=== PATIENT | male | born 1960 | race African-American/Black ===

== ENCOUNTER 2018-06-10 12:14 | Emergency (ER) | payer OTHER ==
--- NOTE | 2018-06-10 13:18 | RAD REPORT ---
EXAM DESCRIPTION: RAD - Hip Right 2 View - 06/10/2018 1:12 pm CLINICAL HISTORY: Right hip pain FINDINGS: No fracture or dislocation is seen. Vascular calcifications are noted . Mild osteoarthritis involves the right hip consisting joint space narrowing and subchondral scleros is
--- NOTE | 2018-06-10 13:55 | EDPHYS ---
Physician Documentation [facility] Name: Toni Duncan Age: 58 yrs Sex: Male : 1960 Arrival Date: 06/10/2018 Time: 12:18 Bed 10 Private MD: ED Physician Mookie Lomeli HPI: 06/10 13:45 This 58 yrs old Black Male presents to ER via Ambulatory with complaints of Hip Pain. pm1 13:45 The patient or guardian reports pain. that occurred outdoors, sustained from a fall, pm1 There is no obvious deformity, The patient is able to self ambulate. The patient is able to bear their full body weight. There is no radiation of the patient's discomfort. The complaints affect the . 13:45 Onset: The symptoms/episode began/occurred 3 month(s) ago. Modifying factors: The pm1 symptoms are alleviated by nothing, the symptoms are aggravated by any movement. Associated signs and symptoms: Pertinent negatives: fever, nausea, shortness of breath, vomiting, weakness. The patient has not recently seen a physician. Patient with fall three months ago with resulting right hip pain. Patient able to ambulate. 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 - Social history:: Smoking status: Patient/guardian denies using tobacco. - Ebola Screening: : Patient negative for fever greater than or equal to 101.5 degrees Fahrenheit, and additional compatible Ebola Virus Disease symptoms Patient denies exposure to infectious person Patient denies travel to an Ebola-affected area in the 21 days before illness onset. ROS: 13:45 Constitutional: Negative for fever, chills, and weight loss, Eyes: Negative for injury, pm1 pain, redness, and discharge, ENT: Negative for injury, pain, and discharge, Neck: Negative for injury, pain, and swelling, Cardiovascular: Negative for chest pain, palpitations, and edema, Respiratory: Negative for shortness of breath, cough, wheezing, and pleuritic chest pain, Abdomen/GI: Negative for abdominal pain, nausea, vomiting, diarrhea, and constipation, Back: Negative for injury and pain, : Negative for injury, bleeding, discharge, and swelling. 13:45 Skin: Negative for injury, rash, and discoloration, Neuro: Negative for headache, weakness, numbness, tingling, and seizure. 13:45 MS/extremity: Positive for pain, of the right hip, Negative for decreased range of motion, deformity. Exam: 13:45 Constitutional: This is a well developed, well nourished patient who is awake, alert, pm1 and in no acute distress. Head/Face: Normocephalic, atraumatic. Eyes: Pupils equal round and reactive to light, extra-ocular motions intact. Lids and lashes normal. Conjunctiva and sclera are non-icteric and not injected. Cornea within normal limits. Periorbital areas with no swelling, redness, or edema. ENT: Nares patent. No nasal discharge, no septal abnormalities noted. Tympanic membranes are normal and external auditory canals are clear. Oropharynx with no redness, swelling, or masses, exudates, or evidence of obstruction, uvula midline. Mucous membranes moist. Neck: Trachea midline, no thyromegaly or masses palpated, and no cervical lymphadenopathy. Supple, full range of motion without nuchal rigidity, or vertebral point tenderness. No Meningismus. Chest/axilla: Normal chest wall appearance and motion. Nontender with no deformity. No lesions are appreciated. Cardiovascular: Regular rate and rhythm with a normal S1 and S2. No gallops, murmurs, or rubs. Normal PMI, no JVD. No pulse deficits. Respiratory: Lungs have equal breath sounds bilaterally, clear to auscultation and percussion. No rales, rhonchi or wheezes noted. No increased work of breathing, no retractions or nasal flaring. Abdomen/GI: Soft, non-tender, with normal bowel sounds. No distension or tympany. No guarding or rebound. No evidence of tenderness throughout. Back: No spinal tenderness. No costovertebral tenderness. Full range of motion. Skin: Warm, dry with normal turgor. Normal color with no rashes, no lesions, and no evidence of cellulitis. 13:45 Musculoskeletal/extremity: Extremities: grossly normal except: noted in the right hip: pain, ROM: intact in all extremities. 13:45 Neuro: Orientation: is normal, Motor: is normal, moves all fours. Vital Signs: 12:43 BP 187 / 103; Pulse 88; Resp 18; Temp 97.9(O); Pulse Ox 100% on R/A; Weight 86.18 kg; hj Height 5 ft. 8 in. (172.72 cm); Pain 3/10; 12:43 Body Mass Index 28.89 (86.18 kg, 172.72 cm) hj MDM: 13:45 Data reviewed: vital signs. Data interpreted: Pulse oximetry: on room air is 100 %. pm1 Interpretation: normal. 13:46 Patient medically screened. pm1 13:54 Counseling: I had a detailed discussion with the patient and/or guardian regarding: the pm1 historical points, exam findings, and any diagnostic results supporting the discharge/admit diagnosis, radiology results, the need for outpatient follow up, to return to the emergency department if symptoms worsen or persist or if there are any questions or concerns that arise at home. 06/10 12:58 Order name: Hip Right 2 View XRAY; Complete Time: 13:45 Administered Medications: No medications were administered Disposition: 06/10/18 13:55 Discharged to Home. Impression: Pain in right hip, Other specified arthritis, right hip. - Condition is Stable. - Discharge Instructions: Joint Pain, Arthritis, Hip Pain. - Prescriptions for Tramadol 50 mg Oral Tablet - take 1 tablet by ORAL route every 8 hours as needed; 20 tablet. - Medication Reconciliation Form, Thank You Letter, Prescription Opioid Use form. - Follow up: Emergency Department; When: As needed; Reason: Worsening of condition. Follow up: Private Physician; When: 2 - 3 days; Reason: Recheck today's complaints, Continuance of care, Re-evaluation by your physician. - Problem is new. - Symptoms have improved. Addendum: 06/23/2018 07:27 Co-signature as Attending Physician, Mookie Lomeli MD I agree with the assessment and k dr plan of care. Signatures: Dispatcher [employer] EDMO Mookie Lomeli MD MD [facility] Gurinder Goel RN RN hj Marinas, Titi, COMMUNICATIONS COORDINATOR COMMUNICATIONS COORDINATOR pm1 Corrections: (The following items were deleted from the chart) 01 13:56 13:55 06/10/2018 13:55 Discharged to Home. Impression: Pain in right hip. Condition is pm1 Stable. Forms are Medication Reconciliation Form, Thank You Letter, Antibiotic Education, Prescription Opioid Use. Follow up: Emergency Department; When: As needed; Reason: Worsening of condition. Follow up: Private Physician; When: 2 - 3 days; Reason: Recheck today's complaints, Continuance of care, Re-evaluation by your physician. Problem is new. Symptoms have improved. pm1 14:02 13:56 06/10/2018 13:55 Discharged to Home. Impression: Pain in right hip; Other hj specified arthritis, right hip. Condition is Stable. Discharge Instructions: Joint Pain, Arthritis, Hip Pain. Prescriptions for Tramadol 50 mg Oral Tablet - take 1 tablet by ORAL route every 8 hours as needed; 20 tablet. and Forms are Medication Reconciliation Form, Thank You Letter, Prescription Opioid Use. Follow up: Emergency Department; When: As needed; Reason: Worsening of condition. Follow up: Private Physician; When: 2 - 3 days; Reason: Recheck today's complaints, Continuance of care, Re-evaluation by your physician. Problem is new. Symptoms have improved. pm1
--- NOTE | 2018-06-10 13:55 | ER ---
Nurse's Notes [facility] Name: Toni Duncan Age: 58 yrs Sex: Male : 1960 Arrival Date: 06/10/2018 Time: 12:18 Bed 10 Private MD: Diagnosis: Pain in right hip;Other specified arthritis, right hip Presentation: 06/10 12:39 Presenting complaint: Patient states: i fell out of a chair a month ago, and landed on hj my butt; took an US that time; now the pain is still there, R hip, pain is 5/10; denies tingling and numbness on RF leg;. Transition of care: patient was not received from another setting of care. Onset of symptoms was June 10, 2018. Risk Assessment: Do you want to hurt yourself or someone else? Patient reports no desire to harm self or others. Initial Sepsis Screen: Does the patient meet any 2 criteria? No. Patient's initial sepsis screen is negative. Does the patient have a suspected source of infection? No. Patient's initial sepsis screen is negative. Care prior to arrival: None. 12:39 Method Of Arrival: Ambulatory 12:39 Acuity: MIKE 4 hj Triage Assessment: 12:43 General: Appears in no apparent distress. uncomfortable, Behavior is calm, cooperative, hj appropriate for age. Pain: Complains of pain in R hip. 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 - Social history:: Smoking status: Patient/guardian denies using tobacco. - Ebola Screening: : Patient negative for fever greater than or equal to 101.5 degrees Fahrenheit, and additional compatible Ebola Virus Disease symptoms Patient denies exposure to infectious person Patient denies travel to an Ebola-affected area in the 21 days before illness onset. Screenin:42 Abuse screen: Denies threats or abuse. Denies injuries from another. Nutritional hj screening: No deficits noted. Tuberculosis screening: No symptoms or risk factors identified. Fall Risk Fall in past 12 months (25 points). Vital Signs: 12:43 BP 187 / 103; Pulse 88; Resp 18; Temp 97.9(O); Pulse Ox 100% on R/A; Weight 86.18 kg; hj Height 5 ft. 8 in. (172.72 cm); Pain 3/10; 12:43 Body Mass Index 28.89 (86.18 kg, 172.72 cm) hj ED Course: 12:18 Patient arrived in ED. mr 12:41 Triage completed. hj 12:43 Arm band placed on right wrist. hj 12:43 Patient has correct armband on for positive identification. Placed in gown. Bed in low hj position. Call light in reach. 13:05 Patient moved to radiology AMBULATED. jb2 13:12 Hip Right 2 View XRAY In Process Unspecified. EDMS 13:13 X-ray completed. Patient tolerated procedure well. Patient moved back from radiology. jb2 13:45 Titi Cloud NP is PHCP. pm1 13:45 Mookie Lomeli MD is Attending Physician. pm1 13:51 Gurinder Goel RN is Primary Nurse. hj 14:01 No provider procedures requiring assistance completed. Patient did not have IV access hj during this emergency room visit. Administered Medications: No medications were administered Outcome: 13:55 Discharge ordered by . pm1 14:01 Discharged to home ambulatory. hj 14:01 Condition: stable 14:01 Discharge instructions given to patient, Instructed on discharge instructions, follow up and referral plans. medication usage, Demonstrated understanding of instructions, follow-up care, medications, Prescriptions given X 1. 14:02 Patient left the ED. Signatures: Dispatcher [employer] EDOH WaiLynda Anjana Davilae jb2 Gurinder Goel RN RN Titi Calvert NP [employer] P[employer]ER pm1 Corrections: (The following items were deleted from the chart) 12:45 12:43 Pulse 88bpm; Resp 18bpm; Pulse Ox 100% RA; Temp 97.9F Oral; 86.18 kg; Height 5 hj ft. 8 in.; BMI: 28.8; Pain 3/10; hj
== END 2018-06-10 14:02 | disposition home or self-care (01) ==
LOC: ER 12:14
DX: M13.851 Other specified arthritis, right hip (principal); I10 Essential (primary) hypertension; Z99.2 Dependence on renal dialysis
CPT/HCPCS: 99283

== ENCOUNTER 2018-10-01 10:22 | Emergency (ER) | payer OTHER ==
--- NOTE | 2018-10-01 10:47 | ER ---
Nurse's Notes [facility] Name: Toni Duncan Age: 58 yrs Sex: Male : 1960 Arrival Date: 10/01/2018 Time: 10:24 Bed 14 Private MD: Raul Gomez Atiq Diagnosis: Person with feared health complaint in whom no diagnosis is made Presentation: 10/01 10:34 Presenting complaint: Patient states: Dialysis this morning from [id number], reports jl7 neck pain every time he gets done with dialysis and sinus pain. "The dialysis nurse wanted me to get checked out cause I was moving my feet back and forth real fast and she thought maybe I had a seizure. I was talking to her the whole time so I don't know.". Transition of care: patient was not received from another setting of care. Acute neurological deficit: none identified. Onset of symptoms was October 01, 2018 at 10:00. Risk Assessment: Do you want to hurt yourself or someone else? Patient reports no desire to harm self or others. Initial Sepsis Screen: Does the patient meet any 2 criteria? No. Patient's initial sepsis screen is negative. Does the patient have a suspected source of infection? No. Patient's initial sepsis screen is negative. Care prior to arrival: None. 10:34 Method Of Arrival: Ambulatory jl7 10:34 Acuity: MIKE 3 jl7 Historical: - Allergies: 10:38 No Known Allergies; jl7 - Home Meds: 10:38 losartan 50 mg oral tab [Active]; furosemide 80 mg Oral tab 1 tab 2 times per day jl7 [Active]; isosorbide mononitrate 30 mg Oral Tb24 1 tab twice a day [Active]; aspirin 81 mg Oral chew [Active]; carvedilol 25 mg Oral tab 1 tab 2 times per day [Active]; Novolin N Sub-Q [Active]; - PMHx: 10:38 dialyis; Hypertension; ESRD; Diabetes - NIDDM; jl7 - Immunization history:: Adult Immunizations up to date. - Social history:: Smoking status: Patient/guardian denies using tobacco. - Ebola Screening: : No symptoms or risks identified at this time. Screenin:40 Abuse screen: Denies threats or abuse. Denies injuries from another. Nutritional jl7 screening: No deficits noted. Tuberculosis screening: No symptoms or risk factors identified. Fall Risk None identified. Assessment: 10:40 General: Appears in no apparent distress. comfortable, Behavior is calm, cooperative, jl7 appropriate for age. Pain: Complains of pain in bridge of nose. Neuro: Level of Consciousness is awake, alert, obeys commands, Oriented to person, place, time, situation. Cardiovascular: Patient's skin is warm and dry. Respiratory: Airway is patent Respiratory effort is even, unlabored, Respiratory pattern is regular, symmetrical. GI: No signs and/or symptoms were reported involving the gastrointestinal system. : No signs and/or symptoms were reported regarding the genitourinary system. EENT: No signs and/or symptoms were reported regarding the EENT system. Derm: Skin is pink, warm \\T\\ dry. Musculoskeletal: No signs and/or symptoms reported regarding the musculoskeletal system. Vital Signs: 10:38 BP 169 / 103; Pulse 87; Resp 16 S; Temp 97.9(O); Pulse Ox 97% on R/A; Weight 86.18 kg jl7 (R); Pain 6/10; ED Course: 10:24 Patient arrived in ED. as 10:24 Raul Gomez MD is Private Physician. as 10:26 Amberly Olguin RN is Primary Nurse. jl7 10:36 Myra Santos FNP-C is PHCP. snw 10:36 Soto Vásquez MD is Attending Physician. snw 10:36 Triage completed. jl7 10:38 Arm band placed on right wrist. jl7 10:40 Patient has correct armband on for positive identification. Bed in low position. Call jl7 light in reach. Side rails up X 1. Pulse ox on. NIBP on. 10:45 Raul Gomez MD is Referral Physician. snw 10:59 No provider procedures requiring assistance completed. Patient did not have IV access jl7 during this emergency room visit. Administered Medications: No medications were administered Outcome: 10:46 Discharge ordered by . snw 10:59 Discharged to home ambulatory, with family. jl7 10:59 Condition: stable 10:59 Discharge instructions given to patient, family, Instructed on discharge instructions, follow up and referral plans. Demonstrated understanding of instructions, follow-up care. 10:59 Patient left the ED. jl7 Signatures: Myra Santos, VANCE-C BOLT SAWYER-Csnw Deanna Perry Jahala, RN RN jl7
--- NOTE | 2018-10-01 10:47 | EDPHYS ---
Physician Documentation [facility] Name: Toni Duncan Age: 58 yrs Sex: Male : 1960 Arrival Date: 10/01/2018 Time: 10:24 Bed 14 Private MD: Raul Gomez Atiq ED Physician Soto Vásquez HPI: 10/01 11:22 This 58 yrs old Black Male presents to ER via Ambulatory with complaints of Neck Pain, snw <24hrs Old, Sinus Pain. 11:22 The patient or guardian complains of tenderness. The symptoms are located on the bridge snw of nose and right trapezius and left trapezius. Onset: The symptoms/episode began/occurred post dialysis. Context: The neck injury/problem resulted from pt states this happens post dialysis regularly. Associated signs and symptoms: Pertinent negatives: fever, headache, nausea, weakness. The pain does not radiate. Modifying factors: The symptoms are alleviated by time the symptoms are aggravated by dialysis. Severity of symptoms: At their worst the symptoms were mild. The patient has experienced similar episodes in the past. The patient has been recently seen by a physician:. Historical: - Allergies: 10:38 No Known Allergies; jl7 - Home Meds: 10:38 losartan 50 mg oral tab [Active]; furosemide 80 mg Oral tab 1 tab 2 times per day jl7 [Active]; isosorbide mononitrate 30 mg Oral Tb24 1 tab twice a day [Active]; aspirin 81 mg Oral chew [Active]; carvedilol 25 mg Oral tab 1 tab 2 times per day [Active]; Novolin N Sub-Q [Active]; - PMHx: 10:38 dialyis; Hypertension; ESRD; Diabetes - NIDDM; jl7 - Immunization history:: Adult Immunizations up to date. - Social history:: Smoking status: Patient/guardian denies using tobacco. - Ebola Screening: : No symptoms or risks identified at this time. ROS: 11:19 Constitutional: Negative for fever, chills, and weight loss, Eyes: Negative for injury, snw pain, redness, and discharge, ENT: Negative for injury, pain, and discharge, Cardiovascular: Negative for chest pain, palpitations, and edema, Respiratory: Negative for shortness of breath, cough, wheezing, and pleuritic chest pain, Abdomen/GI: Negative for abdominal pain, nausea, vomiting, diarrhea, and constipation, Back: Negative for injury and pain, : Negative for injury, bleeding, discharge, and swelling, MS/Extremity: Negative for injury and deformity, Skin: Negative for injury, rash, and discoloration, Neuro: Negative for headache, weakness, numbness, tingling, and seizure, Psych: Negative for depression, anxiety, suicide ideation, homicidal ideation, and hallucinations. 11:19 Neck: Positive for tenderness, pt states he has a pulling sensation to lateral neck and a pressure to the bridge of his nose post dialysis several times, Dialysis nurse recommended pt come to ED as he had above s/s and moved his legs a lot during dialysis. Exam: 11:04 Constitutional: This is a well developed, well nourished patient who is awake, alert, snw and in no acute distress. Head/Face: Normocephalic, atraumatic. Eyes: Pupils equal round and reactive to light, extra-ocular motions intact. Lids and lashes normal. Conjunctiva and sclera are non-icteric and not injected. Cornea within normal limits. Periorbital areas with no swelling, redness, or edema. ENT: Nares patent. No nasal discharge, no septal abnormalities noted. Tympanic membranes are normal and external auditory canals are clear. Oropharynx with no redness, swelling, or masses, exudates, or evidence of obstruction, uvula midline. Mucous membranes moist. Chest/axilla: Normal chest wall appearance and motion. Nontender with no deformity. No lesions are appreciated. Cardiovascular: Regular rate and rhythm with a normal S1 and S2. No gallops, murmurs, or rubs. Normal PMI, no JVD. No pulse deficits. Respiratory: Lungs have equal breath sounds bilaterally, clear to auscultation and percussion. No rales, rhonchi or wheezes noted. No increased work of breathing, no retractions or nasal flaring. Abdomen/GI: Soft, non-tender, with normal bowel sounds. No distension or tympany. No guarding or rebound. No evidence of tenderness throughout. Back: No spinal tenderness. No costovertebral tenderness. Full range of motion. Skin: Warm, dry with normal turgor. Normal color with no rashes, no lesions, and no evidence of cellulitis. MS/ Extremity: Pulses equal, no cyanosis. Neurovascular intact. Full, normal range of motion. Neuro: Awake and alert, GCS 15, oriented to person, place, time, and situation. Cranial nerves II-XII grossly intact. Motor strength 5/5 in all extremities. Sensory grossly intact. Cerebellar exam normal. Normal gait. Psych: Awake, alert, with orientation to person, place and time. Behavior, mood, and affect are within normal limits. 11:04 Neck: External neck: tenderness, that is mild, of the left mid cervical area, right mid cervical area, left trapezius and right trapezius. Vital Signs: 10:38 BP 169 / 103; Pulse 87; Resp 16 S; Temp 97.9(O); Pulse Ox 97% on R/A; Weight 86.18 kg jl7 (R); Pain 6/10; MDM: 10:36 Patient medically screened. snw 11:18 Data reviewed: vital signs, nurses notes. Data interpreted: Pulse oximetry: on room air snw is 97 %. Interpretation: acceptable. Counseling: I had a detailed discussion with the patient and/or guardian regarding: the historical points, exam findings, and any diagnostic results supporting the discharge/admit diagnosis, the presence of at least one elevated blood pressure reading (>120/80) during this emergency department visit, the need for outpatient follow up, to return to the emergency department if symptoms worsen or persist or if there are any questions or concerns that arise at home. Special discussion: I have referred the patient to see his PCP for further evaluation of high blood pressure. Based on the history and exam findings, there is no indication for further emergent testing or inpatient evaluation. I discussed with the patient/guardian the need to see the primary care provider for further evaluation of the symptoms. Administered Medications: No medications were administered Disposition: 13:06 Co-signature as Attending Physician, Soto Vásquez MD. rn Disposition: 10/01/18 10:46 Discharged to Home. Impression: Person with feared health complaint in whom no diagnosis is made. - Condition is Stable. - Discharge Instructions: Sinus Headache, Neck Exercises. - Medication Reconciliation Form, Thank You Letter, Antibiotic Education, Prescription Opioid Use form. - Follow up: Raul Gomez MD; When: As needed; Reason: Recheck today's complaints, Continuance of care, Re-evaluation by your physician. Follow up: Emergency Department; When: As needed; Reason: Fever > 102 F, Worsening of condition. Signatures: Myra Santos, ANIMAL PHYSIOLOGIST-C ANIMAL PHYSIOLOGIST-Csnw Soto Vásquez MD MD rn Leal, Jahala, RN RN jl7 Corrections: (The following items were deleted from the chart) 10:59 10:46 10/01/2018 10:46 Discharged to Home. Impression: Person with feared health jl7 complaint in whom no diagnosis is made. Condition is Stable. Forms are Medication Reconciliation Form, Thank You Letter, Antibiotic Education, Prescription Opioid Use. Follow up: Raul Gomez; When: As needed; Reason: Recheck today's complaints, Continuance of care, Re-evaluation by your physician. Follow up: Emergency Department; When: As needed; Reason: Fever > 102 F, Worsening of condition. snw
== END 2018-10-01 10:59 | disposition home or self-care (01) ==
LOC: ER 10:22
DX: Z71.1 Person with feared health complaint in whom no diagnosis is made (principal); M54.2 Cervicalgia; J34.89 Other specified disorders of nose and nasal sinuses; E11.22 Type 2 diabetes mellitus with diabetic chronic kidney disease; I12.0 Hypertensive chronic kidney disease with stage 5 chronic kidney disease or end stage renal disease; N18.6 End stage renal disease; Z99.2 Dependence on renal dialysis
CPT/HCPCS: 99283

== ENCOUNTER 2019-03-13 06:19 | Emergency (ER) | payer OTHER ==
--- NOTE | 2019-03-13 08:03 | EDPHYS ---
Physician Documentation [facility] Name: Toni Duncan Age: 59 yrs Sex: Male : 1960 Arrival Date: 03/13/2019 Time: 06:20 Bed 7 Private MD: ED Physician Salvador العراقي HPI: 03/13 06:37 This 59 yrs old Black Male presents to ER via Ambulatory with complaints of Blister on jr8 foot. 06:37 The affected area is on the lateral side of right foot and right fifth toe. Progress: jr8 The patient reports no change in. The patient has not experienced similar symptoms in the past. Pt with hx of ESRD and DMII with wound to right lateral dorsum of foot for 1.5 weeks after wearing poorly fitting boots. . Historical: - Allergies: 06:31 No Known Allergies; ak1 - Home Meds: 06:31 isosorbide mononitrate 30 mg Oral Tb24 1 tab twice a day [Active]; ak1 06:35 carvedilol 25 mg Oral tab 1 tab 2 times per day [Active]; furosemide 80 mg Oral tab 1 wh tab 2 times per day [Active]; 06:36 aspirin 81 mg Oral chew 1 tab once daily [Active]; Insulin: Regular Sub-Q [Active]; wh - PMHx: 06:31 Diabetes - NIDDM; dialyis; ESRD; Hypertension; ak1 - PSHx: 06:31 dialysis shunt to left arm; ak1 - Immunization history:: Adult Immunizations unknown. - Social history:: Smoking status: Patient/guardian denies using tobacco. - Ebola Screening: : No symptoms or risks identified at this time. ROS: 06:37 Constitutional: Negative for fever, chills, and weight loss, Eyes: Negative for injury, jr8 pain, redness, and discharge, ENT: Negative for injury, pain, and discharge, Neck: Negative for injury, pain, and swelling, Cardiovascular: Negative for chest pain, palpitations, and edema, Respiratory: Negative for shortness of breath, cough, wheezing, and pleuritic chest pain, Abdomen/GI: Negative for abdominal pain, nausea, vomiting, diarrhea, and constipation, Back: Negative for injury and pain, MS/Extremity: Negative for injury and deformity. 06:37 MS/extremity: Positive for wound to dorsum of right lateral foot. Exam: 06:45 Constitutional: This is a well developed, well nourished patient who is awake, alert, jr8 and in no acute distress. Head/Face: Normocephalic, atraumatic. Eyes: Pupils equal round and reactive to light, extra-ocular motions intact. Lids and lashes normal. Conjunctiva and sclera are non-icteric and not injected. Cornea within normal limits. Periorbital areas with no swelling, redness, or edema. ENT: Nares patent. No nasal discharge, no septal abnormalities noted. Tympanic membranes are normal and external auditory canals are clear. Oropharynx with no redness, swelling, or masses, exudates, or evidence of obstruction, uvula midline. Mucous membranes moist. Neck: Trachea midline, no thyromegaly or masses palpated, and no cervical lymphadenopathy. Supple, full range of motion without nuchal rigidity, or vertebral point tenderness. No Meningismus. Chest/axilla: Normal chest wall appearance and motion. Nontender with no deformity. No lesions are appreciated. Cardiovascular: Regular rate and rhythm with a normal S1 and S2. No gallops, murmurs, or rubs. Normal PMI, no JVD. No pulse deficits. Respiratory: Lungs have equal breath sounds bilaterally, clear to auscultation and percussion. No rales, rhonchi or wheezes noted. No increased work of breathing, no retractions or nasal flaring. Abdomen/GI: Soft, non-tender, with normal bowel sounds. No distension or tympany. No guarding or rebound. No evidence of tenderness throughout. MS/ Extremity: Pulses equal, no cyanosis. Neurovascular intact. Full, normal range of motion. 06:45 Skin: Appearance: normal except for affected area, Diabetic foot wound to dorsal aspect of right lateral foot including the fifth digit. Stage three, eschar present. Approx [id number]. Without surrounding cellulitis.. Vital Signs: 06:28 BP 220 / 116; Pulse 103; Resp 16; Temp 97.9(O); Pulse Ox 99% on R/A; Weight 58.97 kg ak1 (R); Height 5 ft. 8 in. (172.72 cm) (R); Pain 0/10; 07:33 BP 187 / 100; Pulse 101; Resp 17; Temp 98.1(O); Pulse Ox 99% on R/A; mh5 08:06 BP 191 / 100; Pulse 99; Resp 18; Pulse Ox 99% ; sv 06:28 Body Mass Index 19.77 (58.97 kg, 172.72 cm) ak 08:06 Hebert CESPEDES aware of vitals, pt has not yet taken his meds this morning. MDM: 06:31 Patient medically screened. jr8 08:00 Data reviewed: vital signs, nurses notes, radiologic studies, and as a result, I will jr8 discharge patient. Counseling: I had a detailed discussion with the patient and/or guardian regarding: the historical points, exam findings, and any diagnostic results supporting the discharge/admit diagnosis, radiology results. ED course: Called wound healing, able to see patient now in clinic with Dr. Osborn. 03/13 06:32 Order name: XRAY Foot RIGHT 3 View jr8 Administered Medications: No medications were administered Disposition: 03/14 07:22 Co-signature as Attending Physician, Salvador العراقي MD I agree with the assessment and tw4 plan of care. Disposition: 03/13/19 08:02 Discharged to Direct to Physicians Office. Impression: Open wound of foot. - Condition is Stable. - Discharge Instructions: Diabetes and Foot Care, Wound Care. - Medication Reconciliation Form, Thank You Letter form. - Follow up: Ez Osborn DPM; When: Upon discharge from the Emergency Department; Reason: Wound Recheck. - Problem is new. - Symptoms are unchanged. Signatures: Dispatcher [employer] EDMS Mariana Britton RN RN sv Roszak, Josh, PA PA [facility] Sonya Britt RN RN [facility] Salvador العراقي MD MD tw4 Corrections: (The following items were deleted from the chart) 03/13 06:35 06:31 Home Meds: carvedilol 25 mg Oral tab 1 tab 2 times per day; [facility] 06:31 Home Meds: furosemide 80 mg Oral tab 1 tab 2 times per day; [facility] 06:31 Home Meds: aspirin 81 mg Oral chew; [facility] 06:31 Home Meds: losartan 50 mg Oral tab; [facility] 06:31 Home Meds: Novolin N Sub-Q; ak1 08:07 08:02 03/13/2019 08:02 Discharged to Direct to Physicians Office. Impression: Open sv wound of foot. Condition is Stable. Forms are Medication Reconciliation Form, Thank You Letter, Antibiotic Education, Prescription Opioid Use. Follow up: Ez Osborn; When: Upon discharge from the Emergency Department; Reason: Wound Recheck. Problem is new. Symptoms are unchanged. jr8
--- NOTE | 2019-03-13 08:03 | ER ---
Nurse's Notes [facility] Name: Toni Duncan Age: 59 yrs Sex: Male : 1960 Arrival Date: 03/13/2019 Time: 06:20 Bed 7 Private MD: Diagnosis: Open wound of foot Presentation: 03/13 06:29 Presenting complaint: Patient states: right foot wound from his boot rubbing. ak1 Transition of care: patient was not received from another setting of care. Onset of symptoms is unknown. Risk Assessment: Do you want to hurt yourself or someone else? Patient reports no desire to harm self or others. Initial Sepsis Screen: Does the patient meet any 2 criteria? No. Patient's initial sepsis screen is negative. Does the patient have a suspected source of infection? No. Patient's initial sepsis screen is negative. Care prior to arrival: None. 06:29 Method Of Arrival: Ambulatory ak1 06:29 Acuity: MIKE 3 ak1 Triage Assessment: 06:31 General: Appears in no apparent distress. Behavior is calm, cooperative. Pain: Denies ak1 pain. Historical: - Allergies: 06:31 No Known Allergies; ak1 - Home Meds: 06:31 isosorbide mononitrate 30 mg Oral Tb24 1 tab twice a day [Active]; ak1 06:35 carvedilol 25 mg Oral tab 1 tab 2 times per day [Active]; furosemide 80 mg Oral tab 1 wh tab 2 times per day [Active]; 06:36 aspirin 81 mg Oral chew 1 tab once daily [Active]; Insulin: Regular Sub-Q [Active]; wh - PMHx: 06:31 Diabetes - NIDDM; dialyis; ESRD; Hypertension; ak1 - PSHx: 06:31 dialysis shunt to left arm; ak1 - Immunization history:: Adult Immunizations unknown. - Social history:: Smoking status: Patient/guardian denies using tobacco. - Ebola Screening: : No symptoms or risks identified at this time. Screenin:31 Abuse screen: Denies threats or abuse. Denies injuries from another. Nutritional wh screening: No deficits noted. Tuberculosis screening: No symptoms or risk factors identified. Fall Risk None identified. Assessment: 06:37 General: Appears in no apparent distress. Behavior is calm, cooperative, appropriate wh for age. Pain: Denies pain. Neuro: Level of Consciousness is awake, alert, obeys commands, Oriented to person, place, time, situation, Appropriate for age. Cardiovascular: Heart tones S1 S2 Capillary refill < 3 seconds. Cardiovascular: Dialysis shunt: in the left arm, with palpable thrill, with auscultated bruit. Respiratory: Airway is patent Respiratory effort is even, unlabored, Respiratory pattern is regular, symmetrical, Breath sounds are clear bilaterally. GI: Abdomen is round non-distended. : No signs and/or symptoms were reported regarding the genitourinary system. EENT: No signs and/or symptoms were reported regarding the EENT system. Derm: Skin is intact, is healthy with good turgor, Skin is pink, warm \T\ dry. normal. Derm: Skin is intact, is healthy with good turgor, Skin is pink, warm \T\ dry. normal, Wound noted Dorsum Right foot Wound is Stage 3. Musculoskeletal: Circulation, motion, and sensation intact. 07:20 Reassessment: Patient appears in no apparent distress at this time. No changes from sv previously documented assessment. Patient and/or family updated on plan of care and expected duration. Pain level reassessed. Patient is alert, oriented x 3, equal unlabored respirations, skin warm/dry/pink. 07:57 Reassessment: Rahel Duncan (spouse) phone #[phone]. [facility]. sv 08:07 Reassessment: Patient appears in no apparent distress at this time. No changes from sv previously documented assessment. Patient and/or family updated on plan of care and expected duration. Pain level reassessed. Patient is alert, oriented x 3, equal unlabored respirations, skin warm/dry/pink. Vital Signs: 06:28 BP 220 / 116; Pulse 103; Resp 16; Temp 97.9(O); Pulse Ox 99% on R/A; Weight 58.97 kg ak1 (R); Height 5 ft. 8 in. (172.72 cm) (R); Pain 0/10; 07:33 BP 187 / 100; Pulse 101; Resp 17; Temp 98.1(O); Pulse Ox 99% on R/A; mh5 08:06 BP 191 / 100; Pulse 99; Resp 18; Pulse Ox 99% ; sv 06:28 Body Mass Index 19.77 (58.97 kg, 172.72 cm) ak1 08:06 Hebert CESPEDES aware of vitals, pt has not yet taken his meds this morning. sv ED Course: 06:20 Patient arrived in ED. ds1 06:21 Hebert Hernandez PA is PHCP. jr8 06:21 Salvador العراقي MD is Attending Physician. jr8 06:28 Arm band placed on Patient placed in an exam room, on a stretcher, on pulse oximetry, ak1 Patient notified of wait time. 06:29 Triage completed. ak1 06:31 Erin Walters is Primary Nurse. wh 06:31 Patient has correct armband on for positive identification. Bed in low position. Call light in reach. Side rails up X 1. Pulse ox on. NIBP on. 06:31 Patient has correct armband on for positive identification. Bed in low position. Call ak1 light in reach. Side rails up X 1. Pulse ox on. NIBP on. 06:54 XRAY Foot RIGHT 3 View In Process Unspecified. EDMS 07:37 Awaiting radiology results. sv 07:37 Primary Nurse role handed off by Erin Walters sv 07:37 Mariana Britton, ABELARDO is Primary Nurse. sv 08:02 Ez Osborn DPM is Referral Physician. jr8 08:06 No provider procedures requiring assistance completed. Patient did not have IV access sv during this emergency room visit. Administered Medications: No medications were administered Outcome: 08:02 Discharge ordered by . jr8 08:06 Discharged to home via wheelchair, to [facility] sv 08:06 Condition: stable 08:06 Discharge instructions given to patient, Instructed on discharge instructions, follow up and referral plans. Demonstrated understanding of instructions, follow-up care. 08:07 Patient left the ED. sv Signatures: Dispatcher [employer] EDMS Mariana Britton, RN RN Yodit Ji ds1 Hebert Hernandez PA PA jr8 Krenek, Amber, RN RN Joanna Dooley [facility] Erin Walters Corrections: (The following items were deleted from the chart) 06:35 06:31 Home Meds: carvedilol 25 mg Oral tab 1 tab 2 times per day; [facility] 06:35 06:31 Home Meds: furosemide 80 mg Oral tab 1 tab 2 times per day; [facility] 06: Home Meds: aspirin 81 mg Oral chew; [facility] 06: Home Meds: losartan 50 mg Oral tab; [facility] 06:31 Home Meds: Novolin N Sub-Q; [facility]
[2019-03-13 08:11] VITALS: O2SAT 99
[2019-03-13 08:13] VITALS: TEMP 98.1
[2019-03-13 08:14] VITALS: BP 191/100
--- NOTE | 2019-03-13 09:31 | RAD REPORT ---
EXAM DESCRIPTION: RAD - Foot Right 3 View - 03/13/2019 6:54 am CLINICAL HISTORY: Right foot pain, soft tissue wound not further localized COMPARISON: None. FINDINGS: No fracture, dislocation or periosteal reaction. No erosive or destructive bone process id entifiable. The site of the wound was not noted in history or on images. Dense arterial tree calcifications are present. No air or foreign body in the soft tissues. Hardware is in place in the distal tibia from prior fracture repair. IMPRESSION: No acute or destructive bone process.
== END 2019-03-13 08:07 | disposition home or self-care (01) ==
LOC: ER 06:19
DX: E11.621 Type 2 diabetes mellitus with foot ulcer (principal); E11.22 Type 2 diabetes mellitus with diabetic chronic kidney disease; I12.0 Hypertensive chronic kidney disease with stage 5 chronic kidney disease or end stage renal disease; N18.6 End stage renal disease; Z99.2 Dependence on renal dialysis; Z79.82 Long term (current) use of aspirin; Z79.4 Long term (current) use of insulin
CPT/HCPCS: 99283

== ENCOUNTER 2019-07-17 09:37 | Inpatient (IN) | payer OTHER ==
--- OUTSIDE RECORDS SUMMARY | 2019-07-17 09:53 | XMS REPORT ---
:1960 [facility] [address] [place] [address] [address] [place] [address] Care Team Providers Name Role Phone Unavailable Unavailable Unavailable Problems This patient has no known problems. Allergies, Adverse Reactions, Alerts This patient has no known allergies or adverse reactions. Medications This patient has no known medications. Encounters Start End Encounter Admission Attending Care Care Encounter Date/Time Date/Time Type Type Clinicians Facility Department ID 2018-10-12 Inpatient [facility] [id number] 09:04:30 2019-01-27 2019-01-27 Outpatient [facility] [id number] 07:07:00 07:07:00 2019-01-26 2019-01-26 Outpatient [facility] [id number] 13:47:00 13:47:00 2018-11-11 2018-11-11 Outpatient [facility] [id number] 08:17:00 08:17:00 2018-10-05 2018-10-05 Outpatient [facility] [id number] 07:19:00 07:19:00
[2019-07-17] MEDS ORDERED: ACETAMINOPHEN 500 MG TAB PO PRN (10:59)
[2019-07-17] MEDS ORDERED: ONDANSETRON 4 MG/2 ML VIAL IV PRN (10:59)
[2019-07-17] MEDS ORDERED: MAGNESIUM HYDROXIDE 8% 30 ML PO PRN (10:59)
[2019-07-17] MEDS ORDERED: HYDRALAZINE HCL 20 MG/ML VIAL IV PRN (11:15)
--- NOTE | 2019-07-17 11:21 | P.HP ---
Certification for Inpatient Patient admitted to: Inpatient With expected LOS: >2 Midnights Patient will require the following post-hospital care: None Practitioner: I am a practitioner with admitting privileges, knowledge of patient current condition, hospital course, and medical plan of care. Services: Services provided to patient in accordance with Admission requirements found in Title 42 Section 412.3 of the Code of Federal Regulations Patient History Date of Service: 07/17/19 Primary Care Provider: Forrest Chan Reason for admission: right foot ulcer History of Present Illness: This patient is a 59-year-old male who presented for unhealing right foot ulcer. He has a history of diabetes, hypertension, end-stage renal disease on hemodialysis, diabetic foot. He was not noticed to have ulcer on the right foot for the last month. He has been following Dr. osborn. He was given oral antibiotics. He underwent superficial debridement with partial amputation of 5th toe 2 week ago. He continues to experience ulcer with some discharge. The discharge is smelly. It is painful on ambulation. No fever or chills. No nausea or vomiting. No shortness of breath or chest pain. He was directly admitted to our service from Dr. Osborn's Office for diabetic fahad infection Allergies No Known Allergies Allergy (Unverified 07/17/19 11:02) Home medications list reviewed: No (waiting for review) Home Medications: Aspirin Chewable [Aspirin Chewable*] 1 tab PO DAILY 03/16/19 Furosemide [Lasix] 1 tab PO BID 03/16/19 Isosorbide Mononitrate [Isosorbide Mononitrate ER] 1 tab PO BID 03/16/19 carvediloL [Carvedilol] 1 tab PO BID 6AM 6PM 03/16/19 Clopidogrel Bisulfate [Plavix] 75 mg PO DAILY 07/17/19 Sevelamer Carbonate [Renvela*] 1 tab PO BID 07/17/19 Sevelamer Carbonate [Renvela*] 1 tab PO TID 07/17/19 - Past Medical/Surgical History Diabetic: No -: diabetic -: htn -: dialysis -: ESRD -: foot fracture - Social History Alcohol use: No Review of Systems General: Unremarkable Eyes: Unremarkable ENT: Unremarkable Respiratory: Unremarkable Cardiovascular: Unremarkable Gastrointestinal: Unremarkable Genitourinary: Unremarkable Musculoskeletal: Other (unhealing ulcer on the right foot) Neurological: Unremarkable Physical Examination - Vital Signs Temperature: 97.1 F Blood Pressure: 160/90 Pulse: 90 Respirations: 17 Pulse Ox (%): 99 - Physical Exam General: Alert, In no apparent distress, Oriented x3, Cooperative HEENT: Atraumatic, Normocephalic, PERRLA, Mucous membr. moist/pink Neck: Supple, 2+ carotid pulse no bruit, JVD not distended Respiratory: Clear to auscultation bilaterally, Normal air movement Cardiovascular: No edema, Normal pulses, Regular rate/rhythm, Normal S1 S2, Systolic murmur Gastrointestinal: Normal bowel sounds, Soft and benign, Non-distended, No ascites Musculoskeletal: No clubbing, No swelling, Other (1 cm ulcer on the right foot with smell and swelling) Integumentary: No rashes, No breakdown Neurological: Normal gait, Normal speech, Normal strength at 5/5 x4 extr, Normal tone, Sensation intact, Normal reflexes 2+ Assessment and Plan - Plan Assessment and plans Patient was directly admitted for unhealing diabetic foot ulcer infection. He has a history of diabetes, hypertension, ESRD, and diabetic foot. He failed outpatient Surgical debridement and oral antibiotics. We started IV antibiotics including clindamycin and Zosyn empirically. Wound culture was ordered. 1. Diabetic foot ulcer infection: Patient has a nonhealing ulcer for 1 month. He received debridement and and oral antibiotics. I started IV clindamycin and Zosyn empirically. Wound culture and blood culture were ordered. Dr. Osborn was consulted. 2. ESRD: He has been on hemodialysis on Wednesday, , Wednesday. Dr. Chan was consulted. 3. DM: Started a sliding scale. A1c in the morning. Will resume home medications 4. Hypertension: Added hydralazine IV as needed. Will resume home BP medications. 5. DVT ppx on heparin. Discharge Plan: Home - Advance Directives Does patient have a Living Will: No Does patient have a Durable POA for Healthcare: No - Code Status/Comfort Care Code Status Assessed: Yes
[2019-07-17] MEDS: INSULIN -REGULAR HUMAN 50 UNIT/0.5 ML ML SQ SCH ×3 (11:30→21:00)
[2019-07-17] MEDS: CLINDAMYCIN INJ 300 MG in NA CHLORIDE 0.9% 50 ML IV SCH ×2 (12:46→16:30)
[2019-07-17] MEDS: PIPER/TAZO/NS 2.25gm 2.25 GM/50 ML BAG IVPB SCH ×2 (12:46→21:26)
[2019-07-17] MEDS ORDERED: NA CHLORIDE 0.9% 1,000 ML IV PRN (20:20)
[2019-07-17] MEDS ORDERED: MANNITOL 25% 12.5 GM/50 ML VIAL IV PRN (20:20)
--- NOTE | 2019-07-17 20:20 | P.CNS ---
Date of Consult: 07/17/19 Reason for Consult: ESRD Requesting Physician: Olga Matos Primary Care Provider: Forrest Chan Chief Complaint: right foot ulcer History of Present Illness: 59 yo BM HTN, CKD presented with a right foot ulcer. HD TTS. This patient is a 59-year-old male who presented for unhealing right foot ulcer. He has a history of diabetes, hypertension, end-stage renal disease on hemodialysis, diabetic foot. He was not noticed to have ulcer on the right foot for the last month. He has been following Dr. osborn. He was given oral antibiotics. He underwent superficial debridement with partial amputation of 5th toe 2 week ago. He continues to experience ulcer with some discharge. The discharge is smelly. It is painful on ambulation. No fever or chills. No nausea or vomiting. No shortness of breath or chest pain. He was directly admitted to our service from Dr. Osborn's Office for diabetic fahad infection Allergies No Known Allergies Allergy (Unverified 07/17/19 11:02) Home medications list reviewed: Yes Home Medications: Aspirin Chewable [Aspirin Chewable*] 1 tab PO DAILY 03/16/19 Furosemide [Lasix] 1 tab PO BID 03/16/19 Isosorbide Mononitrate [Isosorbide Mononitrate ER] 1 tab PO BID 03/16/19 carvediloL [Carvedilol] 1 tab PO BID 6AM 6PM 03/16/19 Clopidogrel Bisulfate [Plavix] 75 mg PO DAILY 07/17/19 Sevelamer Carbonate [Renvela*] 1 tab PO BID 07/17/19 Sevelamer Carbonate [Renvela*] 1 tab PO TID 07/17/19 - Past Medical/Surgical History Diabetic: No -: diabetic -: htn -: dialysis -: ESRD -: foot fracture - Social History Alcohol use: No Review of Systems 10-point ROS is otherwise unremarkable Musculoskeletal: Foot Pain Integumentary: Lesions Physical Examination Temp Pulse Resp BP Pulse Ox 97.6 F 93 H 16 150/90 H 98 07/17/19 16:00 07/17/19 16:00 07/17/19 16:00 07/17/19 16:37 07/17/19 16:00 General: Oriented x3, Cooperative HEENT: Atraumatic, Normocephalic Neck: Supple Respiratory: Clear to auscultation bilaterally Cardiovascular: Regular rate/rhythm Gastrointestinal: Soft and benign, Non-distended Musculoskeletal: No clubbing, No contractures Integumentary: No rashes, Skin lesion, Diabetic ulcer Neurological: Normal speech BG in the low 100s. Imagings Data: EXAM DESCRIPTION: RAD - Foot Right 3 View - 03/13/2019 6:54 am CLINICAL HISTORY: Right foot pain, soft tissue wound not further localized COMPARISON: None. FINDINGS: No fracture, dislocation or periosteal reaction. No erosive or destructive bone process identifiable. The site of the wound was not noted in history or on images. Dense arterial tree calcifications are present. No air or foreign body in the soft tissues. Hardware is in place in the distal tibia from prior fracture repair. IMPRESSION: No acute or destructive bone process. Conclusions/Impression: A/ ESRD on HD. HTN with CKD/ CHF. Diastolic CHF, chronic. DM II with CKD. Anemia in CKD. SIMEON/ Secondary HyperPTH. DM II with right foot ulcer. P/ Continue current POC and Medications. HD TIW. Next HD Wednesday. Restart home medications as indicated. Abx as ordered. Wound care as ordered. Follow up with podiatry. No NSAIDs. AM labs. Daily weight. Thank Dr. Matos for the consultation.
[2019-07-17] MEDS ORDERED: SEVELAMER CARBONATE 800 MG TABLET PO SCH (21:00)
[2019-07-17] MEDS ORDERED: FUROSEMIDE PO SCH (21:00)
[2019-07-17] MEDS ORDERED: ALBUMIN HUMAN 25% 50 ML IV SCH (21:00)
[2019-07-17] MEDS: ISOSORBIDE MONO SR 30 MG TAB PO SCH (21:25)
[2019-07-17] MEDS: HEPARIN 5000 UNIT/ML 1 ML VIAL SQ SCH (21:25)
[2019-07-17] MEDS: ALPRAZOLAM 0.25 MG TABLET PO PRN (21:25)
[2019-07-18] MEDS: CLINDAMYCIN INJ 300 MG in NA CHLORIDE 0.9% 50 ML IV SCH ×2 (00:19→08:11)
[2019-07-18] MEDS: carvediloL 25 MG TAB PO SCH ×2 (04:59→17:13)
[2019-07-18 05:41] LABS: Urine Appearance CLEAR; Urine Bilirubin NEGATIVE (NEG); Urine Blood NEGATIVE (NEG); Urine Color YELLOW; Urine Glucose TRACE (NEG); Urine Microscopic Reflex ORDER UMIC; Urine Protein 2+ (NEG); Urine Urobilinogen 0.2 mg/dL (0.2-1.0)
[2019-07-18 06:10] LABS: Urine Bacteria <20 /HPF (NONE SEEN); Urine Culture Reflex Order NOT NEEDED; Urine RBC <5 /HPF (NONE SEEN)
[2019-07-18 06:19] LABS: Absolute Lymphocytes (CBC) 2.1 K/uL (0.7-4.9); Basophils % 0.8 % (0-1.3); Hematocrit 29.6 % (39.6-49.0); Lymphocytes % 16.7 % (15.3-44.8); MPV 9.1 fL (7.6-11.3)
[2019-07-18 06:41] LABS: Albumin 3.4 g/dL (3.4-5.0); Bilirubin Total 0.5 mg/dL (0.2-1.0); Magnesium 2.7 mg/dL (1.8-2.4); Phosphorus 7.2 mg/dL (2.5-4.9); Potassium 4.5 mmol/L (3.5-5.1); Protein, Total 8.2 g/dL (6.4-8.2)
[2019-07-18] MEDS ORDERED: FENTANYL CITR 100 MCG/2 ML ONE (07:15)
[2019-07-18] MEDS ORDERED: LIDOCAINE 2% MPF 5 ML VIAL ONE (07:15)
[2019-07-18] MEDS ORDERED: MIDAZOLAM HCL 2 MG/2 ML INJ ONE (07:15)
[2019-07-18] MEDS ORDERED: propofoL 200 MG/20 ML VIAL IV ONE ×2 (07:15→07:49)
[2019-07-18] MEDS ORDERED: NA CHLORIDE 0.9% 0 ML ONE (07:26)
[2019-07-18] MEDS: INSULIN -REGULAR HUMAN 50 UNIT/0.5 ML ML SQ SCH ×4 (07:30→21:00)
[2019-07-18] MEDS ORDERED: NA CHLORIDE 0.9% 500 ML ONE (07:34)
--- NOTE | 2019-07-18 08:43 | P.OP ---
Preoperative diagnosis: right fifth metatarsal osteomyelitis Postoperative diagnosis: same Primary procedure: right partial fifth ray resection Secondary procedure: right fifth metatarsal bone biopsy Other procedure(s): none Anesthesia: mac with 20cc 1:1 1% lidocaine 0.5% marcaine plain Estimated blood loss: <20cc Specimen: bone Findings: as above Operative Technique: partial resection right fifth ray Complications: None Complications: none Drain(s): Other (1/4 inch [place]) Implants: none Fluids & blood products: none Transferred to: Recovery Room Condition: Good
[2019-07-18] MEDS: HEPARIN 5000 UNIT/ML 1 ML VIAL SQ SCH ×2 (09:00→22:11)
[2019-07-18] MEDS ORDERED: LIDOCAINE 1% MPF 30 ML VIAL ONE (09:08)
[2019-07-18] MEDS ORDERED: BUPIVACAINE 0.5% PF 10 ML VIAL ONE (09:08)
[2019-07-18] MEDS: ISOSORBIDE MONO SR 30 MG TAB PO SCH ×2 (10:05→22:11)
[2019-07-18] MEDS: CLOPIDOGREL 75 MG TABLET PO SCH (10:05)
[2019-07-18] MEDS: PIPER/TAZO/NS 2.25gm 2.25 GM/50 ML BAG IVPB SCH ×2 (10:06→22:10)
[2019-07-18] MEDS: SEVELAMER CARBONATE 800 MG TABLET PO SCH ×3 (10:06→17:12)
[2019-07-18] MEDS: FUROSEMIDE 40 MG TABLET PO SCH ×2 (10:06→17:12)
[2019-07-18] MEDS: ASPIRIN 81 MG CHEWABLE TABLET PO SCH (10:06)
[2019-07-18] MEDS ORDERED: VANCOMYCIN/NS 1 gm 1 GM/250 ML BAG IVPB SCH ×2 (11:00→14:00)
--- NOTE | 2019-07-18 16:41 | P.PN ---
Subjective Date of Service: 07/18/19 Primary Care Provider: Forrest Chan Chief Complaint: right foot ulcer Subjective: No new changes, No C/O voiced, Tolerating diet, Ambulating, Improving, Doing well Review of Systems General: Unremarkable Eyes: Unremarkable ENT: Unremarkable Respiratory: Unremarkable Cardiovascular: Unremarkable Gastrointestinal: Unremarkable Musculoskeletal: Foot Pain Integumentary: Lesions Neurological: Unremarkable Physical Examination - Vital Signs Temperature: 97.5 F Blood Pressure: 176/87 Pulse: 81 Respirations: 17 Pulse Ox (%): 99 - Physical Exam General: Alert, In no apparent distress, Oriented x3, Cooperative HEENT: Atraumatic, Normocephalic, PERRLA, Mucous membr. moist/pink, EOMI Neck: Supple, 2+ carotid pulse no bruit, JVD not distended Respiratory: Clear to auscultation bilaterally, Normal air movement Cardiovascular: No edema, Normal pulses, Regular rate/rhythm, Normal S1 S2 Gastrointestinal: Normal bowel sounds, Soft and benign, Non-distended, No ascites Musculoskeletal: No clubbing, No swelling, Other (right foot on dressing. No active bleeding) Integumentary: No rashes, No breakdown Neurological: Normal gait, Normal speech, Normal strength at 5/5 x4 extr, Normal tone - Studies Laboratory Data (last 24 hrs) 07/18/19 05:46: Sodium 138, Potassium 4.5, BUN 67 H, Creatinine 12.40 H*, Glucose 122 H, Phosphorus 7.2 H, Magnesium 2.7 H, Total Bilirubin 0.5, AST 9 L, ALT 14, Alkaline Phosphatase 83 07/18/19 05:46: WBC 12.8 H, Hgb 9.5 L, Hct 29.6 L, Plt Count 384 Microbiology Data (last 24 hrs): 07/17/19 14:49 Other - Right Foot Gram Stain - Final Assessment And Plan - Plan Assessment and plans Patient was directly admitted for unhealing diabetic foot ulcer infection. He has a history of diabetes, hypertension, ESRD, and diabetic foot. He failed outpatient Surgical debridement and oral antibiotics. We started IV antibiotics including clindamycin and Zosyn empirically. Wound culture pending. Dr. Osborn performed amputation. I changed IV clindamycin to vanco. ID was consulted for abx choice. 1. Diabetic foot ulcer infection: Patient has a nonhealing ulcer for 1 month. He received debridement and and oral antibiotics. I started IV clindamycin-> vanco and Zosyn empirically. Wound culture and blood culture pending. Dr. Osborn performed amputation. ID was consulted. 2. ESRD: He has been on hemodialysis on Wednesday, , Wednesday. Dr. Chan was consulted. 3. DM: Started a sliding scale. A1c in the morning. 4. Hypertension: Added hydralazine IV as needed. On BB 5. DVT ppx on heparin. Discharge Plan: Home Plan to discharge in: 48 Hours
[2019-07-18] MEDS ORDERED: VANCOMYCIN 1 GM/VIAL ONE (21:56)
--- NOTE | 2019-07-18 21:56 | P.PN ---
Date of Service: 07/18/19 Vital Signs Temp Pulse Resp BP Pulse Ox 97.5 F 81 17 176/87 H 99 07/18/19 16:42 07/18/19 16:42 07/18/19 16:42 07/18/19 16:42 07/18/19 16:42 Medications Acetaminophen (Tylenol -Extra Strength) 500 mg PO Q4HP PRN PRN Reason: temp Stop: 08/16/19 11:00 Alprazolam (Xanax) 0.25 mg PO BEDTIME PRN PRN PRN Reason: INSOMNIA Stop: 08/16/19 11:00 Last Admin: 07/17/19 21:25 Dose: 0.25 mg Aspirin (Aspirin Chewable) 81 mg PO DAILY [facility] Stop: 08/17/19 09:01 Last Admin: 07/18/19 10:06 Dose: 81 mg Calcitriol (Rocaltrol) 0.5 mcg PO DAILY [facility] Stop: 08/18/19 09:01 Carvedilol (Coreg) 25 mg PO BID 6AM 6PM [facility] Stop: 08/17/19 06:01 Last Admin: 07/18/19 17:13 Dose: 25 mg Cholecalciferol (Vitamin D 5,000 Iu Cap) 5,000 unit PO DAILY [facility] Stop: 08/18/19 09:01 Clopidogrel Bisulfate (Plavix) 75 mg PO DAILY [facility] Stop: 08/17/19 09:01 Last Admin: 07/18/19 10:05 Dose: 75 mg Epoetin Carlito (Procrit) 20,000 unit SQ 1X [facility] Stop: 08/17/19 22:01 Furosemide (Lasix) 80 mg PO BIDL [facility] Stop: 08/17/19 09:01 Last Admin: 07/18/19 17:12 Dose: 80 mg Heparin Sodium (Porcine) (Heparin 5,000 Units/Ml) 5,000 unit SQ Q12HR [facility] Stop: 08/16/19 21:01 Last Admin: 07/18/19 09:00 Dose: Not Given Heparin Sodium (Porcine) (Heparin 1,000 Units/Ml) 6,000 unit IV EVERY HD PRN PRN Reason: FLUSH AFTER EACH USE Stop: 08/16/19 20:21 Hydralazine HCl (Apresoline) 10 mg IV Q6HP PRN PRN Reason: Titrate to SBP (MUST DEFINE) Stop: 08/16/19 11:16 Piperacillin/Tazobactam/Sod Chloride (Zosyn 2.25 Gm/50 Ml Ivpb) 2.25 gm in 50 mls @ 100 mls/hr IVPB Q12HR [facility]; Protocol Stop: 08/16/19 12:01 Last Admin: 07/18/19 10:06 Dose: 50 mls Albumin Human (Albumin 25%) 50 mls @ 100 mls/hr IV EVERY HD [facility] Stop: 08/16/19 21:01 Vancomycin HCl (Vancomycin 1 Gm/250 Ml Ns Ivpb) 1 gm in 250 mls @ 166.667 mls/ hr IVPB AFTER EACH DIALYSIS [facility] Stop: 08/17/19 11:01 Insulin Human Regular (Novolin -R) 0 unit SQ ACHS [facility]; Protocol Stop: 08/16/19 11:31 Last Admin: 07/18/19 16:30 Dose: Not Given Isosorbide Mononitrate (Imdur) 30 mg PO BID [facility] Stop: 08/16/19 21:01 Last Admin: 07/18/19 10:05 Dose: 30 mg Magnesium Hydroxide (Milk Of Magnesia) 30 ml PO DAILYPRN PRN PRN Reason: CONSTIPATION Stop: 08/16/19 11:00 Mannitol (Mannitol 12.5 Gm/50 Ml Vial) 12.5 gm IV EVERY HD PRN PRN Reason: Titrate to SBP (MUST DEFINE) Stop: 08/16/19 20:21 Ondansetron HCl (Zofran) 4 mg IV Q6HP PRN PRN Reason: NAUSEA / VOMITING Stop: 08/16/19 11:00 Sevelamer Carbonate (Renvela) 800 mg PO TIDWM [facility] Stop: 08/17/19 08:01 Last Admin: 07/18/19 17:12 Dose: 800 mg Sodium Chloride (Normal Saline Flush) 10 ml IV BID [facility] Stop: 08/16/19 21:01 Last Admin: 07/18/19 10:07 Dose: 10 ml Lab Results (last 24 hrs) 07/18/19 17:20: Hemoglobin A1c 5.8 07/18/19 17:20: Magnesium 2.8 H 07/18/19 16:25: POC Glucose 150 H 07/18/19 11:54: POC Glucose 133 H 07/18/19 09:28: POC Glucose 142 H 07/18/19 05:46: Sodium 138, Potassium 4.5, Chloride 96 L, Carbon Dioxide 31, BUN 67 H, Creatinine 12.40 H*, Estimated GFR 5 L, Glucose 122 H, Calcium 9.4, Phosphorus 7.2 H, Magnesium 2.7 H, Total Bilirubin 0.5, AST 9 L, ALT 14, Alkaline Phosphatase 83, Serum Total Protein 8.2, Albumin 3.4, Globulin 4.8 H, Albumin/Globulin Ratio 0.7 L 07/18/19 05:46: WBC 12.8 H, RBC 3.30 L, Hgb 9.5 L, Hct 29.6 L, MCV 89.6, MCH 28.9, MCHC 32.2, RDW 16.1 H, Plt Count 384, MPV 9.1, Neutrophils % 72.1, Lymphocytes % 16.7, Monocytes % 7.9, Eosinophils % 2.5, Basophils % 0.8, Absolute Neutrophils 9.2 H, Absolute Lymphocytes 2.1, Absolute Monocytes 1.0, Absolute Eosinophils 0.3, Absolute Basophils 0.1 07/18/19 04:50: Urine Color Yellow, Urine Appearance Clear, Urine pH 8.0 H, Ur Specific [place] 1.010, Glucose (UA)(Auto) Trace, Urine Ketones Negative, Urine Blood Negative, Urine Nitrite Negative, Urine Bilirubin Negative, Urine Urobilinogen 0.2, Ur Leukocyte Esterase Negative, Urine RBC <5, Urine WBC <5, Ur Squamous Epith Cells <5, Urine Bacteria <20, Urine Culture Reflexed Not needed, Urine Total Protein 2+ H Microbiology Results 07/17/19 11:50 Blood - Blood Aerobic Blood Culture - Preliminary No growth in 24 hours. 07/17/19 11:50 Blood - Blood Anaerobic Blood Culture - Preliminary No growth in 24 hours. 07/17/19 14:49 Other - Right Foot Gram Stain - Final 07/17/19 14:49 Other - Right Foot Culture & Sensitivity - Preliminary Assessment/ Plan: Nephrology. CPS stable without CP or SOB. No acute events overnight. Post-op for partial 5th ray amputation. Vitals, medications, blood work and imaging reviewed in the chart. General: Oriented x3, Cooperative HEENT: Atraumatic, Normocephalic Neck: Supple Respiratory: Clear to auscultation bilaterally Cardiovascular: Regular rate/rhythm Gastrointestinal: Soft and benign, Non-distended Musculoskeletal: No clubbing, No contractures Integumentary: No rashes, Skin lesion, Diabetic ulcer Neurological: Normal speech Blood work reviewed in the chart. Imagings Data: EXAM DESCRIPTION: RAD - Foot Right 3 View - 03/13/2019 6:54 am CLINICAL HISTORY: Right foot pain, soft tissue wound not further localized COMPARISON: None. FINDINGS: No fracture, dislocation or periosteal reaction. No erosive or destructive bone process identifiable. The site of the wound was not noted in history or on images. Dense arterial tree calcifications are present. No air or foreign body in the soft tissues. Hardware is in place in the distal tibia from prior fracture repair. IMPRESSION: No acute or destructive bone process. Conclusions/Impression: A/ ESRD on HD. HTN with CKD/ CHF. Diastolic CHF, chronic. DM II with CKD. Anemia in CKD. SIMEON/ Secondary HyperPTH. DM II with right foot ulcer. P/ Continue current POC and Medications. HD TIW. Next HD . Give Procrit. Start Vitamin D. Will increase Renvela as needed. Abx as ordered. Wound care as ordered. Follow up with podiatry. No NSAIDs. AM labs. Daily weight.
[2019-07-18] MEDS ORDERED: NA CHLORIDE 0.9% 250 ML ONE (21:57)
[2019-07-18] MEDS ORDERED: EPOETIN ALFA 20,000 UNIT/1 ML VIAL SQ SCH (22:00)
[2019-07-18] MEDS ORDERED: EPOETIN ALFA 10,000 UNIT/ML VIAL SQ ONE (23:45)
[2019-07-19] MEDS ORDERED: EPOETIN ALFA 10,000 UNIT/ML VIAL ONE (00:36)
[2019-07-19] MEDS: ALPRAZOLAM 0.25 MG TABLET PO PRN ×2 (00:49→21:43)
[2019-07-19] MEDS: carvediloL 25 MG TAB PO SCH ×2 (05:32→17:24)
[2019-07-19 06:05] LABS: Absolute Lymphocytes (CBC) 1.6 K/uL (0.7-4.9); Basophils % 0.9 % (0-1.3); Hematocrit 27.9 % (39.6-49.0); Lymphocytes % 12.6 % (15.3-44.8); MPV 8.9 fL (7.6-11.3); RBC Red Blood Cell Count 3.13 M/uL (4.33-5.43)
[2019-07-19 06:12] LABS: Potassium 4.6 mmol/L (3.5-5.1)
[2019-07-19] MEDS: INSULIN -REGULAR HUMAN 50 UNIT/0.5 ML ML SQ SCH ×4 (07:30→21:00)
--- NOTE | 2019-07-19 07:59 | OP ---
Surgeon: Ez Osborn Jr, DPM Preoperative Diagnosis: Right fifth metatarsal and fifth digit osteomyelitis. Postoperative Diagnosis: Right fifth metatarsal and fifth digit osteomyelitis. Procedure: Right partial fifth ray resection and bone biopsy. Pathology: Bone sent for gross. Anesthesia: TIVA with 20 cc of 1:1, 0.5% Marcaine and 1% lidocaine plain. Hemostasis: Pneumatic ankle tourniquet inflated to 250 mmHg. Estimated Blood Loss: Less than 20 cc. Materials: 3-0 nylon and a 1/4-inch Shmuel drain. Injectables: None. Complication: None. Procedure In Detail: Patient brought into [facility] operating room and placed on the OR in supine position. Patient placed under sedation by the anesthesiologist and 20 cc of 1:1, 0.5% Marcaine, 1% lidocaine plain were injected in local fashion in the right lower extremity. A well-pa dded pneumatic ankle tourniquet was applied to the right lower extremity. The patient was prepped an d draped in usual aseptic manner. Right lower extremity was exsanguinated utilizing Esmarch bandage. Pneumatic ankle tourniquet was inflated to 250 mmHg. Attention was directed to the distal aspect o f the right fifth metatarsal and fifth digit with some bone exposures identified at previous bone bio psy of the fifth digit and noted osteomyelitis. At this time, a linear incision with a racket incisi on noted distally was made excising the toe at the fifth metatarsophalangeal joint. Skin incision park perficially was carried straight to bone with disarticulation noted at this time. The head of the fi fth metatarsal was noted to be very soft and porous. The incision was extended proximally and utiliz ing an oscillating bone saw, the distal one-third of the fifth metatarsal was resected. The bowel wa s noted to be hard and viable at the resection area. At this time, a second cut was made, providing a more proximal bone biopsy for hopefully showing signs of clear margins. At this time, the wound wa s then irrigated with copious amounts of normal sterile saline. Reconstruction of the wound edges wa s performed and closure was obtained utilizing 3-0 nylon. Quarter-inch [place] drain was inserted to allow for fluid drainage and will be removed at bedside. Sterile dressing consisting of Xeroform, 4 x 4's, ABD pad, Kerlix, and an Shad wrap was applied to the right lower extremity. Pneumatic ankle t ourniquet was deflated with prompt hyperemic response being noted to the right lower extremity. The patient had tolerated the procedure and anesthesia well, was transferred from OR to recovery with vit al signs stable, neurovascular status intact. JORDANA/ELIZABETH Voice ID: [id number] Report ID: [id number]
[2019-07-19] MEDS: VITAMIN D 5,000 UNIT CAP PO SCH (09:30)
[2019-07-19] MEDS: CALCITROL 0.25 MCG CAP PO SCH (09:30)
[2019-07-19] MEDS: ISOSORBIDE MONO SR 30 MG TAB PO SCH ×2 (09:30→21:42)
[2019-07-19] MEDS: SEVELAMER CARBONATE 800 MG TABLET PO SCH ×3 (09:30→16:25)
[2019-07-19] MEDS: CLOPIDOGREL 75 MG TABLET PO SCH (09:30)
[2019-07-19] MEDS: ASPIRIN 81 MG CHEWABLE TABLET PO SCH (09:31)
[2019-07-19] MEDS: PIPER/TAZO/NS 2.25gm 2.25 GM/50 ML BAG IVPB SCH ×2 (09:31→21:42)
[2019-07-19] MEDS: FUROSEMIDE 40 MG TABLET PO SCH ×2 (09:31→16:25)
[2019-07-19] MEDS: HEPARIN 5000 UNIT/ML 1 ML VIAL SQ SCH ×2 (09:32→21:42)
--- NOTE | 2019-07-19 11:11 | P.PN ---
Subjective Date of Service: 07/19/19 Primary Care Provider: Forrest Chan Chief Complaint: right foot ulcer Subjective: Tolerating diet, Doing well Review of Systems 10-point ROS is otherwise unremarkable Physical Examination - Vital Signs Temperature: 98.3 F Blood Pressure: 131/60 Pulse: 88 Respirations: 20 Pulse Ox (%): 96 - Physical Exam General: Alert, In no apparent distress, Oriented x3 Cardiovascular: No edema, Normal pulses Capillary refill: <2 Seconds Musculoskeletal: No clubbing, No swelling, No contractures, No erythema, No tenderness, No warmth Integumentary: Other (right foot incision site is looking good. Skin edges well coapted with drain in place, no erythema, no purulence, no signs of infection) Neurological: Abnormal sensation - Studies Laboratory Data (last 24 hrs) 07/19/19 05:30: Sodium 138, Potassium 4.6, BUN 40 H D, Creatinine 8.98 H* D, Glucose 125 H 07/19/19 05:30: WBC 13.0 H, Hgb 9.1 L, Hct 27.9 L, Plt Count 320 07/18/19 17:20: Magnesium 2.8 H Microbiology Data (last 24 hrs): 07/17/19 14:49 Other - Right Foot Gram Stain - Final Assessment And Plan - Current Problems (Diagnosis) (1) Diabetic foot ulcer Current Visit: No Status: Acute - Plan I would like for the patient be in the hospital one more day as his WBC has increased slightly. Patient to remain nonweightbearing with leg elevated Plan to discharge in: Unknown
--- NOTE | 2019-07-19 18:00 | P.PN ---
Subjective Date of Service: 07/19/19 Primary Care Provider: Forrest Chan Chief Complaint: right foot ulcer Subjective: No new changes, Doing well Review of Systems General: Unremarkable Eyes: Unremarkable ENT: Unremarkable Respiratory: Unremarkable Cardiovascular: Unremarkable Gastrointestinal: Unremarkable Musculoskeletal: Foot Pain Integumentary: Lesions Neurological: Unremarkable Physical Examination - Vital Signs Temperature: 98.2 F Blood Pressure: 175/80 Pulse: 90 Respirations: 20 Pulse Ox (%): 98 - Physical Exam General: Alert, In no apparent distress, Oriented x3, Cooperative HEENT: Atraumatic, Normocephalic, PERRLA, Mucous membr. moist/pink Neck: Supple, 2+ carotid pulse no bruit, JVD not distended Respiratory: Clear to auscultation bilaterally, Normal air movement Cardiovascular: No edema, Regular rate/rhythm, Normal S1 S2 Gastrointestinal: Normal bowel sounds, Soft and benign, Non-distended, No ascites, No tenderness Musculoskeletal: No clubbing, No swelling, Other (surgical wound on the right foot appear to be dry with minimal discharge) Neurological: Normal gait, Normal strength at 5/5 x4 extr, Normal tone, Sensation intact - Studies Laboratory Data (last 24 hrs) 07/19/19 05:30: Sodium 138, Potassium 4.6, BUN 40 H D, Creatinine 8.98 H* D, Glucose 125 H 07/19/19 05:30: WBC 13.0 H, Hgb 9.1 L, Hct 27.9 L, Plt Count 320 Microbiology Data (last 24 hrs): 07/17/19 14:49 Other - Right Foot Gram Stain - Final Assessment And Plan - Plan Assessment and plans Patient was directly admitted for unhealing diabetic foot ulcer infection. He has a history of diabetes, hypertension, ESRD, and diabetic foot. He failed outpatient Surgical debridement and oral antibiotics. We started IV antibiotics including clindamycin and Zosyn empirically. Wound culture pending. Dr. Osborn performed amputation. I changed IV clindamycin to vanco. ID was consulted for abx choice. 1. Diabetic foot ulcer infection: Patient has a nonhealing ulcer for 1 month. He received debridement and and oral antibiotics. I started IV clindamycin-> vanco and Zosyn empirically. Wound culture grew strep and GNR. We continue Zosyn and stopped vanco. Blood culture neg. Dr. Slate performed amputation. ID was consulted. 2. ESRD: He has been on hemodialysis on Wednesday, , Wednesday. Dr. Chan was consulted. 3. DM: Started a sliding scale. A1c 5.8. 4. Hypertension: Added hydralazine IV as needed. On BB. Added Norvasc 5 mg daily 5. DVT ppx on heparin.
[2019-07-19] MEDS: AMLODIPINE 5 MG TAB PO SCH (18:09)
--- NOTE | 2019-07-19 19:08 | PN ---
Date of Progress Note: 07/19/2019 Subjective: Patient was seen and examined. He denies any complaints. Objective: Vital Signs: Have been reviewed and are stable. General: He appears in no acute distress. Lungs: Clear to auscultation. Abdomen: Soft, nontender. Extremities: Right leg in dressing was noted. Laboratory Data: Showing sodium of 138, potassium of 4.6, chloride of 100, bicarb of 31, BUN of 40 a nd creatinine of 8.98. CBC showing stable hemoglobin, hematocrit, and platelet count, WBC count of 1 3,000. Current Medications: Have been reviewed in detail. Impression: 1.End-stage renal disease, on dialysis. 2.Right lower foot infection secondary to diabetes. 3.Anemia secondary to end-stage renal disease. 4.Hypertension. 5.Type 2 diabetes, uncontrolled, with peripheral vascular disease. Plan: 1.Overall, the patient is doing okay. He is on Wednesday, , Wednesday schedule. Continue anti biotics and local wound care for diabetic foot infection. He is on vancomycin and Zosyn for right no w. Our culture results are pending. We will adjust antibiotics based on culture reports. 2.Anemia is currently stable. Continue Epogen with dialysis. 3.Hypertension: Continue current medications and adjust as needed. 4.The patient will plan for dialysis tomorrow per his regular schedule. Continue all other medications and plan of care. Antibiotics to be dosed post HD. VV/MODL Voice ID: [id number] Report ID: [id number]
[2019-07-20] MEDS: carvediloL 25 MG TAB PO SCH ×2 (05:51→17:02)
[2019-07-20 05:54] VITALS: BMI 29.3
--- NOTE | 2019-07-20 07:00 | P.PN ---
Subjective Date of Service: 07/20/19 Primary Care Provider: Forrest Chan Chief Complaint: right foot ulcer Subjective: Tolerating diet, Improving, Doing well Review of Systems 10-point ROS is otherwise unremarkable Physical Examination - Vital Signs Temperature: 98.9 F Blood Pressure: 154/76 Pulse: 84 Respirations: 16 Pulse Ox (%): 99 - Physical Exam General: Alert, In no apparent distress, Oriented x3 Cardiovascular: No edema, Normal pulses Capillary refill: <2 Seconds Musculoskeletal: No clubbing, No swelling, No contractures, No erythema, No tenderness, No warmth Integumentary: Other (Surgical site showing no signs of infection. Drain removed at bedside and wound closed with retention sutures. No purulence, no active bleeding, no wound dehiscence. ) Neurological: Abnormal sensation - Studies Microbiology Data (last 24 hrs): 07/17/19 14:49 Other - Right Foot Gram Stain - Final Assessment And Plan - Current Problems (Diagnosis) (1) Diabetic foot ulcer Current Visit: No Status: Acute Plan: Patient to remain nonweightbearing, no bathing right lower extremity. Patient to follow up in wound care 07/24/19 Patient can be d/c to home after dialysis today and antibiotics - Plan I would like for the patient be in the hospital one more day as his WBC has increased slightly. Patient to remain nonweightbearing with leg elevated
[2019-07-20] MEDS: INSULIN -REGULAR HUMAN 50 UNIT/0.5 ML ML SQ SCH ×3 (07:30→16:30)
[2019-07-20 08:04] LABS: Absolute Lymphocytes (CBC) 2.1 K/uL (0.7-4.9); Basophils % 1.3 % (0-1.3); Hematocrit 29.4 % (39.6-49.0); Lymphocytes % 18.8 % (15.3-44.8); MPV 8.8 fL (7.6-11.3)
[2019-07-20 08:07] LABS: Potassium 4.8 mmol/L (3.5-5.1)
[2019-07-20] MEDS: AMLODIPINE 5 MG TAB PO SCH (08:08)
[2019-07-20] MEDS: CALCITROL 0.25 MCG CAP PO SCH (08:09)
[2019-07-20] MEDS: FUROSEMIDE 40 MG TABLET PO SCH ×2 (08:09→17:01)
[2019-07-20] MEDS: SEVELAMER CARBONATE 800 MG TABLET PO SCH ×3 (08:09→17:01)
[2019-07-20] MEDS: ISOSORBIDE MONO SR 30 MG TAB PO SCH (08:10)
[2019-07-20] MEDS: CLOPIDOGREL 75 MG TABLET PO SCH (08:10)
[2019-07-20] MEDS: PIPER/TAZO/NS 2.25gm 2.25 GM/50 ML BAG IVPB SCH (08:10)
[2019-07-20] MEDS: VITAMIN D 5,000 UNIT CAP PO SCH (08:10)
[2019-07-20] MEDS: ASPIRIN 81 MG CHEWABLE TABLET PO SCH (08:10)
[2019-07-20] MEDS: HEPARIN 5000 UNIT/ML 1 ML VIAL SQ SCH (08:12)
--- NOTE | 2019-07-20 08:19 | CON ---
History Of Present Illness: Patient is a 59-year-old male consulted for right foot infection, diabet ic foot ulcer, status post amputation of the 5th toe and 5th metatarsal. Patient has significant his tory of diabetes mellitus, hypertension, end-stage renal disease, on hemodialysis. Patient has diabe tic foot ulcer, which was becoming necrotic and was yesterday amputated by involving the 5th toe and metatarsal bone. Patient denies any fevers, headache, nausea, vomiting, chest pain, abdominal pain, constipation, or diarrhea. Past Medical History: As per HPI. Social History: Nonsmoker, nondrinker. Family History: Noncontributory. Medications: Aspirin, furosemide, isosorbide mononitrate, Coreg, Plavix, Zosyn, and vancomycin. Allergies: NO KNOWN DRUG ALLERGIES. Review of Systems: A 10-point review was performed. Physical Examination: General: Patient lying in bed, not in any acute distress. Vital Signs: Temperature 98, pulse 88, respirations 20, blood pressure 131/60. Musculoskeletal: Examination of right foot shows no edema. Some swelling noted around the wound sit e with sutures in place. Wound size is about 7.5 cm in length with Jackson drain in place at the dis juve end of the wound with minimal bloody drainage on the dressing. Laboratory Data: Shows WBC 13,000, hemoglobin 9.1, platelets are 320. Chemistry shows sodium 138, p otassium 4.6, chloride 100, bicarb 31, BUN 40, creatinine 8.9, glucose is 125. Micro data, wound cul ture from the right foot is showing gram-negative rods. Sensitivity and specificity pending. Blood cultures, no growth for 24 hours. Assessment And Plan: Right diabetic foot ulcer and osteomyelitis, status post amputation of 5th toe and metatarsal. Patient is doing well with Shmuel drainage in place. Continue antibiotic, total co urse of 2 weeks. Can be switched to cefepime 1 g with dialysis depending on sensitivity. We will fo llow patient closely. Thank you Dr. Matos for consult. NF/MODL Voice ID: [id number] Report ID: [id number]
[2019-07-20 08:57] VITALS: O2SAT 97
[2019-07-20] MEDS ORDERED: ERTAPENEM SODIUM 1 GM VIAL IVPB ONE (09:15)
[2019-07-20] MEDS ORDERED: DOXYCYCLINE 100 MG CAP PO SCH (11:00)
--- NOTE | 2019-07-20 11:29 | P.DS ---
Admission Date: 07/17/19 Discharge Date: 07/21/19 Primary Care Provider: Forrest Chan Disposition: ROUTINE DISCHARGE Discharge Condition: GOOD Reason for Admission: right foot ulcer Consultations: Dr. Osborn and Dr. Meyers Brief History of Present Illness: This patient is a 59-year-old male who presented for unhealing right foot ulcer. He has a history of diabetes, hypertension, end-stage renal disease on hemodialysis, diabetic foot. He was not noticed to have ulcer on the right foot for the last month. He has been following Dr. osborn. He was given oral antibiotics. He underwent superficial debridement with partial amputation of 5th toe 2 week ago. He continues to experience ulcer with some discharge. The discharge is smelly. It is painful on ambulation. No fever or chills. No nausea or vomiting. No shortness of breath or chest pain. He was directly admitted to our service from Dr. Osborn's Office for diabetic fahad infection Hospital Course: This patient is a 59-year-old male who presented for unhealing right foot ulcer. He has a history of diabetes, hypertension, end-stage renal disease on hemodialysis, diabetic foot. He was not noticed to have ulcer on the right foot for the last month. He was treated with oral abx and debridement at outpatient. He continues to experience ulcer with some discharge. He was directly admitted and treated with IV vancomycin and Zosyn. Nephrology was consulted for hemodialysis. Dr. osborn was consulted and performed amputation of the right 5th toe. Patient is to be much better off her procedure. The wound appears to be clean and dry. Wound culture grew Kelsiella and Octrobacter. Antibiotics was switched to doxycycline and amoxicillin per sensitivity after discussing with pharmacist. He is getting much better. WBC has been trending down. Dr. Osborn agreed with that he can be discharged to home. Vital Signs/Physical Exam: Temp Pulse Resp BP Pulse Ox 97.4 F 86 20 182/84 H 97 07/20/19 08:00 07/20/19 08:09 07/20/19 08:00 07/20/19 08:09 07/20/19 08:00 General: Alert, In no apparent distress, Oriented x3, Cooperative HEENT: Atraumatic, Normocephalic, PERRLA Neck: Supple, 2+ carotid pulse no bruit, JVD not distended Respiratory: Clear to auscultation bilaterally, Normal air movement Cardiovascular: Normal pulses, Regular rate/rhythm, Normal S1 S2 Gastrointestinal: Normal bowel sounds, Soft and benign, Non-distended, No ascites, No tenderness Musculoskeletal: No clubbing, Other (S/P ampuatation. Surgical wound appears to be clean and dry without discharge) Integumentary: No rashes, No breakdown Neurological: Normal gait, Normal speech, Normal strength at 5/5 x4 extr, Normal tone, Sensation intact, Cranial nerves 3-12 intact, Normal reflexes 2+ Laboratory Data at Discharge: WBC 11.0 K/uL (4.3-10.9) H D 07/20/19 07:39 Hgb 9.8 g/dL (13.6-17.9) L 07/20/19 07:39 Hct 29.4 % (39.6-49.0) L 07/20/19 07:39 Plt Count 349 K/uL (152-406) 07/20/19 07:39 Sodium 139 mmol/L (136-145) 07/20/19 07:39 Potassium 4.8 mmol/L (3.5-5.1) 07/20/19 07:39 BUN 52 mg/dL (7-18) H 07/20/19 07:39 Creatinine 12.40 mg/dL (0.55-1.3) H* D 07/20/19 07:39 Glucose 126 mg/dL (74-106) H 07/20/19 07:39 Phosphorus 7.2 mg/dL (2.5-4.9) H 07/18/19 05:46 Magnesium 2.8 mg/dL (1.8-2.4) H 07/18/19 17:20 Total Bilirubin 0.5 mg/dL (0.2-1.0) 07/18/19 05:46 AST 9 U/L (15-37) L 07/18/19 05:46 ALT 14 U/L (12-78) 07/18/19 05:46 Alkaline Phosphatase 83 U/L (45-117) 07/18/19 05:46 Home Medications: Aspirin Chewable [Aspirin Chewable*] 1 tab PO DAILY 03/16/19 Furosemide [Lasix] 1 tab PO BID 03/16/19 Isosorbide Mononitrate [Isosorbide Mononitrate ER] 1 tab PO BID 03/16/19 carvediloL [Carvedilol] 1 tab PO BID 6AM 6PM 03/16/19 Clopidogrel Bisulfate [Plavix*] 75 mg PO DAILY 07/17/19 Sevelamer Carbonate [Renvela*] 1 tab PO TID 07/17/19 Amlodipine [Norvasc] 5 mg PO DAILY 30 Days #30 tab 07/20/19 Amoxicillin 500 mg PO DAILY #10 tablet 07/20/19 Calcitrol [Rocaltrol] 0.5 mcg PO DAILY 30 Days #60 cap 07/20/19 Cholecalciferol (Vitamin D3) [Vitamin D 5,000 Iu Cap] 5,000 unit PO DAILY 30 Days #30 cap 07/20/19 Doxycycline Hyclate 100 mg PO BID 10 Days #20 tablet 07/20/19 New Medications: Amlodipine [Norvasc] 5 mg PO DAILY 30 Days #30 tab Amoxicillin 500 mg PO DAILY #10 tablet Calcitrol [Rocaltrol] 0.5 mcg PO DAILY 30 Days #60 cap Cholecalciferol (Vitamin D3) [Vitamin D 5,000 Iu Cap] 5,000 unit PO DAILY 30 Days #30 cap Doxycycline Hyclate 100 mg PO BID 10 Days #20 tablet Patient Discharge Instructions: 1. Please follow Dr. Osborn as scheduled. 2. Please be compliant with wound care. 3. Please call ED or Dr. Osborn if having more redness, swelling, or pain. Diet: Renal Activity: Ad pradeep Followup: Forrest Chan DO [Primary Care Provider] - Ez Osborn JR DPM [ASSOCIATE-ACTIVE - CAN ADMIT] - Time spent managing pt's care (in minutes): 32
[2019-07-20 20:07] VITALS: BP 146/80; TEMP 97.1
--- NOTE | 2019-07-20 20:22 | PN ---
Subjective: Patient lying in bed. No new acute event. Objective: Vital Signs: Temperature 97.8, pulse 84, respirations 20, blood pressure 165/77. Shmuel dressing has been removed. No new acute event. Sutures in place. No fevers. Assessment/plan: Continue local wound care, status post amputation of right fifth toe and metatarsal . Continue supportive care and wound care. Keep leg elevated when possible. NF/MODL Voice ID: [id number] Report ID: [id number]
--- NOTE | 2019-07-20 22:15 | P.PN ---
Date of Service: 07/20/19 Vital Signs Temp Pulse Resp BP Pulse Ox 97.1 F 86 18 146/80 H 100 07/20/19 20:00 07/20/19 20:00 07/20/19 20:00 07/20/19 20:00 07/20/19 20:00 Lab Results (last 24 hrs) 07/20/19 19:50: POC Glucose 121 H 07/20/19 17:18: POC Glucose 129 H 07/20/19 10:56: POC Glucose 166 H 07/20/19 07:39: Sodium 139, Potassium 4.8, Chloride 98, Carbon Dioxide 31, BUN 52 H, Creatinine 12.40 H* D, Estimated GFR 5 L, Glucose 126 H, Calcium 9.4 07/20/19 07:39: WBC 11.0 H D, RBC 3.30 L, Hgb 9.8 L, Hct 29.4 L, MCV 89.1, MCH 29.6, MCHC 33.2, RDW 16.1 H, Plt Count 349, MPV 8.8, Neutrophils % 67.1, Lymphocytes % 18.8, Monocytes % 9.4, Eosinophils % 3.4, Basophils % 1.3, Absolute Neutrophils 7.4, Absolute Lymphocytes 2.1, Absolute Monocytes 1.0, Absolute Eosinophils 0.4, Absolute Basophils 0.1 07/20/19 07:26: POC Glucose 128 H Microbiology Results 07/17/19 14:49 Other - Right Foot Gram Stain - Final 07/17/19 14:49 Other - Right Foot Culture & Sensitivity - Final Klebsiella Oxytoca Citrobacter Koseri 07/17/19 11:50 Blood - Blood Aerobic Blood Culture - Preliminary No growth in 24 hours. 07/17/19 11:50 Blood - Blood Anaerobic Blood Culture - Preliminary No growth in 24 hours. Assessment/ Plan: Nephrology. CPS stable without CP or SOB. No acute events overnight. Feeling better. Vitals, medications, blood work and imaging reviewed in the chart. General: Oriented x3, Cooperative HEENT: Atraumatic, Normocephalic Neck: Supple Respiratory: Clear to auscultation bilaterally Cardiovascular: Regular rate/rhythm Gastrointestinal: Soft and benign, Non-distended Musculoskeletal: No clubbing, No contractures Integumentary: No rashes, Skin lesion, Diabetic ulcer Neurological: Normal speech Blood work reviewed in the chart. Imagings Data: EXAM DESCRIPTION: RAD - Foot Right 3 View - 03/13/2019 6:54 am CLINICAL HISTORY: Right foot pain, soft tissue wound not further localized COMPARISON: None. FINDINGS: No fracture, dislocation or periosteal reaction. No erosive or destructive bone process identifiable. The site of the wound was not noted in history or on images. Dense arterial tree calcifications are present. No air or foreign body in the soft tissues. Hardware is in place in the distal tibia from prior fracture repair. IMPRESSION: No acute or destructive bone process. Conclusions/Impression: A/ ESRD on HD. HTN with CKD/ CHF. Diastolic CHF, chronic. DM II with CKD. Anemia in CKD. SIMEON/ Secondary HyperPTH. DM II with right foot ulcer. P/ Continue current POC and Medications. HD TIW. Next HD today. Abx as ordered. Wound care as ordered. Follow up with podiatry. No NSAIDs. AM labs. Daily weight.
== END 2019-07-20 20:26 | disposition home or self-care (01) | DRG 617 ==
LOC: 2ND 09:51
PROVIDERS: ADMIT Internal Medicine; ATTEND Internal Medicine
PROC: 0Y6X0Z0 Detachment at Right 5th Toe, Complete, Open Approach (ICD-10-PCS; principal; 2019-07-18 07:30)
DX: E11.621 Type 2 diabetes mellitus with foot ulcer (principal); M86.171 Other acute osteomyelitis, right ankle and foot; I13.2 Hypertensive heart and chronic kidney disease with heart failure and with stage 5 chronic kidney disease, or end stage renal disease; I50.32 Chronic diastolic (congestive) heart failure; E11.22 Type 2 diabetes mellitus with diabetic chronic kidney disease; E11.51 Type 2 diabetes mellitus with diabetic peripheral angiopathy without gangrene; E11.69 Type 2 diabetes mellitus with other specified complication; N18.6 End stage renal disease; D63.8 Anemia in other chronic diseases classified elsewhere; N25.81 Secondary hyperparathyroidism of renal origin; Z99.2 Dependence on renal dialysis
CPT/HCPCS: 11042; 36415; 80048; 80053; 81003; 81015; 82947; 83036; 83735; 84100; 85025; 87040; 87070; 87077; 87186; 87205; 88304; 88305; 88311; 90935; 94760; J1644; J2250; J2704; J3010; J3370; J7030; J7040; Q4081; Q5105

== ENCOUNTER 2019-08-12 04:41 | Emergency (ER) | payer OTHER ==
--- OUTSIDE RECORDS SUMMARY | 2019-08-12 04:43 | XMS REPORT ---
:1960 [facility] Address [address] [place] [address] Dr. Aguila [address] [place] [address] Care Team Providers Name Role Phone Unavailable Unavailable Unavailable Problems This patient has no known problems. Allergies, Adverse Reactions, Alerts This patient has no known allergies or adverse reactions. Medications This patient has no known medications. Encounters Start End Encounter Admission Attending Care Care Encounter Date/Time Date/Time Type Type Clinicians Facility Department ID 2018-10-12 Inpatient [facility] [id number] 09:04:30 2019-01-27 2019-01-27 Outpatient [facility] [id number] 07:07:00 07:07:00 2019-01-26 2019-01-26 Outpatient [facility] [id number] 13:47:00 13:47:00 2018-11-11 2018-11-11 Outpatient [facility] [id number] 08:17:00 08:17:00 2018-10-05 2018-10-05 Outpatient [facility] [id number] 07:19:00 07:19:00
--- NOTE | 2019-08-12 06:38 | ER ---
Nurse's Notes [facility] Name: Toni Duncan Age: 59 yrs Sex: Male : 1960 Arrival Date: 08/12/2019 Time: 04:46 Bed 7 Private MD: Diagnosis: Hypoglycemia, unspecified Presentation: 08/11 04:47 Chief complaint: EMS states: "The patient's called EMS for having a low blood jd3 sugar. when we arrived his blood sugar was 32. we gave 150 ml of D10 and his sugar came up to 166. he states he is feeling better and was wanting to get home to get to dialysis today. he did mention that he had a recent amputation of one of his toes and was worried the rest of hist foot was a different color.". Coronavirus screen: The patient has NOT traveled to a country currently being monitored by the [facility] within the last 14 days. The patient has NOT had contact with any known and/or suspected case of coronavirus. Proceed with normal triage procedures. Ebola Screen: Patient negative for fever greater than or equal to 101.5 degrees Fahrenheit, and additional compatible Ebola Virus Disease symptoms. Initial Sepsis Screen: Does the patient meet any 2 criteria? No. Patient's initial sepsis screen is negative. Does the patient have a suspected source of infection? No. Patient's initial sepsis screen is negative. Risk Assessment: Do you want to hurt yourself or someone else? Patient reports no desire to harm self or others. 04:47 Method Of Arrival: EMS: [facility] jd3 04:47 Acuity: MIKE 3 jd3 04:56 Onset of symptoms was August 12, 2019. jd3 04:57 Care prior to arrival: IV initiated. 20 GA, in the right antecubital area. jd3 Historical: - Allergies: 04:54 No Known Allergies; jd3 - Home Meds: 04:54 aspirin 81 mg Oral chew 1 tab once daily [Active]; carvedilol 25 mg Oral tab 1 tab 2 jd3 times per day [Active]; furosemide 80 mg Oral tab 1 tab 2 times per day [Active]; Insulin: Regular Sub-Q [Active]; isosorbide mononitrate 30 mg Oral Tb24 1 tab twice a day [Active]; - PMHx: 04:54 Diabetes - NIDDM; dialyis; ESRD; Hypertension; jd3 - PSHx: 04:54 dialysis shunt to left arm; jd3 - Immunization history:: Adult Immunizations up to date. - Social history:: Smoking status: Patient denies any tobacco usage or history of. Screenin:56 Abuse screen: Denies threats or abuse. Nutritional screening: No deficits noted. jd3 Tuberculosis screening: No symptoms or risk factors identified. Fall Risk IV access (20 points). Ambulatory Aid- None/Bed Rest/Nurse Assist (0 pts). Gait- Normal/Bed Rest/Wheelchair (0 pts) Mental Status- Oriented to own ability (0 pts). Total Kelly Fall Scale indicates No Risk (0-24 pts). Assessment: 04:57 General: Appears in no apparent distress. comfortable, Behavior is calm, cooperative, jd3 appropriate for age. Pain: Denies pain. Neuro: Level of Consciousness is awake, alert, obeys commands, Oriented to person, place, time, situation. Cardiovascular: Denies chest pain, Capillary refill < 3 seconds Patient's skin is warm and dry. Respiratory: Airway is patent Respiratory effort is even, unlabored, Respiratory pattern is regular, symmetrical, Denies cough, shortness of breath. GI: No signs and/or symptoms were reported involving the gastrointestinal system. Abdomen is round non-distended, Patient currently denies abdominal pain, constipation, diarrhea, nausea, vomiting. : No signs and/or symptoms were reported regarding the genitourinary system. EENT: No signs and/or symptoms were reported regarding the EENT system. Derm: Skin is intact, Skin is dry, Skin is normal, Skin temperature is warm. Musculoskeletal: Amputation of Right fifth toenail. Circulation, motion, and sensation intact. Range of motion: intact in all extremities, right foot noted to be a darker color than the left foot. 06:19 Reassessment: Patient appears in no apparent distress at this time. Patient and/or jd3 family updated on plan of care and expected duration. Pain level reassessed. Patient is alert, oriented x 3, equal unlabored respirations, skin warm/dry/pink. Patient states feeling better. 06:41 Reassessment: Patient appears in no apparent distress at this time. Patient and/or jd3 family updated on plan of care and expected duration. Pain level reassessed. Patient is alert, oriented x 3, equal unlabored respirations, skin warm/dry/pink. orange juice, sandwich, and chips given. pt tolerated food. reported understanding of discharge instructions. even and steady gait upon discharge. Patient states feeling better. Vital Signs: 04:54 BP 189 / 101; Pulse 85; Resp 17 S; Temp 97.2(TE); Pulse Ox 99% on R/A; Weight 86.18 kg jd3 (R); Height 5 ft. 7 in. (170.18 cm) (R); Pain 0/10; 06:19 BP 161 / 96; Pulse 81; Resp 17 S; Pulse Ox 100% on R/A; jd3 04:54 Body Mass Index 29.76 (86.18 kg, 170.18 cm) jd3 ED Course: 04:46 Patient arrived in ED. jd3 04:46 Rd Winters RN is Primary Nurse. jd3 04:51 Sebastian Nj MD is Attending Physician. pkl 04:53 Triage completed. jd3 04:55 Arm band placed on. jd3 04:56 Patient has correct armband on for positive identification. Placed in gown. Bed in low jd3 position. Call light in reach. Side rails up X2. Adult w/ patient. 05:30 Maintain EMS IV. Dressing intact. Good blood return noted. Site clean \\T\\ dry. Gauge \\T\\ kerrie 3 site: 20 right forearm. 06:03 Titi Cloud NP is PHCP. pm1 06:03 Sebastian Nj MD is Attending Physician. pm1 06:43 No provider procedures requiring assistance completed. jd3 06:44 IV discontinued, intact, bleeding controlled, No redness/swelling at site. Pressure jd3 dressing applied. Administered Medications: No medications were administered Point of Care Testing: Blood Glucose: 04:54 Blood Glucose: 135 mg/dL; jd3 Ranges: Outcome: 06:37 Discharge ordered by . pm1 06:44 Discharged to home ambulatory, with family. jd3 06:44 Condition: stable 06:44 Discharge instructions given to patient, Instructed on discharge instructions, follow up and referral plans. Demonstrated understanding of instructions, follow-up care. 06:44 Patient left the ED. jd3 Signatures: Sebastian Nj MD MD pkTiti Alcantar NP [employer]IOLOG[employer] E[employer]IPMENT SERVICER pm1 Rd Winters RN RN jd3
--- NOTE | 2019-08-12 06:38 | EDPHYS ---
Physician Documentation [facility] Name: Toni Duncan Age: 59 yrs Sex: Male : 1960 Arrival Date: 08/12/2019 Time: 04:46 Bed 7 Private MD: ED Physician Sebastian Nj HPI: 08/11 06:15 This 59 yrs old Black Male presents to ER via EMS with complaints of hypoglycemia. pm1 06:15 EMS was called for low blood sugar. On EMS arrival his blood sugar was 32. Given D10 pm1 150 mL and his blood sugar increased. Patient last took insulin last night when he got home from work. Patient reports decreased intake yesterday. He is currently feeling better and has not eaten yet today. He wants to go home so that he can make dialysis treatment. Patient also reports recent amputation to his right 5th toe. No complaints of pain, redness, discharge, fever, dehiscence, or warmth. Has an appointment for removal of his sutures in a few days. Onset: The symptoms/episode began/occurred just prior to arrival. Severity of symptoms: Pain is currently a 0 / 10. The patient has experienced similar episodes in the past, a few times. Historical: - Allergies: 04:54 No Known Allergies; jd3 - Home Meds: 04:54 aspirin 81 mg Oral chew 1 tab once daily [Active]; carvedilol 25 mg Oral tab 1 tab 2 jd3 times per day [Active]; furosemide 80 mg Oral tab 1 tab 2 times per day [Active]; Insulin: Regular Sub-Q [Active]; isosorbide mononitrate 30 mg Oral Tb24 1 tab twice a day [Active]; - PMHx: 04:54 Diabetes - NIDDM; dialyis; ESRD; Hypertension; jd3 - PSHx: 04:54 dialysis shunt to left arm; jd3 - Immunization history:: Adult Immunizations up to date. - Social history:: Smoking status: Patient denies any tobacco usage or history of. ROS: 06:15 Constitutional: Negative for fever, chills, and weight loss, Neck: Negative for injury, pm1 pain, and swelling, Cardiovascular: Negative for chest pain, palpitations, and edema, Respiratory: Negative for shortness of breath, cough, wheezing, and pleuritic chest pain, Abdomen/GI: Negative for abdominal pain, nausea, vomiting, diarrhea, and constipation, Back: Negative for injury and pain, MS/Extremity: Negative for injury and deformity, Skin: Negative for injury, rash Neuro: Negative for headache, weakness, numbness, tingling, and seizure. 06:15 All other systems are negative. Exam: 06:15 Constitutional: This is a well developed, well nourished patient who is awake, alert, pm1 and in no acute distress. Head/Face: Normocephalic, atraumatic. Neck: Trachea midline, no thyromegaly or masses palpated, and no cervical lymphadenopathy. Supple, full range of motion without nuchal rigidity, or vertebral point tenderness. No Meningismus. Chest/axilla: Normal chest wall appearance and motion. Nontender with no deformity. No lesions are appreciated. Cardiovascular: Regular rate and rhythm with a normal S1 and S2. No gallops, murmurs, or rubs. Normal PMI, no JVD. No pulse deficits. Respiratory: Lungs have equal breath sounds bilaterally, clear to auscultation and percussion. No rales, rhonchi or wheezes noted. No increased work of breathing, no retractions or nasal flaring. Abdomen/GI: Soft, non-tender, with normal bowel sounds. No distension or tympany. No guarding or rebound. No evidence of tenderness throughout. Back: No spinal tenderness. No costovertebral tenderness. Full range of motion. Skin: Warm, dry with normal turgor. Normal color with no rashes, no lesions, and no evidence of cellulitis. MS/ Extremity: Pulses equal, no cyanosis. Neurovascular intact. Full, normal range of motion. 06:15 Neuro: Orientation: is normal, Mentation: is normal, Motor: is normal, moves all fours. Vital Signs: 04:54 BP 189 / 101; Pulse 85; Resp 17 S; Temp 97.2(TE); Pulse Ox 99% on R/A; Weight 86.18 kg jd3 (R); Height 5 ft. 7 in. (170.18 cm) (R); Pain 0/10; 06:19 BP 161 / 96; Pulse 81; Resp 17 S; Pulse Ox 100% on R/A; jd3 04:54 Body Mass Index 29.76 (86.18 kg, 170.18 cm) jd3 MDM: 04:51 Patient medically screened. pkl 06:15 ED course: Patient does not want any further work up in the ER because he feels fine pm1 and does not want to miss dialysis. Patient got a shot of his insulin after getting home late last night and he did not eat enough food. Recommended that he allow us to at least recheck his sugar prior to discharge. Patient has not been given any food between the time he arrived to the ER and I arrived to work. 06:15 ED course: Surgical wound to right 5th toe amputation without any signs of dehiscence pm1 or infection. Patient wanted to know why he had skin coloration differences to right and left leg during triage. Patient's right lower extremity skin slightly darker than left lower extremity. Patient reports that it has been like this for many years. Explained to him that this is likely due to decreased circulation and he reports that he has been told that he does have some peripheral vascular disease. Explained likely due to diabetes. Pulse 2+ to dorsalis pedis right foot. 06:32 Data reviewed: vital signs. Data interpreted: Pulse oximetry: on room air is 100 %. pm1 Interpretation: normal. 06:36 Counseling: I had a detailed discussion with the patient and/or guardian regarding: the pm1 historical points, exam findings, and any diagnostic results supporting the discharge/admit diagnosis, lab results, the need for outpatient follow up, to return to the emergency department if symptoms worsen or persist or if there are any questions or concerns that arise at home. 08/11 05:06 Order name: Glucose, Ancillary Testing; Complete Time: 06:05 [facility] 08/11 06:30 Order name: Glucose, Ancillary Testing; Complete Time: 06:31 [facility] 08/11 06:18 Order name: Diet Regular; Complete Time: 06:19 pm1 Administered Medications: No medications were administered Point of Care Testing: Blood Glucose: 04:54 Blood Glucose: 135 mg/dL; jd3 Ranges: Critical Glucose Levels:Adult <50 mg/dl or >400 mg/dl <40 mg/dl or >180 mg/dl Disposition: 08/12/19 06:37 Discharged to Home. Impression: Hypoglycemia, unspecified. - Condition is Stable. - Discharge Instructions: Hypoglycemia, Blood Glucose Monitoring, Adult. - Medication Reconciliation Form, Thank You Letter, Antibiotic Education, Prescription Opioid Use form. - Follow up: Emergency Department; When: As needed; Reason: Worsening of condition. Follow up: Private Physician; When: 2 - 3 days; Reason: Recheck today's complaints, Continuance of care, Re-evaluation by your physician. - Problem is new. - Symptoms have improved. Addendum: 08/27/2019 18:47 Co-signature as Attending Physician, Sebastian roa Signatures: Dispatcher [employer] EDMS Sebastian Nj MD MD pkl Titi Cloud BULB SORTER BULB SORTER pm1 Rd Winters RN RN jd3 Corrections: (The following items were deleted from the chart) 08/11 06:44 06:37 08/12/2019 06:37 Discharged to Home. Impression: Hypoglycemia, unspecified. jd3 Condition is Stable. Forms are Medication Reconciliation Form, Thank You Letter, Antibiotic Education, Prescription Opioid Use. Follow up: Emergency Department; When: As needed; Reason: Worsening of condition. Follow up: Private Physician; When: 2 - 3 days; Reason: Recheck today's complaints, Continuance of care, Re-evaluation by your physician. Problem is new. Symptoms have improved. pm1
[2019-08-12 07:05] VITALS: TEMP 97.2
[2019-08-12 07:06] VITALS: BP 161/96; O2SAT 100
== END 2019-08-12 06:44 | disposition home or self-care (01) ==
LOC: ER 04:41
DX: E11.649 Type 2 diabetes mellitus with hypoglycemia without coma (principal); E11.22 Type 2 diabetes mellitus with diabetic chronic kidney disease; E11.65 Type 2 diabetes mellitus with hyperglycemia; I12.0 Hypertensive chronic kidney disease with stage 5 chronic kidney disease or end stage renal disease; N18.6 End stage renal disease; Z79.82 Long term (current) use of aspirin; Z79.4 Long term (current) use of insulin; Z99.2 Dependence on renal dialysis
CPT/HCPCS: 82947; 99283

== ENCOUNTER 2020-05-07 | Emergency (ER) | payer OTHER ==
--- OUTSIDE RECORDS SUMMARY | 2020-05-07 11:09 | XMS REPORT | Continuity of Care Document ---
:1960 Author Organization [facility] Address [address] [place] [address] Dr. Aguila [address] [place] [address] Care Team Providers Name Role Phone Unavailable Unavailable Unavailable Problems This patient has no known problems. Allergies, Adverse Reactions, Alerts This patient has no known allergies or adverse reactions. Medications This patient has no known medications. Procedures This patient has no known procedures. Encounters Start End Encounter Admission Attending Care Care Encounter Source Date/Time Date/Time Type Type Clinicians Facility Department ID 2018-10-12 Inpatient [facility] [id number] MH H 09:04:30 2019-01-27 2019-01-27 Outpatient [facility] [id number] [facility] 07:07:00 07:07:00 2019-01-26 2019-01-26 [facility] [id number] MHH 13:47:00 13:47:00 2018-11-11 2018-11-11 Outpatient [facility] [id number] MHH 08:17:00 08:17:00 2018-10-05 2018-10-05 Outpatient [facility] [id number] MH 07:19:00 07:19:00 Results This patient has no known results.
--- NOTE | 2020-05-07 14:04 | ER ---
Nurse's Notes [facility] Name: Toni Duncan Age: 60 yrs Sex: Male : 1960 Arrival Date: 05/07/2020 Time: 11:08 Bed Waiting Private MD: Diagnosis: Presentation: 05/07 11:11 Chief complaint: Patient states: Reports he had HTN after HD and is unable to recall if sv he took his medications today. Stated that he completed HD and removed 4L. Denies CP and SOB. Family reports that HD staff told her that he seemed a little off but after talking to him and asking him questions he was back to normal. Pt is anxious in triage. Clonidine given about 30 mins [employer] by HD staff. Pt took all of his normal medication [employer] as well. Risk Assessment: Do you want to hurt yourself or someone else? Patient reports no desire to harm self or others. Onset of symptoms was May 07, 2020. 11:11 Method Of Arrival: Ambulatory sv 11:11 Acuity: MIKE 3 sv 11:14 Coronavirus screen: Client denies travel out of the [place] in the last 14 days. At this sv time, the client does not indicate any symptoms associated with coronavirus-19. Ebola Screen: No symptoms or risks identified at this time. 11:14 Initial Sepsis Screen: Does the patient meet any 2 criteria? HR > 90 bpm. No. Patient's sv initial sepsis screen is negative. Does the patient have a suspected source of infection? No. Patient's initial sepsis screen is negative. Triage Assessment: 11:15 General: Appears in no apparent distress. comfortable, well developed, Behavior is sv cooperative, appropriate for age, anxious. Pain: Denies pain. Neuro: Level of Consciousness is awake, alert, obeys commands, Oriented to person, place, time, situation, Moves all extremities. Full function Gait is steady. Respiratory: Respiratory effort is even, unlabored, Respiratory pattern is regular, symmetrical. Historical: - Allergies: 11:14 No Known Allergies; sv - PMHx: 11:14 Diabetes - NIDDM; dialyis; ESRD; Hypertension; sv - PSHx: 11:14 dialysis shunt to left arm; sv - Immunization history:: Flu vaccine is up to date. - Social history:: Smoking status: Patient denies any tobacco usage or history of. Assessment: 12:16 Reassessment: Patient appears in no apparent distress at this time. No changes from previously documented assessment. Vital Signs: 11:14 BP 215 / 108; Pulse 94; Resp 16; Temp 97.4; Pulse Ox 100% ; Weight 86.18 kg; Height 5 sv ft. 8 in. (172.72 cm); Pain 0/10; 12:13 BP 197 / 108; sv 11:14 Body Mass Index 28.89 (86.18 kg, 172.72 cm) ED Course: 11:08 Patient arrived in ED. mr 11:10 Arm band placed on. sv 11:14 Triage completed. 13:40 Patient's name was called from ER lobby. No response. 13:47 Gato Samson MD is Attending Physician. [facility] 13:50 Patient's name was called from ER lobby. No response. 14:03 Patient's name was called from ER lobby. No response. sv Administered Medications: No medications were administered Outcome: 14:03 Patient left the ED. sv Signatures: Mariana Britton RN RN Gato Samson MD MD cha Rivera, Mary mr Corrections: (The following items were deleted from the chart) 11:16 11:11 Chief complaint: Patient states: Reports he had HTN after HD and is unable to sv recall if he took his medications today. Stated that he completed HD and removed 4L. Denies CP and SOB. sv 11:18 11:11 Chief complaint: Patient states: Reports he had HTN after HD and is unable to sv recall if he took his medications today. Stated that he completed HD and removed 4L. Denies CP and SOB. Family reports that HD staff told her that he seemed a little off but after talking to him and asking him questions he was back to normal. Pt is anxious in triage. sv 11:18 11:11 Chief complaint: Patient states: Reports he had HTN after HD and is unable to sv recall if he took his medications today. Stated that he completed HD and removed 4L. Denies CP and SOB. Family reports that HD staff told her that he seemed a little off but after talking to him and asking him questions he was back to normal. Pt is anxious in triage. Clonidine given about 30 mins [employer] by HD staff. sv 11:18 11:14 86.18 kg; Height 5 ft. 8 in.; BMI: 28.8; sv sv
== END 2020-05-07 14:03 | disposition left against medical advice (07) ==
DX: Z53.21 Procedure and treatment not carried out due to patient leaving prior to being seen by health care provider (principal)
CPT/HCPCS: 99281

== ENCOUNTER 2021-11-24 22:19 | Emergency (ER) | payer OTHER ==
--- OUTSIDE RECORDS SUMMARY | 2021-11-24 22:29 | XMS REPORT | Continuity of Care Document ---
:1960 Author Organization [facility] t Address [address] [place] [address] Care Team Providers Name Role Phone PCP, DOES NOT HAVE A Primary Care Physician Unavailable Only, Db Test Attending Clinician Unavailable Pasha RN EMBEDDED Attending Clinician PASHA Attending Clinician Unavailable Doctor Unassigned, Name Attending Clinician Unavailable Payers Payer Name Policy Type Policy Number Effective Date Expiration Date S ource Problems Condition Condition Condition Status Onset Resolution Last Treating Co mments Source Name Details Category Date Date Treatment Clinician Date Sepsis Sepsis Disease Active Univers 4-30 ity of 00:00: [place] 00 Medical Branch Anemia of Anemia of Disease Active 2012-06 Uni vers chronic chronic 0-15 ity of kidney kidney 00:00: [place] failure failure 00 Medical Branch Metabolic Metabolic Disease Active 2012-06 Uni vers bone bone 0-15 ity of disease disease 00:00: [place] 00 Medical Branch ESRD (end ESRD (end Disease Active 2012-06 Uni vers stage stage 0-10 ity of renal renal 00:00: [place] disease) disease) 00 Medica l on on Branch dialysis dialysis Encounter Encounter Disease Active 2012-06 Uni vers regarding regarding 0-10 ity of vascular vascular 00:00: [place] access for access for 00 Vt dical dialysis dialysis Branch for ESRD for ESRD Hyperkalem Hyperkalem Disease Active U donald ia ia 3-22 ity of 00:00: [place] 00 Medical Branch Essential Essential Disease Active Uni vers hypertensi hypertensi 3-05 it y of on, on, 00:00: [place] malignant malignant [facility] Diabetes Diabetes Disease Active Unive rs mellitus mellitus 08-09 ity of 00:00: [place] Medical [place] Hypertensi Hypertensi Disease Active U nivers on on ity of [facility] Anxiety Anxiety Disease Active Univers ity of [facility] Allergies, Adverse Reactions, Alerts Allergy Allergy Status Severity Reaction(s) Onset Inactive Treating Comm ents Source Name Type Date Date Clinician NO KNOWN Drug Active Univers ALLERGIE Class ity of S [facility] Social History Social Habit Start Date Stop Date Quantity Comments Source Exposure to Not sure [facility] SARS-CoV-2 [facility]ly [facility] (event) [place] Alcohol intake 2013-10-24 2013-10-24 Current University of 00:00:00 00:00:00 non-drinker of [facility] alcohol [place] (finding) Tobacco use and 2010-08-09 2010-08-09 Never used Universit y of exposure 00:00:00 00:00:00 [facility] Sex Ass[birth year] At [birth year] Universit y of 00:00:00 00:00:00 [facility] Smoking Status Start Date Stop Date Source Never smoker [facility] Medications Ordered Filled Start Stop Current Ordering Indication Dosage Frequency Signature Comments Components Source Medication Medication Date Date Medication? Clinician (SIG) Name Name almita Yes 2400mg Take 3 Univ ers (RENVELA) 7-30 Tabs by ity of 800 mg 00:00: mouth 3 [place] tablet 00 (three) Medical times Branch daily with meals. sevelamer Yes 2400mg Take 3 Univ ers (RENVELA) 7-30 Tabs by ity of 800 mg 00:00: mouth 3 [place] tablet 00 (three) Medical times Branch daily with meals. sevelamer Yes 2400mg Take 3 Univ ers (RENVELA) 7-30 Tabs by ity of 800 mg 00:00: mouth 3 [place] tablet 00 (three) Medical times Branch daily with meals. carvedilol Yes 25mg Take 25 mg U nivers (COREG) 25 5-19 by mouth 2 ity of mg tablet 11:21: (two) [place] 43 times Medical daily with Branch meals. losartan Yes 50mg Take 50 mg Uni vers (COZAAR) 50 5-19 by mouth ity of mg tablet 11:21: daily. [address] Branch VITAMIN B 0 Yes Take by [facility] ers COMP 5-19 mouth. ity of W-C/FA/ZINC 11:21: [place] ([facility] 43 Medical 800 WITH Branch ZINC ORAL) carvedilol Yes 25mg Take 25 mg U nivers (COREG) 25 5-19 by mouth 2 ity of mg tablet 11:21: (two) [place] [id number] times Medical daily with Branch meals. losartan Yes 50mg Take 50 mg Uni vers (COZAAR) 50 5-19 by mouth ity of mg tablet 11:21: daily. [address] Branch VITAMIN B Yes Take by [facility] ers COMP 5-19 mouth. ity of W-C/FA/ZINC 11:21: [place] ([place] [address] Medical 800 WITH Branch ZINC ORAL) carvedilol Yes 25mg Take 25 mg U nivers (COREG) 25 5-19 by mouth 2 ity of mg tablet 11:21: (two) [place] [id number] times Medical daily with Branch meals. losartan Yes 50mg Take 50 mg Uni vers (COZAAR) 50 5-19 by mouth ity of mg tablet 11:21: daily. [address] Branch VITAMIN B 0 Yes Take by [facility] ers COMP 5-19 mouth. ity of W-C/FA/ZINC 11:21: [place] ([address] 800 WITH Branch ZINC ORAL) calcium Yes 1{tbl} Take 1 Tab Un ester carbonate 5-05 by mouth 3 ity of (TUMS) 200 10:35: (three[place] mg calcium 33 times Medical (500 mg) daily. Branch chewable tablet calcium 0 Yes 1{tbl} Take 1 Tab Un ester carbonate 5-05 by mouth 3 ity of (TUMS) 200 10:35: (three[place] mg calcium 33 times Medical (500 mg) daily. Branch chewable tablet calcium 0 Yes 1{tbl} Take 1 Tab Un ester carbonate 5-05 by mouth 3 ity of (TUMS) 200 10:35: (three[place] mg calcium 33 times Medical (500 mg) daily. Branch chewable tablet ceFAZolin Yes 1g post Unive rs (ANCEF) 1 5-04 hemodialys ity of gram IV 00:00: is to piggyback 00 complete a Medi liane total of Branch 11 days ceFAZolin Yes 1g post Unive rs (ANCEF) 1 5-04 hemodialys ity of gram IV 00:00: is to piggyback complete a Medi liane total of Branch 11 days ceFAZolin Yes 1g post Unive rs (ANCEF) 1 5-04 hemodialys ity of gram IV 00:00: is to piggyback 00 complete a Medi liane total of Branch 11 days hydralAZINE 2012-06 Yes 100mg Take 2 Uni vers (APRESOLINE 0-16 Tabs by ity o f ) 50 mg 00:00: mouth [place] tablet 00 every 8 Medical (eight) Branch hours. hydralAZINE 2012-06 Yes 100mg Take 2 Uni vers (APRESOLINE 0-16 Tabs by ity o f ) 50 mg 00:00: mouth [place] tablet 00 every 8 Medical (eight) Branch hours. hydralAZINE 2012-06 Yes 100mg Take 2 Uni vers (APRESOLINE 0-16 Tabs by ity o f ) 50 mg 00:00: mouth [place] tablet 00 every 8 Medical (eight) Branch hours. aspirin 81 2012-06 Yes 81mg Take 1 Tab U nivers mg chewable 0-12 by mouth ity of tablet 00:00: daily. Medical Branch ibuprofen 2012-06 Yes 400mg Take 1 Tab U nivers (MOTRIN) 0-12 by mouth 3 ity o f 400 mg 00:00: (three) [place] tablet 00 times Medical daily with Branch meals. aspirin 81 2012-06 Yes 81mg Take 1 Tab U nivers mg chewable 0-12 by mouth ity of tablet 00:00: daily. Medical Branch ibuprofen 2012-06 Yes 400mg Take 1 Tab U nivers (MOTRIN) 0-12 by mouth 3 ity o f 400 mg 00:00: (three) [place] tablet 00 times Medical daily with Branch meals. aspirin 81 2012-06 Yes 81mg Take 1 Tab U nivers mg chewable 0-12 by mouth ity of tablet 00:00: daily. Medical Branch ibuprofen 2012-06 Yes 400mg Take 1 Tab U nivers (MOTRIN) 0-12 by mouth 3 ity o f 400 mg 00:00: (three) [place] tablet 00 times Medical daily with Branch meals. pravastatin 2012-06 Yes [id number] 80mg Take 1 Tab Univers (PRAVACHOL) 0-10 by mouth ity of 80 mg 00:00: at [place] tablet 00 bedtime. Medical Branch pravastatin 2012-06 Yes [id number] 80mg Take 1 Tab Univers (PRAVACHOL) 0-10 by mouth ity of 80 mg 00:00: at [place] tablet 00 bedtime. Medical Branch pravastatin 2012-06 Yes [id number] 80mg Take 1 Tab Univers (PRAVACHOL) 0-10 by mouth ity of 80 mg 00:00: at [place] tablet 00 bedtime. Medical Branch isosorbide Yes 20mg Take 1 Tab U nivers dinitrate 1-17 by mouth 3 ity of (ISORDIL) 00:00: (three) [place] 20 mg 00 times Medical tablet daily. Branch isosorbide Yes 20mg Take 1 Tab U nivers dinitrate 1-17 by mouth 3 ity of (ISORDIL) 00:00: (three) [place] 20 mg 00 times Medical tablet daily. Branch isosorbide Yes 20mg Take 1 Tab U nivers dinitrate 1-17 by mouth 3 ity of (ISORDIL) 00:00: (three) [place] 20 mg 00 times Medical tablet daily. Branch insulin NPH Yes 15U inject 15 U nivers (NOVOLIN N) 3-10 Units ity of 100 unit/mL 00:00: [place] the [place] injection 00 skin every Medi liane morning Branch and evening. insulin NPH Yes 15U inject 15 U nivers (NOVOLIN N) 3-10 Units ity of 100 unit/mL 00:00: [place] the [place] injection 00 skin every Medi liane morning Branch and evening. insulin NPH Yes 15U inject 15 U nivers (NOVOLIN N) 3-10 Units ity of 100 unit/mL 00:00: [place] the [place] injection 00 skin every Medi liane morning Branch and evening. Immunizations Ordered Filled Immunization Date Status Comments [facility] e Immunization Name Name SARS-COV-2 COVID-19 2021-05-13 Completed Unive rsity of MODERNA BOOSTER 00:00:00 [facility] ical VACCINE Branch SARS-COV-2 COVID-19 2021-05-13 Completed Unive rsity of MODERNA BOOSTER 00:00:00 [facility] ical VACCINE Branch SARS-COV-2 COVID-19 2021-05-13 Completed Unive rsity of MODERNA BOOSTER 00:00:00 [facility] ical VACCINE Branch SARS-COV-2 COVID-19 2020-09-11 Completed Unive rsity of MODERNA VACCINE 00:00:00 [facility] ical Branch SARS-COV-2 COVID-19 2020-09-11 Completed Unive rsity of MODERNA VACCINE 00:00:00 [facility] Branch SARS-COV-2 COVID-19 2020-09-11 Completed Unive rsity of MODERNA VACCINE 00:00:00 [facility] Branch SARS-COV-2 COVID-19 2020-08-14 Completed Unive rsity of MODERNA VACCINE 00:00:00 [facility] Branch SARS-COV-2 COVID-19 2020-08-14 Completed Unive rsity of MODERNA VACCINE 00:00:00 [facility] Branch SARS-COV-2 COVID-19 2020-08-14 Completed Unive rsity of MODERNA VACCINE 00:00:00 [facility] TDAP 2013-10-23 Completed University of 00:00:00 [facility] TDAP 2013-10-23 Completed University of 00:00:00 [facility] TDAP 2013-10-23 Completed University of 00:00:00 [facility] Pneumococcal 2010-08-09 Completed University o f Polysaccharide, 00:00:00 [facility] PPS[facility] (PNEUMOVAX[facility] Branch Influenza Virus 2010-08-09 Completed Universit y of Vaccine 00:00:00 [facility] Pneumococcal 2010-08-09 Completed University o f Polysaccharide, 00:00:00 [facility] ical PPSV23 (PNEUMOVAX) Branch Influenza Virus 2010-08-09 Completed Universit y of Vaccine 00:00:00 [facility] Pneumococcal 2010-08-09 Completed University o f Polysaccharide, 00:00:00 [facility] PPSV23 (PNEUMOVAX) Branch Influenza Virus 2010-08-09 Completed Universit y of Vaccine 00:00:00 [facility] Procedures Procedure Date / Time Performed Performing Clinician Sour e ASSIGNMENT OF BENEFITS 2021-07-17 15:51:36 Doctor Unassigned, No [facility] Encounters Start End Encounter Admission Attending Care Care Encounter Source Date/Time Date/Time Type Type Clinicians Facility Department ID 2018-10-12 Inpatient [facility] [id number] [facility] 09:04:30 2021-07-17 2021-07-17 Laboratory Only, Ang Db Test [facility] [place] 1.2.8 [id number] [id number] Univers 09:45:00 10:00:00 Only Pasha [place] [facility] [id number] ity of [place] [id number] Gonzalo as ANNELIESE?BLEA [phone] Vt dical [address] MEDICAL OFFICE BUILDING 2021-07-17 2021-07-17 Outpatient R PASHA [facility] [id number] Univers 09:45:00 09:45:00 GENEVA ity [facility] 2021-07-17 2021-07-17 Outpatient R [facility] [id number] Univers 09:45:00 09:45:00 [id number] ity of [facility] 2021-07-17 2021-07-17 [facility] [id number] Univers 09:15:00 09:15:00 GENEVA ity [facility] 2021-07-17 2021-07-17 Letter Doctor JACQUES [id number] Univers 00:00:00 00:00:00 (Out) Unassigned, [place] [id number] ity of [place] [facility] [id number] Gonzalo as [phone] [facility] 044 Branch 2021-07-17 2021-07-17 Orders Doctor SAWYER [id number] Univers 00:00:00 00:00:00 Only Unassigned, [place] [id number] ity of [place] [facility] [id number] Gonzalo as [phone] [facility] 009 Branch 2019-01-27 2019-01-27 Outpatient [facility] CAR [id number] [facility] 07:07:00 07:07:00 2019-01-26 2019-01-26 Outpatient [facility] [id number] [facility] 13:47:00 13:47:00 2018-11-11 2018-11-11 Outpatient [facility] [id number] [facility] 08:17:00 08:17:00 2018-10-05 2018-10-05 Outpatient [facility] [id number] [facility] 07:19:00 07:19:00 Results This patient has no known results.
[2021-11-25] MEDS ORDERED: METOPROLOL TARTRATE 5 MG/5 ML INJ IV ONE (00:56)
[2021-11-25] MEDS ORDERED: cloNIDine HCL 0.1 MG TAB ONE ×2 (00:56→02:54)
[2021-11-25 01:08] LABS: Absolute Lymphocytes (CBC) 1.1 K/uL (0.7-4.9); Hematocrit 40.8 % (39.6-49.0); Lymphocytes % 9.5 % (15.3-44.8); MPV 8.9 fL (7.6-11.3); Protime INR 1.1; RBC Red Blood Cell Count 4.38 M/uL (4.33-5.43)
[2021-11-25 01:29] LABS: Potassium 4.9 mmol/L (3.5-5.1)
[2021-11-25 01:30] LABS: Albumin 3.9 g/dL (3.4-5.0); Bilirubin Total 0.6 mg/dL (0.2-1.0); Protein, Total 8.4 g/dL (6.4-8.2)
--- NOTE | 2021-11-25 02:26 | ER ---
Nurse's Notes [facility] Name: Toni Duncan Age: 61 yrs Sex: Male : 1960 Arrival Date: 11/24/2021 Time: 22:19 Bed 6 Private MD: Diagnosis: Hypertensive heart disease without heart failure Presentation: 11/24 22:57 Chief complaint: Patient states: Pt reports high blood pressure - c/o sweating and ld1 loopy. BG at home was 70. Coronavirus screen: At this time, the client does not indicate any symptoms associated with coronavirus-19. Ebola Screen: No symptoms or risks identified at this time. Initial Sepsis Screen: Does the patient meet any 2 criteria? No. Patient's initial sepsis screen is negative. Does the patient have a suspected source of infection? No. Patient's initial sepsis screen is negative. Risk Assessment: Do you want to hurt yourself or someone else? Patient reports no desire to harm self or others. Onset of symptoms was November 24, 2021. 22:57 Method Of Arrival: Ambulatory ld1 22:57 Acuity: MIKE 2 bb Triage Assessment: 22:58 General: Appears in no apparent distress. comfortable, Behavior is calm, cooperative, ld1 appropriate for age. Pain: Denies pain. EENT: No signs and/or symptoms were reported regarding the EENT system. Neuro: Level of Consciousness is awake, alert, obeys commands, Oriented to person, place, time, situation. Cardiovascular: Capillary refill < 3 seconds Patient's skin is warm and dry. Respiratory: Airway is patent Respiratory effort is even, unlabored. GI: Abdomen is round non-distended. : No signs and/or symptoms were reported regarding the genitourinary system. Derm: No signs and/or symptoms reported regarding the dermatologic system. Musculoskeletal: No signs and/or symptoms reported regarding the musculoskeletal system. Historical: - Allergies: 22:58 No Known Allergies; ld1 - PMHx: 22:58 Diabetes - NIDDM; dialyis; ESRD; Hypertension; ld1 - PSHx: 22:58 None; ld1 - Immunization history:: Adult Immunizations up to date, Client reports receiving the 2nd dose of the Covid vaccine. - Social history:: Smoking status: Patient denies any tobacco usage or history of. Patient/guardian denies using alcohol. Screenin/21 02:57 Abuse screen: Denies threats or abuse. Nutritional screening: No deficits noted. ll3 Tuberculosis screening: No symptoms or risk factors identified. Fall Risk No fall in past 12 months (0 pts). No secondary diagnosis (0 pts). IV access (20 points). Ambulatory Aid- None/Bed Rest/Nurse Assist (0 pts). Gait- Normal/Bed Rest/Wheelchair (0 pts) Mental Status- Oriented to own ability (0 pts). Total Kelly Fall Scale indicates No Risk (0-24 pts). Assessment: 00:00 General: Appears comfortable, Behavior is calm, cooperative. Pain: Denies pain. Neuro: ll3 Level of Consciousness is awake, alert, obeys commands, Oriented to person, place, time, situation. Respiratory: Respiratory effort is even, unlabored, Respiratory pattern is regular, symmetrical. Derm: Skin is pink, warm \T\ dry. Reports Diaphoresis. 01:06 Reassessment: Patient is alert, oriented x 3, equal unlabored respirations, skin bb warm/dry/pink. Dr Lomeli notified of pt's BP received new order give Clonidine 0.1mg as ordered and hold lopressor. Pt medicated see AUG. 02:30 Reassessment: Patient and/or family updated on plan of care and expected duration. Pain ll3 level reassessed. Patient is alert, oriented x 3, equal unlabored respirations, skin warm/dry/pink. Vital Signs: 11/24 22:57 BP 239 / 124; Pulse 81; Resp 18; Temp 98.3(TE); Pulse Ox 97% on R/A; Weight 86.18 kg; ld1 Height 5 ft. 7 in. (170.18 cm); Pain 0/10; 11/25 00:30 BP 210 / 109; Pulse 86; Resp 22; Pulse Ox 97% on R/A; ll3 01:00 BP 188 / 97; Pulse 86; Resp 18 S; Pulse Ox 96% on R/A; bb 01:30 BP 183 / 86; Pulse 82; Resp 18; Pulse Ox 99% on R/A; ll3 02:00 BP 198 / 85; Pulse 85; Resp 20; Pulse Ox 97% on R/A; ll3 11/24 22:57 Body Mass Index 29.76 (86.18 kg, 170.18 cm) ld1 ED Course: 11/24 22:19 Patient arrived in ED. ag3 22:57 Latoya Hills, RN is Primary Nurse. ld1 22:58 Triage completed. ld1 22:58 Arm band placed on right wrist. ld1 11/25 00:28 Mookie Lomeli MD is Attending Physician. kdr 00:50 Initial lab(s) drawn, by me, sent to lab. Inserted saline lock: 20 gauge in right bb antecubital area, using aseptic technique. Blood collected. 02:56 Patient has correct armband on for positive identification. Bed in low position. Call ll3 light in reach. Side rails up X 1. 02:56 No provider procedures requiring assistance completed. IV discontinued, intact, ll3 bleeding controlled, No redness/swelling at site. Pressure dressing applied. Administered Medications: 01:05 Drug: cloNIDine 0.1 mg Route: PO; bb 02:35 Follow up: Response: No adverse reaction ll3 02:55 Not Given (Patient Refused): cloNIDine 0.2 mg PO once ll3 02:56 Not Given (Does not meet parameters): Lopressor (metoprolol) 5 mg IVP every 5 minutes; ll3 Hold for SBP < 100 or HR < 60. x3 Medication: 02:57 VIS not applicable for this client. ll3 Outcome: 02:25 Discharge ordered by . kdr 02:56 Discharged to home ambulatory. ll3 02:56 Condition: stable 02:56 Discharge instructions given to patient, family, Instructed on discharge instructions, follow up and referral plans. Demonstrated understanding of instructions, follow-up care. 02:58 Patient left the ED. ll3 Signatures: Mookie Lomeli MD MD kdr Mariah Munroe RN RN Tiff Pierson ag3 Latoya Hills, RN RN ld1 Nicolas Larson RN RN ll3 Corrections: (The following items were deleted from the chart) 00:01 0620 22:57 Acuity: MIKE 3 ld1 bb 11/25 01:07 01:06 Reassessment: Patient is alert/active/playful, equal unlabored respirations, skin bb warm/dry/pink. Dr Lomeli notified of pt's BP received new order give Clonidine 0.1mg as ordered and hold lopressor. Pt medicated see MAR bb
--- NOTE | 2021-11-25 02:26 | EDPHYS ---
Physician Documentation [facility] Name: Toni Duncan Age: 61 yrs Sex: Male : 1960 Arrival Date: 11/24/2021 Time: 22:19 Bed 6 Private MD: ED Physician Mookie Lomeli HPI: 11/25 23:41 This 61 yrs old Black Male presents to ER via Ambulatory with complaints of High Blood kdr Pressure. 23:41 Patient states that they are concerned about her blood pressure being high. They have kdr also felt sweaty and a little bit dazed and foggy. A blood glucose check at home was noted to be 70.. Onset: The symptoms/episode began/occurred gradually, 1 week(s) ago. Severity of symptoms: At their worst the symptoms were mild moderate just prior to arrival, in the emergency department the symptoms are unchanged. The patient has experienced similar episodes in the past, a few times. The patient has not recently seen a physician. Historical: - Allergies: 11/24 22:58 No Known Allergies; ld1 - PMHx: 22:58 Diabetes - NIDDM; dialyis; ESRD; Hypertension; ld1 - PSHx: 22:58 None; ld1 - Immunization history:: Adult Immunizations up to date, Client reports receiving the 2nd dose of the Covid vaccine. - Social history:: Smoking status: Patient denies any tobacco usage or history of. Patient/guardian denies using alcohol. ROS: 11/25 23:41 Constitutional: Negative for fever, chills, and weight loss, Eyes: Negative for injury, kdr pain, redness, and discharge, ENT: Negative for injury, pain, and discharge, Neck: Negative for injury, pain, and swelling, Cardiovascular: Negative for chest pain, palpitations, and edema, Respiratory: Negative for shortness of breath, cough, wheezing, and pleuritic chest pain, Abdomen/GI: Negative for abdominal pain, nausea, vomiting, diarrhea, and constipation, Back: Negative for injury and pain, : Negative for injury, bleeding, discharge, and swelling, MS/Extremity: Negative for injury and deformity, Skin: Negative for injury, rash, and discoloration, Psych: Negative for depression, anxiety, suicide ideation, homicidal ideation, and hallucinations, Allergy/Immunology: Negative for hives, rash, and allergies, Endocrine: Negative for neck swelling, polydipsia, polyuria, polyphagia, and marked weight changes, Hematologic/Lymphatic: Negative for swollen nodes, abnormal bleeding, and unusual bruising. Neuro: Positive for dizziness, weakness. Exam: 23:41 Constitutional: This is a well developed, well nourished patient who is awake, alert, kdr and in no acute distress. Head/Face: Normocephalic, atraumatic. Eyes: Pupils equal round and reactive to light, extra-ocular motions intact. Lids and lashes normal. Conjunctiva and sclera are non-icteric and not injected. Cornea within normal limits. Periorbital areas with no swelling, redness, or edema. Neck: Trachea midline, no thyromegaly or masses palpated, and no cervical lymphadenopathy. Supple, full range of motion without nuchal rigidity, or vertebral point tenderness. No Meningismus. Chest/axilla: Normal chest wall appearance and motion. Nontender with no deformity. No lesions are appreciated. Cardiovascular: Regular rate and rhythm with a normal S1 and S2. No gallops, murmurs, or rubs. Normal PMI, no JVD. No pulse deficits. Respiratory: Lungs have equal breath sounds bilaterally, clear to auscultation and percussion. No rales, rhonchi or wheezes noted. No increased work of breathing, no retractions or nasal flaring. Abdomen/GI: Soft, non-tender, with normal bowel sounds. No distension or tympany. No guarding or rebound. No evidence of tenderness throughout. Back: No spinal tenderness. No costovertebral tenderness. Full range of motion. Skin: Warm, dry with normal turgor. Normal color with no rashes, no lesions, and no evidence of cellulitis. MS/ Extremity: Pulses equal, no cyanosis. Neurovascular intact. Full, normal range of motion. Neuro: Awake and alert, GCS 15, oriented to person, place, time, and situation. Cranial nerves II-XII grossly intact. Motor strength 5/5 in all extremities. Sensory grossly intact. Cerebellar exam normal. Normal gait. Psych: Awake, alert, with orientation to person, place and time. Behavior, mood, and affect are within normal limits. Vital Signs: 11/24 22:57 BP 239 / 124; Pulse 81; Resp 18; Temp 98.3(TE); Pulse Ox 97% on R/A; Weight 86.18 kg; ld1 Height 5 ft. 7 in. (170.18 cm); Pain 0/10; 11/25 00:30 BP 210 / 109; Pulse 86; Resp 22; Pulse Ox 97% on R/A; ll3 01:00 BP 188 / 97; Pulse 86; Resp 18 S; Pulse Ox 96% on R/A; bb 01:30 BP 183 / 86; Pulse 82; Resp 18; Pulse Ox 99% on R/A; ll3 02:00 BP 198 / 85; Pulse 85; Resp 20; Pulse Ox 97% on R/A; ll3 11/24 22:57 Body Mass Index 29.76 (86.18 kg, 170.18 cm) ld1 MDM: 02:25 Patient medically screened. kdr 23:41 Data reviewed: vital signs, lab test result(s), radiologic studies. Counseling: I had a kdr detailed discussion with the patient and/or guardian regarding: the historical points, exam findings, and any diagnostic results supporting the discharge/admit diagnosis, lab results, radiology results, the need for outpatient follow up. 11/25 00:42 Order name: CBC with Diff kdr 11/25 00:42 Order name: Comprehensive Metabolic Panel kdr 11/25 00:42 Order name: PT-INR kdr 11/25 01:42 Order name: VS Recheck; Complete Time: 02:12 kdr Administered Medications: 01:05 Drug: cloNIDine 0.1 mg Route: PO; bb 02:35 Follow up: Response: No adverse reaction ll3 02:55 Not Given (Patient Refused): cloNIDine 0.2 mg PO once ll3 02:56 Not Given (Does not meet parameters): Lopressor (metoprolol) 5 mg IVP every 5 minutes; ll3 Hold for SBP < 100 or HR < 60. x3 Disposition Summary: 11/25/21 02:25 Discharge Ordered Location: Home kdr Problem: an acute exacerbation kdr Symptoms: have improved kdr Condition: Stable kdr Diagnosis - Hypertensive heart disease without heart failure kdr Followup: kdr - With: Private Physician - When: 1 - 2 days - Reason: If symptoms return, Further diagnostic work-up, Recheck today's complaints, Continuance of care, Re-evaluation by your physician Discharge Instructions: - Discharge Summary Sheet kdr - Hypertension, Adult kdr - Hypertension, Adult, [id number] kdr Forms: - Medication Reconciliation Form kdr - Thank You Letter kdr Signatures: Dispatcher [employer] Mookie Cruz MD MD kdr Mariah Munroe RN RN bb Latoya Hills RN RN ld1 Nicolas Larson RN ll3
[2021-11-25 03:31] VITALS: TEMP 98.3
[2021-11-25 03:41] VITALS: BP 198/85; O2SAT 97
--- NOTE | 2021-11-26 07:23 | EKG ---
Test Date: 2021-11-25 Test Time: 00:32:01 Junior Loan Processor: JOANA MEASUREMENT RESULTS: Intervals: Rate: 84 CT: 254 QRSD: 84 QT: 378 QTc: 446 [place]: P: 33 CT: 254 QRS: 30 T: 40 INTERPRETIVE STATEMENTS: Sinus rhythm with 1st degree AV block Possible Left atrial enlargement Borderline ECG No previous ECG available for comparison Electronically Signed On 11-26-21 07:17:57 CDT by Eldon Chaney
== END 2021-11-25 02:58 | disposition home or self-care (01) ==
LOC: ER 22:19
DX: I13.11 Hypertensive heart and chronic kidney disease without heart failure, with stage 5 chronic kidney disease, or end stage renal disease (principal); Z99.2 Dependence on renal dialysis
CPT/HCPCS: 36415; 80053; 85025; 85610; 93005; 99284

== ENCOUNTER 2022-07-16 22:32 | Emergency (ER) | payer OTHER ==
--- OUTSIDE RECORDS SUMMARY | 2022-07-16 22:55 | XMS REPORT | Continuity of Care Document ---
:1960 Author Organization [facility] t Address [address] [place] [address] Care Team Providers Name Role Phone PCP, PATIENT DOES NOT HAVE A Primary Care Physician Unavaila ble Vaccine, Adc Family Medicine Attending Clinician Unavailable Cornelio Moise DO Attending Clinician CORNELIO MOISE Attending Clinician Unavailable Only, Ang Db Test Attending Clinician Unavailable Eileen Rossi Attending Clinician EILEEN PAK Attending Clinician Unavailable Doctor Unassigned, [place] Attending Clinician Unavailable Payers Payer Name Policy [...] Branch dialysis dialysis Encounter Encounter Disease Active 2013-1 Uni vers regarding regarding 0-10 ity of vascular vascular 00:00: [place] access for access for 00 Me dical dialysis dialysis Branch for ESRD for ESRD Hyperkalem Hyperkalem Disease Active U nivers ia ia 08-26 ity of 00:00: [place] 00 Medical Branch Essential Essential Disease Active Uni vers hypertensi hypertensi 3-05 it y of on, on, 00:00: [place] malignant malignant 00 [facility] Diabetes Diabetes Disease Recurre Univ ers mellitus mellitus nce 08-09 ity of 00:00: [place] 00 Medical Branch Hypertensi Hypertensi Disease Recurre Univers on on nce ity of [facility] Anxiety Anxiety Disease Recurre Univer s nce ity of [facility] Allergies, Adverse Reactions, Alerts Allergy Allergy Status Severity Reaction(s) Onset Inactive Treating Comm ents Source Name Type Date Date Clinician NO KNOWN Drug Active Univers ALLERGIE Class ity of S [facility] Social History Social Habit Start Date Stop Date Quantity Comments Source Exposure to Not sure [facility] SARS-CoV-2 [place] Medical (event) [place] Alcohol intake 2013-10-24 2013-10-24 Current University of 00:00:00 00:00:00 non-drinker of [facility] alcohol (finding) [place] Tobacco use and 2010-08-09 2010-08-09 Smokeless tobacco Un iversity of exposure 00:00:00 00:00:00 non-user [facility] Sex Ass[birth year] At [birth year] Universit y of 00:00:00 00:00:00 [facility] Smoking Status Start Date Stop Date Source Never smoked tobacco [facility] Medications Ordered Filled Start Stop Current Ordering Indication Dosage Frequency Signature Comments Components Source Medication Medication Date Date Medication? Clinician (SIG) Name Name sevelamer Yes 2400mg Take 3 Univ ers [...] Medical times Branch daily with meals. sevelamer 2014-0 Yes 2400mg Take 3 Univ ers (RENVELA) 7-30 Tabs by ity of 800 mg 00:00: mouth 3 [place] tablet 00 (three) Medical times Branch daily with meals. VITAMIN B 0 Yes Take by Unive rs COMP 5-19 mouth. ity of W-C/FA/ZINC 11:21: [place] ([facility] 43 Medical 800 WITH Branch ZINC ORAL) carvedilol 2013-0 Yes 25mg Take 25 mg U nivers (COREG) 25 5-19 by mouth 2 ity of mg tablet 11:21: (two) [place] [address] times Medical daily with Branch meals. losartan 0 Yes 50mg Take 50 mg Uni vers (COZAAR) 50 5-19 by mouth ity of mg tablet 11:21: daily. [place] [address] Medical Branch VITAMIN B Yes Take by Unive rs COMP 5-19 mouth. ity of W-C/FA/ZINC 11:21: [place] ([facility] Medical 800 WITH Branch ZINC ORAL) carvedilol 0 Yes 25mg Take 25 mg U nivers (COREG) 25 5-19 by mouth 2 ity of mg tablet 11:21: (two) [place] [address] times Medical daily with Branch meals. losartan 2013-0 Yes 50mg Take 50 mg Uni vers (COZAAR) 50 5-19 by mouth ity of mg tablet 11:21: daily. [place] [address] Medical Branch VITAMIN B 0 Yes Take by Unive rs COMP 5-19 mouth. ity of W-C/FA/ZINC 11:21: [place] ([facility] Medical 800 WITH Branch ZINC ORAL) carvedilol 2013-0 Yes 25mg Take 25 mg U nivers (COREG) 25 5-19 by mouth 2 ity of mg tablet 11:21: (two) [place] [address] times Medical daily with Branch meals. losartan 2013-0 Yes 50mg Take 50 mg Uni vers (COZAAR) 50 5-19 by mouth ity of mg tablet 11:21: daily. [place] [address] Medical Branch VITAMIN B 0 Yes Take by Unive rs COMP 5-19 mouth. ity of W-C/FA/ZINC 11:21: [place] ([facility] 43 Medical 800 WITH Branch ZINC ORAL) carvedilol Yes 25mg Take 25 mg U nivers (COREG) 25 5-19 by mouth 2 ity of mg tablet 11:21: (two) [place] 43 times Medical daily with Branch meals. losartan Yes 50mg Take 50 mg Uni vers (COZAAR) 50 5-19 by mouth ity of mg tablet 11:21: daily. [place] 43 Medical Branch calcium Yes 1{tbl} Take 1 Tab Un ester carbonate 5-05 by mouth 3 ity of (TUMS) 200 10:35: (three[place] mg calcium 33 times Medical (500 mg) daily. Branch chewable tablet calcium Yes 1{tbl} Take 1 Tab Un ester carbonate 5-05 by mouth 3 ity of (TUMS) 200 10:35: (three[place] mg calcium 33 times Medical (500 mg) daily. Branch chewable tablet calcium Yes 1{tbl} Take 1 Tab Un ester carbonate 5-05 by mouth 3 ity of (TUMS) 200 10:35: (three[place] mg calcium 33 times Medical (500 mg) daily. Branch chewable tablet calcium Yes 1{tbl} Take 1 Tab Un ester carbonate 5-05 by mouth 3 ity of (TUMS) 200 10:35: (three[place] mg calcium 33 times Medical (500 mg) daily. Branch chewable tablet ceFAZolin Yes 1g post Unive rs (ANCEF) 1 5-04 hemodialys ity of gram IV 00:00: is to [place] piggy complete a Medi ilane total of Branch 11 days ceFAZolin Yes 1g post Unive rs (ANCEF) 1 -04 hemodialys ity of gram IV 00:00: is to [place] piggyback complete a Medi liane total of Branch 11 days ceFAZolin Yes 1g post Unive rs (ANCEF) 1 5-04 hemodialys ity of gram IV 00:00: is to [place] piggyback complete a Medi liane total of Branch 11 days ceFAZolin Yes 1g post Unive rs (ANCEF) 1 5-04 hemodialys ity of gram IV 00:00: is to [place] piggyback 00 complete a Medi liane total [...] by mouth ity of tablet 00:00: daily. [place] [facility] Branch ibuprofen 2012-06 Yes 400mg Take 1 Tab U nivers (MOTRIN) 0-12 by mouth 3 ity o f 400 mg 00:00: (three) [place] tablet 00 times Medical daily with Branch meals. aspirin 81 2012-06 Yes 81mg Take 1 Tab U nivers mg chewable 0-12 by mouth ity of tablet 00:00: daily. [facility] ibuprofen 2012-06 Yes 400mg Take 1 Tab U nivers (MOTRIN) 0-12 by mouth 3 ity o f 400 mg 00:00: (three) [place] tablet 00 times Medical daily with Branch meals. aspirin 81 2012-06 Yes 81mg Take 1 Tab U nivers mg chewable 0-12 by mouth ity of tablet 00:00: daily. [place] [facility] Branch ibuprofen 2012-06 Yes 400mg Take 1 Tab U nivers (MOTRIN) 0-12 by mouth 3 ity o f 400 mg 00:00: (three) [place] tablet 00 times Medical daily with Branch meals. aspirin 81 2012-06 Yes 81mg Take 1 Tab U nivers mg chewable 0-12 by mouth ity of tablet 00:00: daily. [place] [facility] ibuprofen 2012-06 Yes 400mg Take 1 Tab U nivers (MOTRIN) 0-12 by mouth 3 ity o f 400 mg 00:00: (three) [place] tablet 00 times Medical daily with Branch meals. pravastatin 2012-06 Yes [id number] 80mg Take 1 Tab Univers (PRAVACHOL) 0-10 by mouth ity of 80 mg 00:00: at [place] tablet 00 bedtime. Medical Branch pravastatin 2012-06 Yes [id number] 80mg Take 1 Tab Univers (PRAVACHOL) 0-10 by mouth ity of 80 mg 00:00: at [place] tablet 00 bedtime. Medical Branch pravastatin 2012-06 Yes [id number] 80mg Take 1 Tab Univers (PRAVACHOL) 0-10 by mouth ity of 80 mg 00:00: at [place] tablet 00 bedtime. Medical Branch pravastatin 2012-06 Yes [id number] 80mg Take 1 Tab Univers (PRAVACHOL) 0-10 [...] Filled Immunization Date Status Comments [facility] e Immunization Name Name SARS-COV-2 COVID-19 2021-12-17 Completed Unive rsity of MODERNA 0.25ML 00:00:00 [place] Medi liane BOOSTER VACCINE Branch SARS-COV-2 COVID-19 2021-05-13 Completed Unive rsity of MODERNA 0.25ML 00:00:00 [place] Medi liane BOOSTER VACCINE Branch SARS-COV-2 COVID-19 2021-05-13 Completed Unive rsity of MODERNA BOOSTER 00:00:00 [place] Med ical VACCINE Branch SARS-COV-2 COVID-19 2021-05-13 Completed Unive rsity of MODERNA BOOSTER 00:00:00 [place] Med ical VACCINE Branch SARS-COV-2 COVID-19 2021-05-13 Completed Unive rsity of MODERNA BOOSTER 00:00:00 [place] Med ical VACCINE Branch SARS-COV-2 COVID-19 2020-09-11 Completed Unive rsity of MODERNA VACCINE 00:00:00 [place] Med ical Branch SARS-COV-2 COVID-19 2020-09-11 Completed Unive rsity of MODERNA VACCINE 00:00:00 [place] Med ical Branch SARS-COV-2 COVID-19 2020-09-11 Completed Unive rsity of MODERNA VACCINE 00:00:00 [place] Med ical Branch SARS-COV-2 COVID-19 2020-09-11 Completed Unive rsity of MODERNA VACCINE 00:00:00 [place] Med ical Branch SARS-COV-2 COVID-19 2020-08-14 Completed Unive rsity of MODERNA VACCINE 00:00:00 [place] Med ical Branch SARS-COV-2 COVID-19 2020-08-14 Completed Unive rsity of MODERNA VACCINE 00:00:00 [place] Med ical Branch SARS-COV-2 COVID-19 2020-08-14 Completed Unive rsity of MODERNA VACCINE 00:00:00 [facility] SARS-COV-2 COVID-19 2020-08-14 Completed Unive rsity of MODERNA VACCINE 00:00:00 [facility] TDAP 2013-10-23 Completed University of 00:00:00 [facility] TDAP 2013-10-23 Completed University of 00:00:00 [facility] TDAP 2013-10-23 Completed University of 00:00:00 [facility] TDAP 2013-10-23 Completed University of 00:00:00 [facility] Pneumococcal 2010-08-09 Completed University o f Polysaccharide, 00:00:00 [facility] ical PPSV23 (PNEUMOVAX) Branch Influenza Virus 2010-08-09 Completed Universit y of Vaccine 00:00:00 [facility] Pneumococcal 2010-08-09 Completed University o f Polysaccharide, 00:00:00 [facility] ical PPSV23 (PNEUMOVAX) Branch Influenza Virus 2010-08-09 Completed Universit y of Vaccine 00:00:00 [facility] Pneumococcal 2010-08-09 Completed University o f Polysaccharide, 00:00:00 [facility] ical PPSV23 (PNEUMOVAX) Branch Influenza Virus 2010-08-09 Completed Universit y of Vaccine 00:00:00 [facility] Pneumococcal 2010-08-09 Completed University o f Polysaccharide, 00:00:00 [facility] PPSV23 (PNEUMOVAX) Branch Influenza Virus 2010-08-09 Completed Universit y of Vaccine 00:00:00 [facility] Procedures Procedure Date / Time Performed Performing Clinician [facility] e SARS-COV-2 COVID-19 2021-12-17 18:43:07 [facility]igned, [facility] BOOSTER,0.25ML,IM (MODERNA) ASSIGNMENT OF BENEFITS 2021-07-17 15:51:36 Doctor Unassigned, No [facility] Encounters Start End Encounter Admission Attending Care Care Encounter Source Date/Time Date/Time Type Type Clinicians Facility Department ID 2018-10-12 Inpatient [facility] [id number] [facility] 09:04:30 2021-12-17 2021-12-17 Imm/Inj Vaccine, Adc Family Medicine [facility] [id number] Univers 14:00:00 14:10:00 Visit FaustoCornelio John Paul GALLO [id number] ity of [facility] [id number] [id number] [place] abramadolph MISTY 044 Branch BUILDING 2021-12-17 2021-12-17 Outpatient R FAUSTO [facility] [id number] Univers 14:00:00 14:00:00 CORNELIO adithya [facility] 2021-07-17 2021-07-17 Laboratory Only, Ang Db Test [facility] 1.2.8 [id number] [id number] Univers 09:45:00 10:00:00 Only Pasha [facility] [id number] ity [facility] [id number] Gonzalo as ANNELIESE?BLEA [phone] [place] abramadolph [facility] [address] [place] MEDICAL OFFICE [facility] 2021-07-17 2021-07-17 Outpatient R PASHA [facility] [id number] Univers 09:45:00 [facility]:45:[facility] 2021-07-17 [facility] [id number] Univers 09:15:00 09:15:[facility]-17 2021-07-17 Letter Doctor SAWYER [id number] Univers 00:00:00 00:00:00 (Out) Unassigned, [place] [id number] ity of [place] [facility] [id number] Gonzalo as [phone] [facility] 044 [place] 2021-07-17 2021-07-17 Orders Doctor SAWYER [id number] Univers 00:00:00 00:00:00 Only Unassigned, CORBY [id number] ity of [place] [id number] Gonzalo as [id number] [facility] 009 [place] 2019-01-27 2019-01-27 Outpatient [facility] CAR [id number] [facility] 07:07:00 07:07:00 2019-01-26 2019-01-26 Outpatient [facility] [id number] [facility] 13:47:00 13:47:00 2018-11-11 2018-11-11 Outpatient [facility] CAR [id number] [facility] 08:17:00 08:17:00 2018-10-05 2018-10-05 Outpatient [facility] [id number] [facility] 07:19:00 07:19:00 Results This patient has no known results.
--- NOTE | 2022-07-17 00:55 | ER ---
Nurse's Notes [facility] Name: Toni Duncan Age: 62 yrs Sex: Male : 1960 Arrival Date: 07/16/2022 Time: 22:33 Bed 4 Private MD: Diagnosis: Essential (primary) hypertension;Hypertension secondary to other renal disorders Presentation: 07/16 22:51 Chief complaint: Patient states: high blood pressure off and on all day reports kl systolic BP 200 at dialysis states bp 160/80 [employer] denies other symptoms. Coronavirus screen: Vaccine status: Patient reports receiving the 2nd dose of the covid vaccine. Ebola Screen: Patient negative for fever greater than or equal to 101.5 degrees Fahrenheit, and additional compatible Ebola Virus Disease symptoms. Initial Sepsis Screen: Does the patient meet any 2 criteria? No. Patient's initial sepsis screen is negative. Does the patient have a suspected source of infection? No. Patient's initial sepsis screen is negative. Risk Assessment: Do you want to hurt yourself or someone else? Patient reports no desire to harm self or others. 22:51 Method Of Arrival: Ambulatory kl 22:51 Acuity: MIKE 3 kl Triage Assessment: 22:54 General: Appears in no apparent distress. Behavior is calm, cooperative. Pain: Denies kl pain. Historical: - PMHx: 22:53 Diabetes - NIDDM; dialyis; ESRD; Hypertension; kl - Immunization history:: Adult Immunizations up to date. - Social history:: Smoking status: Patient denies any tobacco usage or history of. - Family history:: not pertinent. - Hospitalizations: : No recent hospitalization is reported. Screenin/10 00:00 [facility] ED Fall Risk Assessment (Adult) History of falling in the last 3 months, jb4 including since admission No falls in past 3 months (0 pts) Confusion or Disorientation No (0 pts) Impaired Gait Yes (1 pt) Score/Fall Risk Level 0 - 2 = Low Risk Oriented to surroundings, Maintained a safe environment. Abuse screen: Denies threats or abuse. Nutritional screening: No deficits noted. Tuberculosis screening: No symptoms or risk factors identified. Assessment: 07/16 23:00 General: Appears in no apparent distress. comfortable, Behavior is calm, cooperative, jb4 appropriate for age. Pain: Denies pain. Neuro: Level of Consciousness is awake, alert, obeys commands, Oriented to person, place, time, situation. Cardiovascular: Patient's skin is warm and dry. Respiratory: Airway is patent Respiratory effort is even, unlabored, Respiratory pattern is regular, symmetrical. GI: No signs and/or symptoms were reported involving the gastrointestinal system. : No signs and/or symptoms were reported regarding the genitourinary system. EENT: No signs and/or symptoms were reported regarding the EENT system. Derm: Skin is intact, Skin is dry, Skin is normal, Skin temperature is warm. Musculoskeletal: Circulation, motion, and sensation intact. Range of motion: intact in all extremities. 07/17 00:00 Reassessment: Patient appears in no apparent distress at this time. Patient and/or jb4 family updated on plan of care and expected duration. Pain level reassessed. Patient is alert, oriented x 3, equal unlabored respirations, skin warm/dry/pink. 01:19 Reassessment: Patient appears in no apparent distress at this time. Patient and/or jb4 family updated on plan of care and expected duration. Pain level reassessed. Patient is alert, oriented x 3, equal unlabored respirations, skin warm/dry/pink. Vital Signs: 07/16 22:51 BP 212 / 101; Pulse 91; Resp 18; Temp 97.5; Pulse Ox 99% on R/A; Weight 81.65 kg; kl Height 5 ft. 8 in. (172.72 cm) (R); Pain 0/10; 07/17 00:00 BP 170 / 87; Pulse 92; Resp 16; Pulse Ox 100% on R/A; jb4 00:30 BP 170 / 84; Pulse 90; Resp 18; Pulse Ox 100% ; vc1 07/16 22:51 Body Mass Index 27.37 (81.65 kg, 172.72 cm) ED Course: 07/16 22:33 Patient arrived in ED. jj6 22:43 Soto Vásquez MD is Attending Physician. rn 22:53 Triage completed. 23:17 Miguel Sharma, RN is Primary Nurse. jb4 07/17 00:00 Patient has correct armband on for positive identification. Bed in low position. Call jb4 light in reach. Side rails up X 1. 00:00 No provider procedures requiring assistance completed. Patient did not have IV access jb4 during this emergency room visit. Administered Medications: No medications were administered Medication: 01:19 VIS not applicable for this client. jb4 Outcome: 00:54 Discharge ordered by . rn 01:05 Discharged to home ambulatory. jb4 01:05 Condition: stable 01:05 Discharge instructions given to patient, Instructed on discharge instructions, follow up and referral plans. Demonstrated understanding of instructions, follow-up care. 01:21 Patient left the ED. jb4 Signatures: Criss Leiva, RN Soto Werner MD MD rn Bryson, James, RN RN jb4 Connie Bender jj6 Stefany Gunn RN RN vc1
--- NOTE | 2022-07-17 00:55 | EDPHYS ---
Physician Documentation [facility] Name: Toni Duncan Age: 62 yrs Sex: Male : 1960 Arrival Date: 07/16/2022 Time: 22:33 Bed 4 Private MD: ED Physician Soto Vásquez HPI: 07/17 00:50 This 62 yrs old Black Male presents to ER via Ambulatory with complaints of High Blood rn Pressure. 00:50 The patient has elevated blood pressure and discovered this at home. Onset: The rn symptoms/episode began/occurred at an unknown time. Modifying factors: The symptoms are alleviated by prescription meds. Associated signs and symptoms: Pertinent negatives: chest pain, dizziness, dyspnea, headache, lightheadedness, nausea, visual changes, vomiting, weakness. Severity of symptoms: At its worst the blood pressure was moderate, in the emergency department the blood pressure is improved. The patient has experienced similar episodes in the past. The patient has been recently seen by a physician:. Pt reports just had dialysis today, took an extra 5 pounds off, dialysis doctor told him to expect high BP because of that, took BP at home and was high, 200/90s. Denies chest pain/sob/abd pain/focal neuro complaints. Asymptomatic. Took his home BP medication and BP improved. . Historical: - PMHx: 07/16 22:53 Diabetes - NIDDM; dialyis; ESRD; Hypertension; kl - Immunization history:: Adult Immunizations up to date. - Social history:: Smoking status: Patient denies any tobacco usage or history of. - Family history:: not pertinent. - Hospitalizations: : No recent hospitalization is reported. ROS: 07/17 00:50 Constitutional: Negative for fever, chills, and weight loss, Eyes: Negative for injury, rn pain, redness, and discharge, ENT: Negative for injury, pain, and discharge, Cardiovascular: Negative for chest pain, palpitations, and edema, Respiratory: Negative for shortness of breath, cough, wheezing, and pleuritic chest pain, Abdomen/GI: Negative for abdominal pain, nausea, vomiting, diarrhea, and constipation, Back: Negative for injury and pain, MS/Extremity: Negative for injury and deformity, Skin: Negative for injury, rash, and discoloration, Neuro: Negative for headache, weakness, numbness, tingling, and seizure. Exam: 00:50 Constitutional: This is a well developed, well nourished patient who is awake, alert, rn and in no acute distress. Head/Face: Normocephalic, atraumatic. Eyes: Pupils equal round and reactive to light, extra-ocular motions intact. Lids and lashes normal. Conjunctiva and sclera are non-icteric and not injected. Cornea within normal limits. Periorbital areas with no swelling, redness, or edema. Cardiovascular: Regular rate and rhythm. No pulse deficits. Respiratory: No increased work of breathing, no retractions or nasal flaring. Abdomen/GI: Soft, non-tender Skin: Warm, dry MS/ Extremity: Pulses equal, no cyanosis. Neuro: Awake and alert, GCS 15, oriented to person, place, time, and situation. Cranial nerves II-XII grossly intact. Motor strength 5/5 in all extremities. Sensory grossly intact. Cerebellar exam normal. Normal gait. 05:02 ECG was reviewed by the Attending Physician. rn Vital Signs: 07/16 22:51 BP 212 / 101; Pulse 91; Resp 18; Temp 97.5; Pulse Ox 99% on R/A; Weight 81.65 kg; kl Height 5 ft. 8 in. (172.72 cm) (R); Pain 0/10; 07/17 00:00 BP 170 / 87; Pulse 92; Resp 16; Pulse Ox 100% on R/A; jb4 00:30 BP 170 / 84; Pulse 90; Resp 18; Pulse Ox 100% ; vc1 07/16 22:51 Body Mass Index 27.37 (81.65 kg, 172.72 cm) kl MDM: 07/16 22:43 Patient medically screened. rn 07/17 00:50 Differential diagnosis: Malignant HTN, asymptomatic HTN, HTN of CKD. Data reviewed: rn vital signs, nurses notes, and as a result, I will discharge patient. Counseling: I had a detailed discussion with the patient and/or guardian regarding: the historical points, exam findings, and any diagnostic results supporting the discharge/admit diagnosis, the need for outpatient follow up, to return to the emergency department if symptoms worsen or persist or if there are any questions or concerns that arise at home. Special discussion: I discussed with the patient/guardian in detail that at this point there is no indication for admission to the hospital. It is understood, however, that if the symptoms persist or worsen the patient needs to return immediately for re-evaluation. Based on the history and exam findings, there is no indication for further emergent testing or inpatient evaluation. I discussed with the patient/guardian the need to see the primary care provider for further evaluation of the symptoms. ED course: BP improved without intervention, normal neuro exam, essentially asymptomatic HTN at this point. Will dc home with pcp f/u and return precautions.. 07/16 22: Order name: EKG; Complete Time: rn 07/16 22: Order name: EKG - Nurse/Tech; Complete Time: : rn EC:02 Rate is 89 beats/min. Rhythm is regular. QRS [place] is Normal. [place] interval is normal. QRS rn interval is normal. QT interval is normal. No Q waves. T waves are Normal. No ST changes noted. Clinical impression: 1st degree heart block. Interpreted by me. Reviewed by me. Administered Medications: No medications were administered Disposition Summary: 07/17/22 00:54 Discharge Ordered Location: Home rn Problem: chronic rn Symptoms: have improved rn Condition: Stable rn Diagnosis - Essential (primary) hypertension rn - Hypertension secondary to other renal disorders rn Followup: rn - With: Private Physician - When: As needed - Reason: Recheck today's complaints, Re-evaluation by your physician Discharge Instructions: - Discharge Summary Sheet rn - Hypertension, Adult rn - Managing Your Hypertension rn Forms: - Medication Reconciliation Form rn - Thank You Letter rn - Antibiotic chief of internal medicine - Prescription Opioid Use rn Signatures: Criss Leiva RN Soto Werner MD MD rn
[2022-07-17 02:37] VITALS: TEMP 97.5
[2022-07-17 02:38] VITALS: O2SAT 100
[2022-07-17 02:39] VITALS: BP 170/84
== END 2022-07-17 01:21 | disposition home or self-care (01) ==
LOC: ER 22:32
DX: I15.1 Hypertension secondary to other renal disorders (principal); I10 Essential (primary) hypertension; E11.22 Type 2 diabetes mellitus with diabetic chronic kidney disease; N18.6 End stage renal disease; Z99.2 Dependence on renal dialysis
CPT/HCPCS: 93005; 99281

== ENCOUNTER 2023-09-14 08:48 | Emergency (ER) | payer OTHER ==
--- OUTSIDE RECORDS SUMMARY | 2023-09-14 08:53 | XMS REPORT | Continuity of Care Document ---
Author Name Unknown Address [address] [facility] [address] [place] [address] [facility] thconnect Address [address] [facility] [place] [address] Care Team Providers Care Machine Finisher Name Role Phone Pcp, Patient Does Not Have A Primary Care Physic bethany VALDEZ CHAVEZ Attending Clinician Unavailable EDEL ESCALANTE Attending Clinician Unavailable EDEL ESCALANTE Attending Clinician Unavailable Valdez Chavez MD Attending Clinician [phone] Doctor Unassigned, [place] Attending Clinician U afshin Pittman MD, Sarai Aguilar Attending Clinician [phone] Zaid BAPTISTE, Inder Owens Attending Clinician [phone] Karl ZHOU, Kamille Tejada Attending Clinician Unavail able MEREDITH CONLEY Attending Clinician Unavaila ble Provider, [facility] Attending Clinician Unavailable Evert Posada RN Attending Clinician Unavailabl e Only, [facility] Test Attending Clinician Unavailabl e Unknown, Attending Attending Clinician Unavailab BUTCH [place] III Attending Clinician Unavailabl e Vaccine, [facility] Attending Clinician Unavailable Cornelio Lambert DO Attending Clinician [phone] CORNELIO LAMBERT Attending Clinician Unavail able Juanjo HEADLEYP, Eileen Attending Clinician EILEEN PAK Attending Clinician Unavailable Payers Payer Name Policy Type Policy Number Effective Date Expirati on Date Source Problems Condition Name Condition Details Condition Category Status Onset Date Resolution Date Last Treatment Date Treating Clinician Comments Source Chronic heart failure with preserved ejection fraction Chronic heart failure with preserved ejection fraction Disease Active 07-13 00:00: 00 [facility] Coronary artery disease involving tribal coronary artery of tribal heart without angina pectoris Coronary artery disease involving tribal coronary artery of tribal heart without angina pectoris Disease Active 07-13 00:00: 00 [facility] PAD (periphera l artery disease) PAD (periphera l artery disease) Disease Active 07-13 00:00: 00 [facility] Tachycardi a Tachycardi a Disease Active 07-13 00:00: 00 [facility] Hyperlipid emia, unspecifie d hyperlipid emia type Hyperlipid emia, unspecifie d hyperlipid emia type Disease Active 07-13 00:00: 00 [facility] Sepsis Sepsis Disease Active 10-04 00:00: 00 [facility] Anemia of chronic kidney failure Anemia of chronic kidney failure Disease Active 2012-06 00:00: 00 [facility] Metabolic bone disease Metabolic bone disease Disease Active 2012-06 00:00: 00 [facility] ESRD (end stage renal disease) on dialysis ESRD (end stage renal disease) on dialysis Disease Active 2012-06 00:00: 00 [facility] Encounter regarding vascular access for dialysis for ESRD Encounter regarding vascular access for dialysis for ESRD Disease Active 2012-06 00:00: 00 [facility] Hyperkalem ia Hyperkalem ia Disease Active 08-26 00:00: 00 [facility] Essential hypertensi on, malignant Essential hypertensi on, malignant Disease Active 08-09 00:00: 00 [facility] Diabetes mellitus Diabetes mellitus Disease Recurre nce 08-09 00:00: 00 [facility] Hypertensi on Hypertensi on Disease Recurre nce [facility] Anxiety Anxiety Disease Recurre nce [facility] Allergies, Adverse Reactions, Alerts Allergy Name Allergy Type Status Severity Reaction(s) Onset Date Inactive Date Treating Clinician Comments Source NO KNOWN ALLERGIE S Drug Class Active [facility] Social History Social Habit Start Date Stop Date Quantity Comments [facility] 2023-07-13 00:00:00 2023-07-13 00:00:00 [facility] Exposure to SARS-CoV-2 (event) 2022-07-13 00:00:00 2022-07-23 17:26:00 Not sure [facility] Alcohol intake 2013-10-24 00:00:00 2013-10-24 00:00:00 Current non-drinker of alcohol (finding) [facility] Tobacco use and exposure 2010-08-09 00:00:00 2010-08-09 00:00:00 Smokeless tobacco non-user [facility] Sex Assigned At 1960 00:00:00 1960 00:00:00 [facility] Smoking Status Start Date Stop Date Source Never smoked tobacco [facility] Medications Ordered Medication Name Filled Medication Name Start Date Stop Date Current Medication? Ordering Clinician Indication Dosage Frequency Signature (SIG) Comments Components Source atorvastati n 40 mg tablet 07-13 14:40: 59 07-13 00:00 :00 No 40mg Take 1 tablet by mouth at bedtime. [facility] furosemide 80 mg tablet 07-13 14:32: 33 Yes 80mg Take 1 tablet by mouth every morning and evening. [facility] doxazosin 2 mg tablet 07-13 14:32: 33 Yes 2mg Take 1 tablet by mouth in the morning. [facility] amitriptyli ne 50 mg tablet 07-13 14:32: 33 Yes 50mg Take 1 tablet by mouth at bedtime. [facility] clopidogreL 75 mg tablet 07-13 14:32: 27 Yes 75mg Take 1 tablet by mouth in the morning. [facility] SERTraline 25 mg tablet 07-13 14:32: 27 Yes 25mg Take 1 tablet by mouth in the morning. [facility] calcium carbonate (TUMS) 200 mg calcium (500 mg) chewable tablet 07-13 14:31: 26 Yes 1{tbl} Take 1 tablet by mouth in the morning and 1 tablet at noon and 1 tablet in the evening. [facility] losartan (COZAAR) 50 mg tablet 07-13 14:31: 26 Yes 50mg Take 1 tablet by mouth in the morning. [facility] VITAMIN B COMP W-C/FA/ZINC (DIALYVITE 800 WITH ZINC ORAL) 07-13 14:31: 26 Yes Take by mouth. [facility] isosorbide mononitrate 30 mg 24 hr tablet 07-13 14:31: 26 Yes 30mg Take 1 tablet by mouth in the morning and 1 tablet in the evening. [facility] atenoloL 25 mg tablet 07-13 14:31: 26 Yes 25mg Take 1 tablet by mouth at bedtime. [facility] carvedilol (COREG) 25 mg tablet 07-13 14:29: 43 07-13 00:00 :00 No 25mg Take 25 mg by mouth 2 (two) times daily with meals. [facility] atorvastati n 80 mg tablet 07-13 00:00: 00 Yes [id number] 80mg Take 1 tablet by mouth at bedtime. [facility] sevelamer (RENVELA) 800 mg tablet 01-03 00:00: 00 Yes 2400mg Take 3 Tabs by mouth 3 (three) times daily with meals. [facility] VITAMIN B COMP W-C/FA/ZINC (DIALYVITE 800 WITH ZINC ORAL) 10-23 11:21: 43 Yes Take by mouth. [facility] carvedilol (COREG) 25 mg tablet 10-23 11:21: 43 Yes 25mg Take 25 mg by mouth 2 (two) times daily with meals. [facility] losartan (COZAAR) 50 mg tablet 10-23 11:21: 43 Yes 50mg Take 50 mg by mouth daily. [facility] calcium carbonate (TUMS) 200 mg calcium (500 mg) chewable tablet 10-09 10:35: 33 Yes 1{tbl} Take 1 Tab by mouth 3 (three) times daily. [facility] ceFAZolin (ANCEF) 1 gram IV piggyback 10-08 00:00: 00 Yes 1g post hemodialys is to complete a total of [address] [facility] hydralAZINE (APRESOLINE ) 50 mg tablet 2012-06 00:00: 00 07-13 00:00 :00 No 100mg Take 2 Tabs by mouth every 8 (eight) hours. [facility] aspirin 81 mg chewable tablet 2012-06 00:00: 00 Yes 81mg Take 1 Tab by mouth daily. [facility] ibuprofen (MOTRIN) 400 mg tablet 2012-06 00:00: 00 Yes 400mg Take 1 Tab by mouth 3 (three) times daily with meals. [facility] pravastatin (PRAVACHOL) 80 mg tablet 2012-06 00:00: 00 07-13 00:00 :00 No [id number] 80mg Take 1 Tab by mouth at bedtime. [facility] isosorbide dinitrate (ISORDIL) 20 mg tablet 06-23 00:00: 00 07-13 00:00 :00 No 20mg Take 1 Tab by mouth 3 (three) times daily. [facility] insulin NPH (NOVOLIN N) 100 unit/mL injection 08-14 00:00: 00 Yes 15U inject 15 Units under the skin every morning and evening. [facility] Immunizations Ordered Immunization Name Filled Immunization Name Date Status Comments Source SARS-COV-2 COVID-19 MODERNA 0.25ML BOOSTER VACCINE 2021-12-17 00:00:00 Completed [facility] SARS-COV-2 COVID-19 MODERNA 0.25ML BOOSTER VACCINE 2021-12-17 00:00:00 Completed [facility] SARS-COV-2 COVID-19 MODERNA 0.25ML BOOSTER VACCINE 2021-12-17 00:00:00 Completed [facility] SARS-COV-2 COVID-19 MODERNA 0.25ML BOOSTER VACCINE 2021-12-17 00:00:00 Completed [facility] SARS-COV-2 COVID-19 MODERNA 0.25ML BOOSTER VACCINE 2021-12-17 00:00:00 Completed [facility] SARS-COV-2 COVID-19 MODERNA 0.25ML BOOSTER VACCINE 2021-12-17 00:00:00 Completed [facility] SARS-COV-2 COVID-19 MODERNA 0.25ML BOOSTER VACCINE 2021-12-17 00:00:00 Completed [facility] SARS-COV-2 COVID-19 MODERNA 0.25ML BOOSTER VACCINE 2021-12-17 00:00:00 Completed [facility] SARS-COV-2 COVID-19 MODERNA 0.25ML BOOSTER VACCINE 2021-12-17 00:00:00 Completed [facility] SARS-COV-2 COVID-19 MODERNA 0.25ML BOOSTER VACCINE 2021-12-17 00:00:00 Completed [facility] SARS-COV-2 COVID-19 MODERNA 0.25ML BOOSTER VACCINE 2021-12-17 00:00:00 Completed [facility] SARS-COV-2 COVID-19 MODERNA 0.25ML BOOSTER VACCINE 2021-12-17 00:00:00 Completed [facility] SARS-COV-2 COVID-19 MODERNA 0.25ML BOOSTER VACCINE 2021-12-17 00:00:00 Completed [facility] SARS-COV-2 COVID-19 MODERNA 0.25ML BOOSTER VACCINE 2021-12-17 00:00:00 Completed [facility] SARS-COV-2 COVID-19 MODERNA 0.25ML BOOSTER VACCINE 2021-05-13 00:00:00 Completed [facility] SARS-COV-2 COVID-19 MODERNA 0.25ML BOOSTER VACCINE 2021-05-13 00:00:00 Completed [facility] SARS-COV-2 COVID-19 MODERNA 0.25ML BOOSTER VACCINE 2021-05-13 00:00:00 Completed [facility] SARS-COV-2 COVID-19 MODERNA 0.25ML BOOSTER VACCINE 2021-05-13 00:00:00 Completed [facility] SARS-COV-2 COVID-19 MODERNA 0.25ML BOOSTER VACCINE 2021-05-13 00:00:00 Completed [facility] SARS-COV-2 COVID-19 MODERNA 0.25ML BOOSTER VACCINE 2021-05-13 00:00:00 Completed [facility] SARS-COV-2 COVID-19 MODERNA 0.25ML BOOSTER VACCINE 2021-05-13 00:00:00 Completed [facility] SARS-COV-2 COVID-19 MODERNA 0.25ML BOOSTER VACCINE 2021-05-13 00:00:00 Completed [facility] SARS-COV-2 COVID-19 MODERNA 0.25ML BOOSTER VACCINE 2021-05-13 00:00:00 Completed [facility] SARS-COV-2 COVID-19 MODERNA 0.25ML BOOSTER VACCINE 2021-05-13 00:00:00 Completed [facility] SARS-COV-2 COVID-19 MODERNA 0.25ML BOOSTER VACCINE 2021-05-13 00:00:00 Completed [facility] SARS-COV-2 COVID-19 MODERNA 0.25ML BOOSTER VACCINE 2021-05-13 00:00:00 Completed [facility] SARS-COV-2 COVID-19 MODERNA 0.25ML BOOSTER VACCINE 2021-05-13 00:00:00 Completed [facility] SARS-COV-2 COVID-19 MODERNA BOOSTER VACCINE 2021-05-13 00:00:00 Completed [facility] SARS-COV-2 COVID-19 MODERNA 0.25ML BOOSTER VACCINE 2021-05-13 00:00:00 Completed [facility] SARS-COV-2 COVID-19 MODERNA BOOSTER VACCINE 2021-05-13 00:00:00 Completed [facility] SARS-COV-2 COVID-19 MODERNA BOOSTER VACCINE 2021-05-13 00:00:00 Completed [facility] SARS-COV-2 COVID-19 MODERNA VACCINE 2020-09-11 00:00:00 Completed [facility] SARS-COV-2 COVID-19 MODERNA 12+ YRS VACCINE 2020-09-11 00:00:00 Completed [facility] SARS-COV-2 COVID-19 MODERNA 12+ YRS VACCINE 2020-09-11 00:00:00 Completed [facility] SARS-COV-2 COVID-19 MODERNA 12+ YRS VACCINE 2020-09-11 00:00:00 Completed [facility] SARS-COV-2 COVID-19 MODERNA 12+ YRS VACCINE 2020-09-11 00:00:00 Completed [facility] SARS-COV-2 COVID-19 MODERNA 12+ YRS VACCINE 2020-09-11 00:00:00 Completed [facility] SARS-COV-2 COVID-19 MODERNA 12+ YRS VACCINE 2020-09-11 00:00:00 Completed [facility] SARS-COV-2 COVID-19 MODERNA 12+ YRS VACCINE 2020-09-11 00:00:00 Completed [facility] SARS-COV-2 COVID-19 MODERNA 12+ YRS VACCINE 2020-09-11 00:00:00 Completed [facility] SARS-COV-2 COVID-19 MODERNA 12+ YRS VACCINE 2020-09-11 00:00:00 Completed [facility] SARS-COV-2 COVID-19 MODERNA 12+ YRS VACCINE 2020-09-11 00:00:00 Completed [facility] SARS-COV-2 COVID-19 MODERNA 12+ YRS VACCINE 2020-09-11 00:00:00 Completed [facility] SARS-COV-2 COVID-19 MODERNA 12+ YRS VACCINE 2020-09-11 00:00:00 Completed [facility] SARS-COV-2 COVID-19 MODERNA VACCINE 2020-09-11 00:00:00 Completed [facility] SARS-COV-2 COVID-19 MODERNA 12+ YRS VACCINE 2020-09-11 00:00:00 Completed [facility] SARS-COV-2 COVID-19 MODERNA VACCINE 2020-09-11 00:00:00 Completed [facility] SARS-COV-2 COVID-19 MODERNA VACCINE 2020-09-11 00:00:00 Completed [facility] SARS-COV-2 COVID-19 MODERNA VACCINE 2020-08-14 00:00:00 Completed [facility] SARS-COV-2 COVID-19 MODERNA 12+ YRS VACCINE 2020-08-14 00:00:00 Completed [facility] SARS-COV-2 COVID-19 MODERNA 12+ YRS VACCINE 2020-08-14 00:00:00 Completed [facility] SARS-COV-2 COVID-19 MODERNA 12+ YRS VACCINE 2020-08-14 00:00:00 Completed [facility] SARS-COV-2 COVID-19 MODERNA 12+ YRS VACCINE 2020-08-14 00:00:00 Completed [facility] SARS-COV-2 COVID-19 MODERNA 12+ YRS VACCINE 2020-08-14 00:00:00 Completed [facility] SARS-COV-2 COVID-19 MODERNA 12+ YRS VACCINE 2020-08-14 00:00:00 Completed [facility] SARS-COV-2 COVID-19 MODERNA 12+ YRS VACCINE 2020-08-14 00:00:00 Completed [facility] SARS-COV-2 COVID-19 MODERNA 12+ YRS VACCINE 2020-08-14 00:00:00 Completed [facility] SARS-COV-2 COVID-19 MODERNA 12+ YRS VACCINE 2020-08-14 00:00:00 Completed [facility] SARS-COV-2 COVID-19 MODERNA 12+ YRS VACCINE 2020-08-14 00:00:00 Completed [facility] SARS-COV-2 COVID-19 MODERNA 12+ YRS VACCINE 2020-08-14 00:00:00 Completed [facility] SARS-COV-2 COVID-19 MODERNA VACCINE 2020-08-14 00:00:00 Completed [facility] SARS-COV-2 COVID-19 MODERNA 12+ YRS VACCINE 2020-08-14 00:00:00 Completed [facility] SARS-COV-2 COVID-19 MODERNA 12+ YRS VACCINE 2020-08-14 00:00:00 Completed [facility] SARS-COV-2 COVID-19 MODERNA VACCINE 2020-08-14 00:00:00 Completed [facility] SARS-COV-2 COVID-19 MODERNA VACCINE 2020-08-14 00:00:00 Completed [facility] TDAP 2013-10-23 00:00:00 Completed [facility] TDAP 2013-10-23 00:00:00 Completed [facility] TDAP 2013-10-23 00:00:00 Completed [facility] TDAP 2013-10-23 00:00:00 Completed [facility] TDAP 2013-10-23 00:00:00 Completed [facility] TDAP 2013-10-23 00:00:00 Completed [facility] TDAP 2013-10-23 00:00:00 Completed [facility] TDAP 2013-10-23 00:00:00 Completed [facility] TDAP 2013-10-23 00:00:00 Completed [facility] TDAP 2013-10-23 00:00:00 Completed [facility] TDAP 2013-10-23 00:00:00 Completed [facility] TDAP 2013-10-23 00:00:00 Completed [facility] TDAP 2013-10-23 00:00:00 Completed [facility] TDAP 2013-10-23 00:00:00 Completed [facility] TDAP 2013-10-23 00:00:00 Completed [facility] TDAP 2013-10-23 00:00:00 Completed [facility] TDAP 2013-10-23 00:00:00 Completed [facility] Pneumococcal Polysaccharide, PPSV23 (PNEUMOVAX) 2010-08-09 00:00:00 Completed [facility] Influenza Virus Vaccine 2010-08-09 00:00:00 Completed [facility] Pneumococcal Polysaccharide, PPSV23 (PNEUMOVAX) 2010-08-09 00:00:00 Completed [facility] Influenza Virus Vaccine 2010-08-09 00:00:00 Completed [facility] Pneumococcal Polysaccharide, PPSV23 (PNEUMOVAX) 2010-08-09 00:00:00 Completed [facility] Influenza Virus Vaccine 2010-08-09 00:00:00 Completed [facility] Pneumococcal Polysaccharide, PPSV23 (PNEUMOVAX) 2010-08-09 00:00:00 Completed [facility] Influenza Virus Vaccine 2010-08-09 00:00:00 Completed [facility] Pneumococcal Polysaccharide, PPSV23 (PNEUMOVAX) 2010-08-09 00:00:00 Completed [facility] Influenza Virus Vaccine 2010-08-09 00:00:00 Completed [facility] Pneumococcal Polysaccharide, PPSV23 (PNEUMOVAX) 2010-08-09 00:00:00 Completed [facility] Influenza Virus Vaccine 2010-08-09 00:00:00 Completed [facility] Pneumococcal Polysaccharide, PPSV23 (PNEUMOVAX) 2010-08-09 00:00:00 Completed [facility] Influenza Virus Vaccine 2010-08-09 00:00:00 Completed [facility] Pneumococcal Polysaccharide, PPSV23 (PNEUMOVAX) 2010-08-09 00:00:00 Completed [facility] Influenza Virus Vaccine 2010-08-09 00:00:00 Completed [facility] Pneumococcal Polysaccharide, PPSV23 (PNEUMOVAX) 2010-08-09 00:00:00 Completed [facility] Influenza Virus Vaccine 2010-08-09 00:00:00 Completed [facility] Pneumococcal Polysaccharide, PPSV23 (PNEUMOVAX) 2010-08-09 00:00:00 Completed [facility] Influenza Virus Vaccine 2010-08-09 00:00:00 Completed [facility] Pneumococcal Polysaccharide, PPSV23 (PNEUMOVAX) 2010-08-09 00:00:00 Completed [facility] Influenza Virus Vaccine 2010-08-09 00:00:00 Completed [facility] Pneumococcal Polysaccharide, PPSV23 (PNEUMOVAX) 2010-08-09 00:00:00 Completed [facility] Influenza Virus Vaccine 2010-08-09 00:00:00 Completed [facility] Pneumococcal Polysaccharide, PPSV23 (PNEUMOVAX) 2010-08-09 00:00:00 Completed [facility] Influenza Virus Vaccine 2010-08-09 00:00:00 Completed [facility] Pneumococcal Polysaccharide, PPSV23 (PNEUMOVAX) 2010-08-09 00:00:00 Completed [facility] Influenza Virus Vaccine 2010-08-09 00:00:00 Completed [facility] Pneumococcal Polysaccharide, PPSV23 (PNEUMOVAX) 2010-08-09 00:00:00 Completed [facility] Influenza Virus Vaccine 2010-08-09 00:00:00 Completed [facility] Pneumococcal Polysaccharide, PPSV23 (PNEUMOVAX) 2010-08-09 00:00:00 Completed [facility] Influenza Virus Vaccine 2010-08-09 00:00:00 Completed [facility] Pneumococcal Polysaccharide, PPSV23 (PNEUMOVAX) 2010-08-09 00:00:00 Completed [facility] Influenza Virus Vaccine 2010-08-09 00:00:00 Completed [facility] Pneumococcal Polysaccharide, PPSV23 (PNEUMOVAX) Unknown Completed [facility] Influenza Virus Vaccine Unknown Completed [facility] TDAP Unknown Completed [facility] SARS-COV-2 COVID-19 MODERNA 12+ YRS VACCINE Unknown Completed [facility] SARS-COV-2 COVID-19 MODERNA 12+ YRS VACCINE Unknown Completed [facility] SARS-COV-2 COVID-19 MODERNA 0.25ML BOOSTER VACCINE Unknown Completed [facility] SARS-COV-2 COVID-19 MODERNA 0.25ML BOOSTER VACCINE Unknown Completed [facility] Pneumococcal Polysaccharide, PPSV23 (PNEUMOVAX) Unknown Completed [facility] Influenza Virus Vaccine Unknown Completed [facility] TDAP Unknown Completed [facility] SARS-COV-2 COVID-19 MODERNA 12+ YRS VACCINE Unknown Completed [facility] SARS-COV-2 COVID-19 MODERNA 12+ YRS VACCINE Unknown Completed [facility] SARS-COV-2 COVID-19 MODERNA 0.25ML BOOSTER VACCINE Unknown Completed [facility] SARS-COV-2 COVID-19 MODERNA 0.25ML BOOSTER VACCINE Unknown Completed [facility] Pneumococcal Polysaccharide, PPSV23 (PNEUMOVAX) Unknown Completed [facility] Influenza Virus Vaccine Unknown Completed [facility] TDAP Unknown Completed [facility] SARS-COV-2 COVID-19 MODERNA 12+ YRS VACCINE Unknown Completed [facility] SARS-COV-2 COVID-19 MODERNA 12+ YRS VACCINE Unknown Completed [facility] SARS-COV-2 COVID-19 MODERNA 0.25ML BOOSTER VACCINE Unknown Completed [facility] SARS-COV-2 COVID-19 MODERNA 0.25ML BOOSTER VACCINE Unknown Completed [facility] Pneumococcal Polysaccharide, PPSV23 (PNEUMOVAX) Unknown Completed [facility] Influenza Virus Vaccine Unknown Completed [facility] TDAP Unknown Completed [facility] SARS-COV-2 COVID-19 MODERNA 12+ YRS VACCINE Unknown Completed [facility] SARS-COV-2 COVID-19 MODERNA 12+ YRS VACCINE Unknown Completed [facility] SARS-COV-2 COVID-19 MODERNA 0.25ML BOOSTER VACCINE Unknown Completed [facility] SARS-COV-2 COVID-19 MODERNA 0.25ML BOOSTER VACCINE Unknown Completed [facility] Pneumococcal Polysaccharide, PPSV23 (PNEUMOVAX) Unknown Completed [facility] Influenza Virus Vaccine Unknown Completed [facility] TDAP Unknown Completed [facility] SARS-COV-2 COVID-19 MODERNA 12+ YRS VACCINE Unknown Completed [facility] SARS-COV-2 COVID-19 MODERNA 12+ YRS VACCINE Unknown Completed [facility] SARS-COV-2 COVID-19 MODERNA 0.25ML BOOSTER VACCINE Unknown Completed [facility] SARS-COV-2 COVID-19 MODERNA 0.25ML BOOSTER VACCINE Unknown Completed [facility] Pneumococcal Polysaccharide, PPSV23 (PNEUMOVAX) Unknown Completed [facility] Influenza Virus Vaccine Unknown Completed [facility] TDAP Unknown Completed [facility] SARS-COV-2 COVID-19 MODERNA 12+ YRS VACCINE Unknown Completed [facility] SARS-COV-2 COVID-19 MODERNA 12+ YRS VACCINE Unknown Completed [facility] SARS-COV-2 COVID-19 MODERNA 0.25ML BOOSTER VACCINE Unknown Completed [facility] SARS-COV-2 COVID-19 MODERNA 0.25ML BOOSTER VACCINE Unknown Completed [facility] Pneumococcal Polysaccharide, PPSV23 (PNEUMOVAX) Unknown Completed [facility] Influenza Virus Vaccine Unknown Completed [facility] TDAP Unknown Completed [facility] SARS-COV-2 COVID-19 MODERNA 12+ YRS VACCINE Unknown Completed [facility] SARS-COV-2 COVID-19 MODERNA 12+ YRS VACCINE Unknown Completed [facility] SARS-COV-2 COVID-19 MODERNA 0.25ML BOOSTER VACCINE Unknown Completed [facility] SARS-COV-2 COVID-19 MODERNA 0.25ML BOOSTER VACCINE Unknown Completed [facility] Pneumococcal Polysaccharide, PPSV23 (PNEUMOVAX) Unknown Completed [facility] Influenza Virus Vaccine Unknown Completed [facility] TDAP Unknown Completed [facility] SARS-COV-2 COVID-19 MODERNA 12+ YRS VACCINE Unknown Completed [facility] SARS-COV-2 COVID-19 MODERNA 12+ YRS VACCINE Unknown Completed [facility] SARS-COV-2 COVID-19 MODERNA 0.25ML BOOSTER VACCINE Unknown Completed [facility] SARS-COV-2 COVID-19 MODERNA 0.25ML BOOSTER VACCINE Unknown Completed [facility] Pneumococcal Polysaccharide, PPSV23 (PNEUMOVAX) Unknown Completed [facility] Influenza Virus Vaccine Unknown Completed [facility] TDAP Unknown Completed [facility] SARS-COV-2 COVID-19 MODERNA 12+ YRS VACCINE Unknown Completed [facility] SARS-COV-2 COVID-19 MODERNA 12+ YRS VACCINE Unknown Completed [facility] SARS-COV-2 COVID-19 MODERNA 0.25ML BOOSTER VACCINE Unknown Completed [facility] SARS-COV-2 COVID-19 MODERNA 0.25ML BOOSTER VACCINE Unknown Completed [facility] Pneumococcal Polysaccharide, PPSV23 (PNEUMOVAX) Unknown Completed [facility] Influenza Virus Vaccine Unknown Completed [facility] TDAP Unknown Completed [facility] SARS-COV-2 COVID-19 MODERNA 12+ YRS VACCINE Unknown Completed [facility] SARS-COV-2 COVID-19 MODERNA 12+ YRS VACCINE Unknown Completed [facility] SARS-COV-2 COVID-19 MODERNA 0.25ML BOOSTER VACCINE Unknown Completed [facility] SARS-COV-2 COVID-19 MODERNA 0.25ML BOOSTER VACCINE Unknown Completed [facility] Vital Signs Vital Name Observation Time Observation Value Comments S ource Systolic blood pressure 2023-07-13 20:25:00 166 mm[Hg] [facility] Diastolic blood pressure 2023-07-13 20:25:00 101 mm[Hg] [facility] Heart rate 2023-07-13 20:25:00 101 /min [facility] Oxygen saturation in Arterial blood by Pulse oximetry 2023-07-13 20:25:00 98 /min [facility] Respiratory rate 2023-07-13 20:23:00 17 /min [facility] Body height 2023-07-13 20:23:00 172.7 cm [facility] Body weight 2023-07-13 20:23:00 87.363 kg [facility] BMI 2023-07-13 20:23:00 29.28 kg/m2 [facility] Procedures Procedure Date / Time Performed Performing Clinician Source INSURANCE CORRESPONDENCE 2023-07-26 06:01:00 Doc daniel Unassigned, [place] [facility] HB ECG ROUTINE & RHYTHM STRIP 2023-07-13 20:24:48 Valdez Chavez [facility] CONSENT/REFUSAL FOR DIAGNOSIS AND TREATMENT 2023-07-13 20:12:01 Doctor Unassigned, [place] [facility] INSURANCE CORRESPONDENCE 2023-06-14 06:01:00 Doc daniel Unassigned, [place] [facility] ASSIGNMENT OF BENEFITS 2022-07-23 23:27:01 Docconsuelo evans Unassigned, [place] [facility] INSURANCE CORRESPONDENCE 2022-07-09 06:01:00 Brad sanchez Unassigned, [place] [facility] SARS-COV-2 COVID-19 VACCINE BOOSTER,0.25ML,IM (MODERNA) 2021-12-17 18:43:07 Doctor Unassigned, [place] [facility] ASSIGNMENT OF BENEFITS 2021-07-17 15:51:36 Docconsuelo r Unassigned, [place] [facility] Encounters Start Date/Time End Date/Time Encounter Type Admission Type Attending [facility] Care Department Encounter ID Source 2023-09-09 00:00:00 2023-09-09 00:00:00 Telephone Valdez Chavez [facility] BU[facility] 1.2.840.114 350.1.13.10 4.2.7.2.[id number] [facility] 2023-09-07 15:22:00 2023-09-07 23:59:00 [facility] 1.2.840.114 350.1.13.10 4.2.7.2.[id number] [facility] 2023-09-07 15:00:00 2023-09-07 15:21:00 Outpatient R [facility] [id number] [facility] 2023-09-07 14:42:36 2023-09-07 15:21:00 Hospital Encounter Scott, [facility] BUILDING 1.2.840.114 350.1.13.10 4.2.7.2.[id number] [facility] 2023-08-10 15:00:00 2023-08-10 15:00:00 Outpatient R [facility] [id number] [facility] 2023-07-29 14:00:00 2023-07-29 14:00:00 [id number] 2023-07-26 00:00:00 2023-07-26 00:00:00 Orders Only Doctor Unassigned, [place] [facility] 1.2840.114 350.1.13.10 4.2.7.2.[id number] [facility] 2023-07-13 14:20:00 2023-07-13 14:52:41 [facility] [id number] [facility] 2023-07-13 14:20:00 2023-07-13 14:52:41 Office Visit Scott [facility] BUILDING 1.2.840.114 350.1.13.10 4.2.7.2.[id number] [facility] 2023-07-13 00:00:00 2023-07-13 00:00:00 Orders Only Doctor Unassigned, [place] [facility] 1.2840.114 350.1.13.10 4.2.7.2.[id number] [facility] 2023-06-14 00:00:00 2023-06-14 00:00:00 Orders Only Doctor Unassigned, [place] [facility] 1.2840.114 350.1.13.10 4.2.7.2.[id number] [facility] 2022-09-25 00:00:00 2022-09-25 00:00:00 Telephone Sarai Casrto do [facility] 1.840.114 350.1.13.10 4.2.7.2.[id number] [facility] 2022-09-22 00:00:00 2022-09-22 00:00:00 Letter (Out) Inder Mar [facility] 1.840.114 350.1.13.10 4.2.7.2.[id number] [facility] 2022-09-21 00:00:00 2022-09-21 00:00:00 Telephone Sarai Castro do [facility] 1.840.114 350.1.13.10 4.2.7.2.[id number] [facility] 2022-09-21 00:00:00 2022-09-21 00:00:00 Telephone Sarai Castro do [facility] 1.0.114 350.1.13.10 4.2.7.2.[id number] [facility] 2022-09-17 00:00:00 2022-09-17 00:00:00 Telephone Sarai Castro do [facility] 1.0.114 350.1.13.10 4.2.7.2.[id number] [facility] 2022-09-16 00:00:00 2022-09-16 00:00:00 Telephone Kamille Barajas [facility] 1..114 350.1.13.10 4.2.7.2.[id number] [facility] 2022-09-14 00:00:00 2022-09-14 00:00:00 [facility] 1..114 350.1.13.10 4.2.7.2.[id number] [facility] 2022-07-31 15:15:00 2022-07-31 15:15:00 Outpatient MEREDITH MOHAMUD [facility] [id number] [facility] 2022-07-29 00:00:00 2022-07-29 00:00:00 Telephone Provider, [facility] 1..114 350.1.13.10 4.2.7.2.[id number] [facility] 2022-07-24 00:00:00 2022-07-24 00:00:00 Letter (Out) Evert Posada [facility] 1..114 350.1.13.10 4.2.7.2.[id number] [facility] 2022-07-23 17:15:00 2022-07-23 17:30:00 Laboratory Only Only, Ang Db Test Unknown, Attending [facility] 1.84.114 350.1.13.10 4.2.7.2.[id number] [facility] 2022-07-23 17:15:00 2022-07-23 17:15:00 Outpatient BUTCH KEY III [facility] [id number] [facility] 2022-07-23 00:00:00 2022-07-23 00:00:00 Orders Only Doctor Unassigned, [place] [facility] 1.114 350.1.13.10 4.2.7.2.[id number] [facility] 2022-07-09 00:00:00 2022-07-09 00:00:00 Orders Only Doctor Unassigned, [place] [facility] 1.114 350.1.13.10 4.2.7.2.[id number] [facility] 2021-12-17 14:00:00 2021-12-17 14:10:00 Imm/Inj Visit Vaccine, [facility] Cornelio Lambert [facility] BU[facility] 1.84.114 350.1.13.10 4.2.7.2.[id number] [facility] 2021-12-17 14:00:00 2021-12-17 14:00:00 Outpatient R CORNELIO LAMBERT [facility] [id number] [facility] 2021-07-17 09:45:00 2021-07-17 10:00:00 Laboratory Only Only, Ang Db Test Green, Eileen [facility] 1.84.114 350.1.13.10 4.2.7.2.[id number] [facility] 2021-07-17 09:45:00 2021-07-17 09:45:00 Outpatient R EILEEN PAK [facility] [id number] [facility] 2021-07-17 09:15:00 2021-07-17 09:15:00 Outpatient Jono PAK EILEEN [facility] [id number] [facility] 2021-07-17 00:00:00 2021-07-17 00:00:00 Letter (Out) Doctor Unassigned, [place] [facility] 1..840.114 350.1.13.10 4.2.7.2.[id number] [facility] 2021-07-17 00:00:00 2021-07-17 00:00:00 Orders Only Doctor Unassigned, [place] [facility] 1..840.114 350.1.13.10 4.2.7.2.[id number] [facility] Notes Date/Time Note Provider Source 2023-09-10 10:41:13 skt16XpYyC8Z6ceLDoWd epTGx4tLwDkmr PpMOKEuHuxOBmKwr5mE4yo0ZbcU4w7D96 28-09-04T10:41:13 Patient has been scheduled to see Dr. Hoffmann. He will review the results when goes to the appointment. 04020-8Hobcoyngi encounter PwjoMY3770-38-08W65:42:01Telephon e encounter NoteTXT1.2.840.001740.1.13.104.2. 7.2.056006|[id number] for patient bxth98880-9KkmgCSWDRGITXZJGilmqrx ed C-CDA narrative qjqo409918364Wmnpo [address] Os[id number] 220WZBSKPTOOMFOJLFLIQSXCB3414-22- 05T10:42:011.2.840.920260.1.72.3. 15|1.2.840.542583.1.13.104.2.7.2. [id number] Deidra Sanders [facility] 2023-09-10 10:07:10 nJwInq51TUzPRJOs+PR5 R4CwbBpYXRl8P yQVqi62yPiPT76AT0uiP0DpAAp9eeUJ23 28-09-04T10:07:10 left to call office back for results and new referral appt needed.Valdez Chavez MD09/08/2023 8:38 AM CDTEchocardiogram showed severe aortic stenosis and mitral stenosis. Please make appointment with [facility] interventional clinic. 99027-7Xketvzexg encounter OhpxXD7414-22-40N20:09:04Telephon e encounter NoteTXT1.2.840.102284.1.13.104.2. 7.2.982146|[id number] for patient yaly66157-7LsiiXHMSZFMLFVDYxascsz ed C-CDA narrative [address] NpqpDvxjdtyjyOigaggrbfQEYN9743835 695TGFOZNIWWMULAVURVXXVZX6406-43- 05T10:09:041.2.840.586231.1.72.3. 15|1.2.840.260831.1.13.104.2.7.2. 727879_[id number] [facility] 2023-09-09 10:58:19 HabMUwYelH/FAQKh7cDU Qy+PMWmYyZv2l 4oaA1EoQFF9FQF7lZZ/jeMrjATSF46E33 29-09-03T10:58:19 Patient is requesting a call back in regards to the echo results. Please advise. 35262-5Nbxzvczwa encounter IqbpNP8607-86-09G60:07:11Telephon e encounter NoteTXT1.2.840.384765.1.13.104.2. 7.2.889376|[id number] for patient rwlk45384-9QadbWNCNQGXEZIHVexiflb ed C-CDA narrative textUT[id number] 150MAEDJGSLSCLODDQKGUXJVS6734-22- 04T1:07:111.2.840.969822.1.72.3. 15|1.2.840.492686.1.13.104.2.7.2. 727879_[id number] [facility] 2023-09-07 16:00:00 87zBDEwrbi+zj3wB+v3F Hf8fi9RWC+7ys Z9ARY5Afw35P+k8E24SL+9CBvuIdmg/20 28-09-01T16:00:00 24 hour holter (SEER 1000, #1) applied to patient, tolerated well. Wear, care, diary entry and monitor return teaching given, understanding verbalized. Monitor to be returned on Wed09/08/2023 by 4:45 PM, return letter acknowledged and signed. 15893-4Rwtcc DcduGG5807-93-88C97:08:53Nurse NoteTXT1.2.840.687885.1.13.104.2. 7.2.470613|[id number] for patient syry90221-0Giskr NoteLNNARRATIVEFormatted C-CDA narrative [id number] [address]ONEY[id number] 461KWRAWCHXLZFDGZSVOEDXLQ9927-42- 02T16:08:531.2.840.593629.1.72.3. 15|1.2.840.748167.1.13.104.2.7.2. [id number] Mariana Bush MA [facility] 2023-07-13 14:20:00 jBneCaGVz/yXI/ix6ptQ yxS/ObcSO6mCp qpEJk46fDkeRYUFKaAjAJmMJMqCIHKQ36 31-07-054:20:00Addended by: MARIANA BUSH on: 07/13/2023 03:43 PMModules accepted: Orders 68533-5Gphcizhr CrvotxrnAM0038-57-92D52:43:12Adde ndum DocumentTXT1.2.840.030380.1.13.10 4.2.7.2.909408|[id number] ble for patient rdui07108-1QpoqVENPYTXQXEFXimyybx ed C-CDA narrative gjga906367472Byushzccj D Garcia [id number] 434OEMWTLMMYHIIJGLJYNNZGW9462-55- 06T15:43:121.2.840.684466.1.72.3. 15|1.2.840.459356.1.13.104.2.7.2. 727879_[id number] Mariana Bush FARZANEH [facility] 2023-07-13 14:20:00 dDrEiz2BsmBFrix/[facility] Lz0lzuhpk8R6n FsKcgSLA0PpR2wCm12lHj/cm4zDanmI53 31-07-054:20:00Addended by: VALDEZ CHAVEZ MD on: 09/08/2023 08:37 AMModules accepted: Orders 47071-8Njpuoctq SljagjxcOP1836-25-05T82:37:52Adde ndum DocumentTXT1.2.840.395676.1.13.10 4.2.7.2.174779|[id number] [facility] aige33290-2UyocIYSOIIRJYXUGouhwdy ed C-CDA narrative text[address] QqwqLlunezaerNimtnyfzsXDDA2778256 105XJHGJLWAETRMGYCODFZAGR5284-21- 03T08:37:521.2.840.363932.1.72.3. 15|1.2.840.784464.1.13.104.2.7.2. [id number] [facility]"
--- NOTE | 2023-09-14 11:03 | ER ---
Nurse's Notes [facility] Name: Toni Duncan Age: 63 yrs Sex: Male : 1960 Arrival Date: 09/14/2023 Time: 08:48 Bed 2 Private MD: Diagnosis: Arteriovenous fistula, acquired-Bleeding AV fistula Presentation: 09/13 08:51 Chief complaint: EMS states: patient went to dialysis and his access would not stop ko1 bleeding after he was started. He was only 45 minutes into his dialysis. Patient thinks he might have accidentally took 2 eliquis tablets yesterday. Coronavirus screen: At this time, the client does not indicate any symptoms associated with coronavirus-19. Ebola Screen: No symptoms or risks identified at this time. Initial Sepsis Screen: Does the patient meet any 2 criteria? No. Patient's initial sepsis screen is negative. Does the patient have a suspected source of infection? No. Patient's initial sepsis screen is negative. Risk Assessment: Do you want to hurt yourself or someone else? Patient reports no desire to harm self or others. Onset of symptoms was September 14, 2023. Care prior to arrival: clamps placed to left arm at dialysis center. 08:51 Method Of Arrival: EMS: [facility] ko1 08:51 Acuity: MIKE 3 ko1 Triage Assessment: 08:54 General: Appears comfortable, Behavior is cooperative, anxious. Pain: Denies pain. ko1 EENT: No deficits noted. Neuro: No deficits noted. Cardiovascular: Dialysis shunt: in the left arm, with palpable thrill, with auscultated bruit, with no erythema, with no edema, clamps in place, no active bleeding noted. Respiratory: No deficits noted. GI: No deficits noted. : Reports does not make urine very much. Derm: No deficits noted. Musculoskeletal: No deficits noted. Historical: - Allergies: 08:54 No Known Allergies; ko1 - Home Meds: 08:54 Aspirin Oral [Active]; ko1 10:05 Plavix 75 mg Oral tablet 1 tab daily [Active]; kc6 - PMHx: 08:54 Diabetes - NIDDM; dialyis; ESRD; Hypertension; ko1 - Immunization history:: Adult Immunizations up to date. - Infectious Disease History:: Denies. - Social history:: Smoking status: Patient denies any tobacco usage or history of. - History obtained from: EMS. Screenin:52 [facility] ED Fall Risk Assessment (Adult) History of falling in the last 3 months, kc6 including since admission No falls in past 3 months (0 pts) Confusion or Disorientation No (0 pts) Intoxicated or Sedated No (0 pts) Impaired Gait No (0 pts) Mobility Assist Device Used No (0 pt) Altered Elimination No (0 pt) Score/Fall Risk Level 0 - 2 = Low Risk. Abuse screen: Denies threats or abuse. Denies injuries from another. Nutritional screening: No deficits noted. Tuberculosis screening: No symptoms or risk factors identified. Assessment: 08:56 General: Appears in no apparent distress. comfortable, well groomed, well developed, kc6 Behavior is cooperative, anxious. Pain: Denies pain. Neuro: Level of Consciousness is awake, alert, obeys commands, Oriented to person, place, time, situation, Appropriate for age. Cardiovascular: Heart tones S1 S2 present Capillary refill < 3 seconds Dialysis shunt: in the left arm, with palpable thrill, with auscultated bruit, with no erythema, with no edema, no bleeding noted. Respiratory: Airway is patent Trachea midline Respiratory effort is even, unlabored, Respiratory pattern is regular, symmetrical. GI: No signs and/or symptoms were reported involving the gastrointestinal system. : No signs and/or symptoms were reported regarding the genitourinary system. EENT: No signs and/or symptoms were reported regarding the EENT system. Derm: No signs and/or symptoms reported regarding the dermatologic system. Skin is intact, is healthy with good turgor, Skin is pink, warm \T\ dry. Musculoskeletal: No signs and/or symptoms reported regarding the musculoskeletal system. Circulation, motion, and sensation intact. Capillary refill < 3 seconds, Range of motion: intact in all extremities. 09:56 Reassessment: Patient appears in no apparent distress at this time. No changes from kc6 previously documented assessment. Patient and/or family updated on plan of care and expected duration. Pain level reassessed. Patient is alert, oriented x 3, equal unlabored respirations, skin warm/dry/pink. Vital Signs: 08:51 BP 185 / 90; Pulse 97; Resp 17; Temp 97; Pulse Ox 99% ; Weight 88.45 kg; Height 5 ft. 8 ko1 in. ; 09:11 BP 178 / 87; Pulse 98; Resp 14; Pulse Ox 98% ; ko1 09:39 BP 169 / 89; kc6 09:57 BP 164 / 99; Pulse 99; Resp 16; Pulse Ox 99% ; ko1 10:09 BP 154 / 92; Pulse 99; Resp 16; Pulse Ox 100% ; ko1 08:51 Body Mass Index 29.65 (88.45 kg, 172.72 cm) ko1 ED Course: 08:49 Patient arrived in ED. ko1 08:52 Jessica Ying, RN is Primary Nurse. kc6 08:52 Patient has correct armband on for positive identification. Bed in low position. Call kc6 light in reach. Side rails up X 1. Client placed on continuous cardiac and pulse oximetry monitoring. NIBP monitoring applied. 08:54 Triage completed. ko1 08:54 Arm band placed on right wrist. Patient placed in an exam room, on a stretcher, on ko1 bus driver/monitor, on pulse oximetry, Patient notified of wait time. 09:11 Asha Daly is Attending Physician. ci 11:12 Provided Education on: NA. ko1 11:12 No provider procedures requiring assistance completed. Patient did not have IV access ko1 during this emergency room visit. Administered Medications: No medications were administered Medication: 11:12 VIS not applicable for this client. ko1 Outcome: 11:03 Discharge ordered by MD. ci 11:12 Discharged to home ambulatory, ko1 11:12 Condition: stable 11:12 Discharge instructions given to patient, Instructed on discharge instructions, follow up and referral plans. Demonstrated understanding of instructions, follow-up care, 11:13 Patient left the ED. ko1 Signatures: Jessica Ying, RN RN kc6 Susan Petty RN RN ko1 Asha Daly ci Corrections: (The following items were deleted from the chart) 09:21 08:56 Cardiovascular: Heart tones S1 S2 present Capillary refill < 3 seconds Dialysis kc6 shunt: in the left arm, with no erythema, with no edema, kc6 10:05 08:54 Home Meds: Eliquis oral; ko1 kc6
--- NOTE | 2023-09-14 11:03 | EDPHYS ---
Physician Documentation [facility] Name: Toni Duncan Age: 63 yrs Sex: Male : 1960 Arrival Date: 09/14/2023 Time: 08:48 Bed 2 Private MD: ED Physician Asha Daly HPI: 09/13 09:44 This 63 yrs old Black Male presents to ER via EMS with complaints of bleeding dialysis ci access. 09:44 Patient is a 63-year-old male with PMH ESRD on HD TTS, hypertension, DM2 who presents ci to the ED with left dialysis AV fistula bleeding that began 2 hours prior to arrival. Patient only got 45 minutes of dialysis and was sent to the ER for further evaluation. Patient reports he may have accidentally taking 2 tablets of his Eliquis. He denies any chest pain, shortness of breath, nausea/vomiting. Clamp placed by EMS, bleeding controlled upon arrival to the ER.. Historical: - Allergies: 08:54 No Known Allergies; ko1 - Home Meds: 08:54 Aspirin Oral [Active]; ko1 10:05 Plavix 75 mg Oral tablet 1 tab daily [Active]; kc6 - PMHx: 08:54 Diabetes - NIDDM; dialyis; ESRD; Hypertension; ko1 - Immunization history:: Adult Immunizations up to date. - Infectious Disease History:: Denies. - Social history:: Smoking status: Patient denies any tobacco usage or history of. - History obtained from: EMS. ROS: 09:44 Constitutional: Negative for fever, chills, and weight loss, ci 09:44 MS/extremity: Positive for 09:44 MS/extremity: Positive for Left AV fistula present, thrill and bruit present. No active bleeding., 09:44 Skin: Positive for 09:44 Skin: Exam: 09:44 Constitutional: This is a well developed, well nourished patient who is awake, alert, ci and in no acute distress. Head/Face: Normocephalic, atraumatic. Eyes: Pupils equal round and reactive to light, extra-ocular motions intact. Lids and lashes normal. Conjunctiva and sclera are non-icteric and not injected. Cornea within normal limits. Periorbital areas with no swelling, redness, or edema. ENT: Nares patent. No nasal discharge, no septal abnormalities noted. Tympanic membranes are normal and external auditory canals are clear. Oropharynx with no redness, swelling, or masses, exudates, or evidence of obstruction, uvula midline. Mucous membranes moist. Neck: Trachea midline, no thyromegaly or masses palpated, and no cervical lymphadenopathy. Supple, full range of motion without nuchal rigidity, or vertebral point tenderness. No Meningismus. Chest/axilla: Normal chest wall appearance and motion. Nontender with no deformity. No lesions are appreciated. Cardiovascular: Regular rate and rhythm with a normal S1 and S2. No gallops, murmurs, or rubs. Normal PMI, no JVD. No pulse deficits. Respiratory: Lungs have equal breath sounds bilaterally, clear to auscultation and percussion. No rales, rhonchi or wheezes noted. No increased work of breathing, no retractions or nasal flaring. Abdomen/GI: Soft, non-tender, with normal bowel sounds. No distension or tympany. No guarding or rebound. No evidence of tenderness throughout. Back: No spinal tenderness. No costovertebral tenderness. Full range of motion. Skin: Warm, dry with normal turgor. Normal color with no rashes, no lesions, and no evidence of cellulitis. MS/ Extremity: Pulses equal, no cyanosis. Neurovascular intact. Full, normal range of motion. Neuro: Awake and alert, GCS 15, oriented to person, place, time, and situation. Cranial nerves II-XII grossly intact. Motor strength 5/5 in all extremities. Sensory grossly intact. Cerebellar exam normal. Normal gait. Psych: Awake, alert, with orientation to person, place and time. Behavior, mood, and affect are within normal limits. Vital Signs: 08:51 BP 185 / 90; Pulse 97; Resp 17; Temp 97; Pulse Ox 99% ; Weight 88.45 kg; Height 5 ft. 8 ko1 in. ; 09:11 BP 178 / 87; Pulse 98; Resp 14; Pulse Ox 98% ; ko1 09:39 BP 169 / 89; kc6 09:57 BP 164 / 99; Pulse 99; Resp 16; Pulse Ox 99% ; ko1 10:09 BP 154 / 92; Pulse 99; Resp 16; Pulse Ox 100% ; ko1 08:51 Body Mass Index 29.65 (88.45 kg, 172.72 cm) ko1 MDM: 09:11 Patient medically screened. ci 09:44 Differential Diagnosis Bleeding fistula, AV fistula malfunction, acute blood loss ci anemia. Data reviewed: vital signs, nurses notes. Test considered but Not performed: Labs: CBC considered but patient is hemodynamically stable, BP 169/89, no tachycardia, denies chest pain, shortness of breath.. Historians other than the Patient: EMS: Bleeding from AV fistula site. Care significantly affected by the following chronic conditions: Diabetes, Hypertension. Counseling: I had a detailed discussion with the patient and/or guardian regarding the historical points, exam findings, and any diagnostic results supporting the discharge/admit diagnosis, the presence of at least one elevated blood pressure reading (>120/80) during this emergency department visit, lab results, the need for outpatient follow up, to return to the emergency department if symptoms worsen or persist or if there are any questions or concerns that arise at home. ED course: Patient arrives to the ED hemodynamically stable and in no acute distress. Clamp removed from AV fistula site, no active bleeding noted.. 10:59 ED course: Patient reassessed, no further bleeding in the ED. Patient's now at ci bedside with his meds, he is on 75 mg Plavix and aspirin 81 mg. Not on Eliquis. Patient remained hemodynamically stable, will discharge with close outpatient follow-up.. Administered Medications: No medications were administered Disposition Summary: 09/14/23 11:03 Discharge Ordered Notes: Location: Home ci Problem: new ci Symptoms: are resolved ci Condition: Stable ci Diagnosis - Arteriovenous fistula, acquired - Bleeding AV fistula ci Followup: ci - With: Private Physician - When: 1 - 2 days - Reason: Recheck today's complaints, Re-evaluation by your physician Discharge Instructions: - Discharge Summary Sheet ci - Dialysis Vascular Access Malfunction ci - AV Fistula Placement, Care After ci - Vascular Access for Hemodialysis ci Forms: - Medication Reconciliation Form ci - Thank You Letter ci - Antibiotic Education ci - Prescription Opioid Use ci - Patient Portal Instructions ci - Leadership Thank You Letter ci Signatures: Jessica Ying RN RN kc6 Susan Petty RN RN ko1 Asha Daly ci Corrections: (The following items were deleted from the chart) 10:05 08:54 Home Meds: Eliquis oral; ko1 kc6
== END 2023-09-14 11:13 | disposition home or self-care (01) ==
LOC: ER 08:48
DX: T82.838A Hemorrhage due to vascular prosthetic devices, implants and grafts, initial encounter (principal); E11.22 Type 2 diabetes mellitus with diabetic chronic kidney disease; I12.0 Hypertensive chronic kidney disease with stage 5 chronic kidney disease or end stage renal disease; N18.6 End stage renal disease; Z99.2 Dependence on renal dialysis; Z79.01 Long term (current) use of anticoagulants; Z79.82 Long term (current) use of aspirin

== ENCOUNTER 2024-04-15 14:07 | Emergency (ER) | payer OTHER ==
--- OUTSIDE RECORDS SUMMARY | 2024-04-15 14:12 | XMS REPORT | Continuity of Care Document ---
Author Name Unknown Address [address] [facility] [address] [place] [address] [facility] Address [address] [facility] [place] [address] Care Team Providers Care Jewel Gauger Name Role Phone Pcp, Patient Does Not Have A Primary Care Physic bethany VALDEZ CHAVEZ Attending Clinician Unavailable Forrest Chan DO Attending Clinician [phone] OPAL MOJICA Attending Clinician Unavailable Adam Campuzano MD Attending Clinician [phone] [facility], Cardiovascular Attending Clinician Unavailable Opal Mojica MD Attending Clinician [phone] Valdez Chavez MD Attending Clinician [phone] EDEL ESCALANTE Attending Clinician Unavailable EDEL ESCALANTE Attending Clinician Unavailable Doctor Unassigned, [place] Attending Clinician U afshin Pittman MD, Sarai Ramsay N Attending Clinician + [phone] Inder Mar MD Attending Clinician [phone] Karl RN, Kamille Tejada Attending Clinician Unavail able MEREDITH CONLEY Attending Clinician Unavaila ble Provider, [facility] Attending Clinician Unavailable Swetha ZHOU, Evert R Attending Clinician Unavailabl e Only, [facility] Test Attending Clinician Unavailabl e Unknown, Attending Attending Clinician Unavailab BUTCH [place] III Attending Clinician Unavailabl e Vaccine, [facility] Attending Clinician Unavailable Cornelio Lambert DO Attending Clinician CORNELIO LAMBERT Attending Clinician Unavail able Juanjo BRAZING FURNACE OPERATOR, Eileen Attending Clinician [phone] EILEEN PAK Attending Clinician Unavailable OPAL MOJICA Admitting Clinician Unavailable Opal Mojica MD Admitting Clinician Payers Payer Name Policy Type Policy Number Effective Date Expirati on Date Source Problems Condition Name Condition Details Condition Category Status Onset Date Resolution Date Last Treatment Date Treating Clinician Comments Source Nonrheumat ic aortic valve stenosis Nonrheumat ic aortic valve stenosis Disease Active 10-19 00:00: 00 [facility] Nonrheumat ic mitral valve stenosis Nonrheumat ic mitral valve stenosis Disease Active 10-19 00:00: 00 [facility] Chronic heart failure with preserved ejection fraction Chronic heart failure with preserved ejection fraction Disease Active 07-13 00:00: 00 [facility] Coronary artery disease involving saxman coronary artery of saxman heart without angina pectoris Coronary artery disease involving saxman coronary artery of saxman heart without angina pectoris Disease Active 07-13 00:00: 00 [facility] PAD (periphera l artery disease) PAD (periphera l artery disease) Disease Active 07-13 00:00: 00 [facility] Tachycardi a Tachycardi a Disease Active 07-13 00:00: 00 [facility] Hyperlipid emia, unspecifie d hyperlipid emia type Hyperlipid emia, unspecifie d hyperlipid emia type Disease Active 07-13 00:00: 00 [facility] Sepsis Sepsis Disease Active 30 00:00: 00 [facility] Anemia of chronic kidney failure Anemia of chronic kidney failure Disease Active 2012-06 00:00: 00 [facility] Metabolic bone disease Metabolic bone disease Disease Active 2012-06 015 00:00: 00 [facility] ESRD (end stage renal disease) on dialysis ESRD (end stage renal disease) on dialysis Disease Active 2012-06 00:00: 00 [facility] Encounter regarding vascular access for dialysis for ESRD Encounter regarding vascular access for dialysis for ESRD Disease Active 2012-06 00:00: 00 [facility] Hyperkalem ia Hyperkalem ia Disease Active 08-26 00:00: 00 [facility] Essential hypertensi on, malignant Essential hypertensi on, malignant Disease Active 08-09 00:00: 00 [facility] Diabetes mellitus Diabetes mellitus Disease Recurre nce 08-09 00:00: 00 [facility] Hypertensi on Hypertensi on Disease Recurre [facility] Anxiety Anxiety Disease Recurre [facility] Allergies, Adverse Reactions, Alerts Allergy Name Allergy Type Status Severity Reaction(s) Onset Date Inactive Date Treating Clinician Comments Source NO KNOWN ALLERGIE S Drug Class Active [facility] Social History Social Habit Start Date Stop Date Quantity Comments [facility] intake 2023-11-08 00:00:00 2023-11-08 00:00:00 Current non-drinker of alcohol (finding) [facility] History of Social function 2023-07-13 00:00:00 2023-07-13 00:00:00 [facility] Exposure to SARS-CoV-2 (event) 2022-07-13 00:00:00 2022-07-23 17:26:00 Not sure [facility] Alcohol intake 2013-10-24 00:00:00 2013-10-24 00:00:00 Current non-drinker of alcohol (finding) [facility] Tobacco use and exposure 2010-08-09 00:00:00 2010-08-09 00:00:00 Smokeless tobacco non-user [facility] Sex assigned at 1960 00:00:00 1960 00:00:00 [facility] Smoking Status Start Date Stop Date Source Never smoked tobacco [facility] Medications Ordered Medication Name Filled Medication Name Start Date Stop Date Current Medication? Ordering Clinician Indication Dosage Frequency Signature (SIG) Comments Components Source calcium carbonate (TUMS) 200 mg calcium (500 mg) chewable tablet 12-09 18:02: 31 Yes 1{tbl} Take 1 tablet by mouth in the morning and 1 tablet at noon and 1 tablet in the evening. [facility] losartan (COZAAR) 50 mg tablet 12-09 18:02: 31 Yes 50mg Take 1 tablet by mouth in the morning. [facility] VITAMIN B COMP W-C/FA/ZINC (DIALYVITE 800 WITH ZINC ORAL) 12-09 18:02: 31 Yes Take by mouth. [facility] isosorbide mononitrate 30 mg 24 hr tablet 12-09 18:02: 31 Yes 30mg Take 1 tablet by mouth in the morning and 1 tablet in the evening. [facility] atenoloL 25 mg tablet 12-09 18:02: 31 Yes 25mg Take 1 tablet by mouth at bedtime. [facility] furosemide 80 mg tablet 12-09 18:02: 31 Yes 80mg Take 1 tablet by mouth every morning and evening. [facility] doxazosin 2 mg tablet 12-09 18:02: 31 Yes 2mg Take 1 tablet by mouth in the morning. [facility] amitriptyli ne 50 mg tablet 12-09 18:02: 31 Yes 50mg Take 1 tablet by mouth at bedtime. [facility] clopidogreL 75 mg tablet 12-09 18:02: 31 Yes 75mg Take 1 tablet by mouth in the morning. [facility] SERTraline 25 mg tablet 12-09 18:02: 31 Yes 25mg Take 1 tablet by mouth in the morning. [facility] iopamidol (ISOVUE-370 ) injection 12-09 17:44: 12 12-09 18:08 :12 No ONCE INTRA PROCEDURE, Starting on Wed12/10/23 at 1244, Until Wed12/10/23 at 1308, Routine, CV Intraproce dure [facility] heparin 1,000 unit/mL injection 12-09 16:55: 15 12-09 18:08 :12 No ONCE INTRA PROCEDURE, Starting on Wed12/10/23 at 1155, Until Wed12/10/23 at 1308, Routine, CV Intraproce dure [facility] lidocaine 1% (PF) (XYLOCAINE) injection 12-09 16:47: 09 12-09 18:08 :12 No ONCE INTRA PROCEDURE, Starting on Wed12/10/23 at 1147, Until Wed12/10/23 at 1308, Routine, CV Intraproce dure [facility] FENTanyl PF (SUBLIMAZE (PF)) injection 12-09 16:36: 26 12-09 18:08 :12 No ONCE INTRA PROCEDURE, Starting on Wed12/10/23 at 1136, Until Wed12/10/23 at 1308, Routine, CV Intraproce dure [facility] midazolam (VERSED) injection 12-09 16:36: 12 12-09 18:08 :13 No ONCE INTRA PROCEDURE, Starting on Wed12/10/23 at 1136, Until Wed12/10/23 at 1308, Routine, CV Intraproce dure [facility] atorvastati n 40 mg tablet 07-13 14:40: 59 07-13 00:00 :00 No 40mg Take 1 tablet by mouth at bedtime. [facility] furosemide 80 mg tablet 07-13 14:32: 33 Yes 80mg Take 1 tablet by mouth every morning and evening. [facility] doxazosin 2 mg tablet 07-13 14:32: 33 Yes 2mg Take 1 tablet by mouth in the morning. [facility] amitriptyli ne 50 mg tablet 07-13 14:32: 33 Yes 50mg Take 1 tablet by mouth at bedtime. [facility] clopidogreL 75 mg tablet 07-13 14:32: 27 Yes 75mg Take 1 tablet by mouth in the morning. [facility] SERTraline 25 mg tablet 07-13 14:32: 27 Yes 25mg Take 1 tablet by mouth in the morning. [facility] calcium carbonate (TUMS) 200 mg calcium (500 mg) chewable tablet 07-13 14:31: 26 Yes 1{tbl} Take 1 tablet by mouth in the morning and 1 tablet at noon and 1 tablet in the evening. [facility] losartan (COZAAR) 50 mg tablet 07-13 14:31: 26 Yes 50mg Take 1 tablet by mouth in the morning. [facility] VITAMIN B COMP W-C/FA/ZINC (DIALYVITE 800 WITH ZINC ORAL) 07-13 14:31: 26 Yes Take by mouth. [facility] isosorbide mononitrate 30 mg 24 hr tablet 07-13 14:31: 26 Yes 30mg Take 1 tablet by mouth in the morning and 1 tablet in the evening. [facility] atenoloL 25 mg tablet 07-13 14:31: 26 Yes 25mg Take 1 tablet by mouth at bedtime. [facility] carvedilol (COREG) 25 mg tablet 07-13 14:29: 43 07-13 00:00 :00 No 25mg Take 25 mg by mouth 2 (two) times daily with meals. [facility] atorvastati n 80 mg tablet 07-13 00:00: 00 Yes [id number] 80mg Take 1 tablet by mouth at bedtime. [facility] sevelamer (RENVELA) 800 mg tablet 01-03 00:00: 00 Yes 2400mg Take 3 Tabs by mouth 3 (three) times daily with meals. [facility] VITAMIN B COMP W-C/FA/ZINC (DIALYVITE 800 WITH ZINC ORAL) 10-23 11:21: 43 Yes Take by mouth. [facility] carvedilol (COREG) 25 mg tablet 10-23 11:21: 43 Yes 25mg Take 25 mg by mouth 2 (two) times daily with meals. [facility] losartan (COZAAR) 50 mg tablet 10-23 11:21: 43 Yes 50mg Take 1 tablet by mouth in the morning. [facility] calcium carbonate (TUMS) 200 mg calcium (500 mg) chewable tablet 10-09 10:35: 33 Yes 1{tbl} Take 1 tablet by mouth in the morning and 1 tablet at noon and 1 tablet in the evening. [facility] ceFAZolin (ANCEF) 1 gram IV piggyback 10-08 00:00: 00 Yes 1g post hemodialys is to complete a total of 11 days [facility] hydralAZINE (APRESOLINE ) 50 mg tablet 2012-06 00:00: 00 07-13 00:00 :00 No 100mg Take 2 Tabs by mouth every 8 (eight) hours. [facility] aspirin 81 mg chewable tablet 2012-06 00:00: 00 Yes 81mg Take 1 Tab by mouth daily. [facility] ibuprofen (MOTRIN) 400 mg tablet 2012-06 00:00: 00 Yes 400mg Take 1 Tab by mouth 3 (three) times daily with meals. [facility] pravastatin (PRAVACHOL) 80 mg tablet 2012-06 00:00: 00 07-13 00:00 :00 No [id number] 80mg Take 1 Tab by mouth at bedtime. [facility] isosorbide dinitrate (ISORDIL) 20 mg tablet 06-23 00:00: 00 07-13 00:00 :00 No 20mg Take 1 Tab by mouth 3 (three) times daily. [facility] insulin NPH (NOVOLIN N) 100 unit/mL injection 08-14 00:00: 00 Yes 15U inject 15 Units under the skin every morning and evening. [facility] Immunizations Ordered Immunization Name Filled Immunization Name Date Status Comments Source SARS-COV-2 COVID-19 MODERNA 0.25ML BOOSTER VACCINE 2021-12-17 00:00:00 Completed [facility] SARS-COV-2 COVID-19 MODERNA 0.25ML BOOSTER VACCINE 2021-12-17 00:00:00 Completed [facility] SARS-COV-2 COVID-19 MODERNA 0.25ML BOOSTER VACCINE 2021-12-17 00:00:00 Completed [facility] SARS-COV-2 COVID-19 MODERNA 0.25ML BOOSTER VACCINE 2021-12-17 00:00:00 Completed [facility] SARS-COV-2 COVID-19 MODERNA 0.25ML BOOSTER VACCINE 2021-12-17 00:00:00 Completed [facility] SARS-COV-2 COVID-19 MODERNA 0.25ML BOOSTER VACCINE 2021-12-17 00:00:00 Completed [facility] SARS-COV-2 COVID-19 MODERNA 0.25ML BOOSTER VACCINE 2021-12-17 00:00:00 Completed [facility] SARS-COV-2 COVID-19 MODERNA 0.25ML BOOSTER VACCINE 2021-12-17 00:00:00 Completed [facility] SARS-COV-2 COVID-19 MODERNA 0.25ML BOOSTER VACCINE 2021-12-17 00:00:00 Completed [facility] SARS-COV-2 COVID-19 MODERNA 0.25ML BOOSTER VACCINE 2021-12-17 00:00:00 Completed [facility] SARS-COV-2 COVID-19 MODERNA 0.25ML BOOSTER VACCINE 2021-12-17 00:00:00 Completed [facility] SARS-COV-2 COVID-19 MODERNA 0.25ML BOOSTER VACCINE 2021-12-17 00:00:00 Completed [facility] SARS-COV-2 COVID-19 MODERNA 0.25ML BOOSTER VACCINE 2021-12-17 00:00:00 Completed [facility] SARS-COV-2 COVID-19 MODERNA 0.25ML BOOSTER VACCINE 2021-12-17 00:00:00 Completed [facility] SARS-COV-2 COVID-19 MODERNA 0.25ML BOOSTER VACCINE 2021-05-13 00:00:00 Completed [facility] SARS-COV-2 COVID-19 MODERNA 0.25ML BOOSTER VACCINE 2021-05-13 00:00:00 Completed [facility] SARS-COV-2 COVID-19 MODERNA 0.25ML BOOSTER VACCINE 2021-05-13 00:00:00 Completed [facility] SARS-COV-2 COVID-19 MODERNA 0.25ML BOOSTER VACCINE 2021-05-13 00:00:00 Completed [facility] SARS-COV-2 COVID-19 MODERNA 0.25ML BOOSTER VACCINE 2021-05-13 00:00:00 Completed [facility] SARS-COV-2 COVID-19 MODERNA 0.25ML BOOSTER VACCINE 2021-05-13 00:00:00 Completed [facility] SARS-COV-2 COVID-19 MODERNA 0.25ML BOOSTER VACCINE 2021-05-13 00:00:00 Completed [facility] SARS-COV-2 COVID-19 MODERNA 0.25ML BOOSTER VACCINE 2021-05-13 00:00:00 Completed [facility] SARS-COV-2 COVID-19 MODERNA 0.25ML BOOSTER VACCINE 2021-05-13 00:00:00 Completed [facility] SARS-COV-2 COVID-19 MODERNA 0.25ML BOOSTER VACCINE 2021-05-13 00:00:00 Completed [facility] SARS-COV-2 COVID-19 MODERNA 0.25ML BOOSTER VACCINE 2021-05-13 00:00:00 Completed [facility] SARS-COV-2 COVID-19 MODERNA 0.25ML BOOSTER VACCINE 2021-05-13 00:00:00 Completed [facility] SARS-COV-2 COVID-19 MODERNA BOOSTER VACCINE 2021-05-13 00:00:00 Completed [facility] SARS-COV-2 COVID-19 MODERNA 0.25ML BOOSTER VACCINE 2021-05-13 00:00:00 Completed [facility] SARS-COV-2 COVID-19 MODERNA BOOSTER VACCINE 2021-05-13 00:00:00 Completed [facility] SARS-COV-2 COVID-19 MODERNA BOOSTER VACCINE 2021-05-13 00:00:00 Completed [facility] SARS-COV-2 COVID-19 MODERNA 0.25ML BOOSTER VACCINE 2021-05-13 00:00:00 Completed [facility] SARS-COV-2 COVID-19 MODERNA VACCINE 2020-09-11 00:00:00 Completed [facility] SARS-COV-2 COVID-19 MODERNA 12+ YRS VACCINE 2020-09-11 00:00:00 Completed [facility] SARS-COV-2 COVID-19 MODERNA 12+ YRS VACCINE 2020-09-11 00:00:00 Completed [facility] SARS-COV-2 COVID-19 MODERNA 12+ YRS VACCINE 2020-09-11 00:00:00 Completed [facility] SARS-COV-2 COVID-19 MODERNA 12+ YRS VACCINE 2020-09-11 00:00:00 Completed [facility] SARS-COV-2 COVID-19 MODERNA 12+ YRS VACCINE 2020-09-11 00:00:00 Completed [facility] SARS-COV-2 COVID-19 MODERNA 12+ YRS VACCINE 2020-09-11 00:00:00 Completed [facility] SARS-COV-2 COVID-19 MODERNA 12+ YRS VACCINE 2020-09-11 00:00:00 Completed [facility] SARS-COV-2 COVID-19 MODERNA 12+ YRS VACCINE 2020-09-11 00:00:00 Completed [facility] SARS-COV-2 COVID-19 MODERNA 12+ YRS VACCINE 2020-09-11 00:00:00 Completed [facility] SARS-COV-2 COVID-19 MODERNA 12+ YRS VACCINE 2020-09-11 00:00:00 Completed [facility] SARS-COV-2 COVID-19 MODERNA 12+ YRS VACCINE 2020-09-11 00:00:00 Completed [facility] SARS-COV-2 COVID-19 MODERNA VACCINE 2020-09-11 00:00:00 Completed [facility] SARS-COV-2 COVID-19 MODERNA 12+ YRS VACCINE 2020-09-11 00:00:00 Completed [facility] SARS-COV-2 COVID-19 MODERNA VACCINE 2020-09-11 00:00:00 Completed [facility] SARS-COV-2 COVID-19 MODERNA VACCINE 2020-09-11 00:00:00 Completed [facility] SARS-COV-2 COVID-19 MODERNA 12+ YRS VACCINE 2020-09-11 00:00:00 Completed [facility] SARS-COV-2 COVID-19 MODERNA VACCINE 2020-08-14 00:00:00 Completed [facility] SARS-COV-2 COVID-19 MODERNA 12+ YRS VACCINE 2020-08-14 00:00:00 Completed [facility] SARS-COV-2 COVID-19 MODERNA 12+ YRS VACCINE 2020-08-14 00:00:00 Completed [facility] SARS-COV-2 COVID-19 MODERNA 12+ YRS VACCINE 2020-08-14 00:00:00 Completed [facility] SARS-COV-2 COVID-19 MODERNA 12+ YRS VACCINE 2020-08-14 00:00:00 Completed [facility] SARS-COV-2 COVID-19 MODERNA 12+ YRS VACCINE 2020-08-14 00:00:00 Completed [facility] SARS-COV-2 COVID-19 MODERNA 12+ YRS VACCINE 2020-08-14 00:00:00 Completed [facility] SARS-COV-2 COVID-19 MODERNA 12+ YRS VACCINE 2020-08-14 00:00:00 Completed [facility] SARS-COV-2 COVID-19 MODERNA 12+ YRS VACCINE 2020-08-14 00:00:00 Completed [facility] SARS-COV-2 COVID-19 MODERNA 12+ YRS VACCINE 2020-08-14 00:00:00 Completed [facility] SARS-COV-2 COVID-19 MODERNA 12+ YRS VACCINE 2020-08-14 00:00:00 Completed [facility] SARS-COV-2 COVID-19 MODERNA VACCINE 2020-08-14 00:00:00 Completed [facility] SARS-COV-2 COVID-19 MODERNA 12+ YRS VACCINE 2020-08-14 00:00:00 Completed [facility] SARS-COV-2 COVID-19 MODERNA 12+ YRS VACCINE 2020-08-14 00:00:00 Completed [facility] SARS-COV-2 COVID-19 MODERNA VACCINE 2020-08-14 00:00:00 Completed [facility] SARS-COV-2 COVID-19 MODERNA VACCINE 2020-08-14 00:00:00 Completed [facility] SARS-COV-2 COVID-19 MODERNA 12+ YRS VACCINE 2020-08-14 00:00:00 Completed [facility] TDAP 2013-10-23 00:00:00 Completed [facility] TDAP 2013-10-23 00:00:00 Completed [facility] TDAP 2013-10-23 00:00:00 Completed [facility] TDAP 2013-10-23 00:00:00 Completed [facility] TDAP 2013-10-23 00:00:00 Completed [facility] TDAP 2013-10-23 00:00:00 Completed [facility] TDAP 2013-10-23 00:00:00 Completed [facility] TDAP 2013-10-23 00:00:00 Completed [facility] TDAP 2013-10-23 00:00:00 Completed [facility] TDAP 2013-10-23 00:00:00 Completed [facility] TDAP 2013-10-23 00:00:00 Completed [facility] TDAP 2013-10-23 00:00:00 Completed [facility] TDAP 2013-10-23 00:00:00 Completed [facility] TDAP 2013-10-23 00:00:00 Completed [facility] TDAP 2013-10-23 00:00:00 Completed [facility] TDAP 2013-10-23 00:00:00 Completed [facility] TDAP 2013-10-23 00:00:00 Completed [facility] Pneumococcal Polysaccharide, PPSV23 (PNEUMOVAX) 2010-08-09 00:00:00 Completed [facility] Influenza Virus Vaccine 2010-08-09 00:00:00 Completed [facility] Pneumococcal Polysaccharide, PPSV23 (PNEUMOVAX) 2010-08-09 00:00:00 Completed [facility] Influenza Virus Vaccine 2010-08-09 00:00:00 Completed [facility] Pneumococcal Polysaccharide, PPSV23 (PNEUMOVAX) 2010-08-09 00:00:00 Completed [facility] Influenza Virus Vaccine 2010-08-09 00:00:00 Completed [facility] Pneumococcal Polysaccharide, PPSV23 (PNEUMOVAX) 2010-08-09 00:00:00 Completed [facility] Influenza Virus Vaccine 2010-08-09 00:00:00 Completed [facility] Pneumococcal Polysaccharide, PPSV23 (PNEUMOVAX) 2010-08-09 00:00:00 Completed [facility] Influenza Virus Vaccine 2010-08-09 00:00:00 Completed [facility] Pneumococcal Polysaccharide, PPSV23 (PNEUMOVAX) 2010-08-09 00:00:00 Completed [facility] Influenza Virus Vaccine 2010-08-09 00:00:00 Completed [facility] Pneumococcal Polysaccharide, PPSV23 (PNEUMOVAX) 2010-08-09 00:00:00 Completed [facility] Influenza Virus Vaccine 2010-08-09 00:00:00 Completed [facility] Pneumococcal Polysaccharide, PPSV23 (PNEUMOVAX) 2010-08-09 00:00:00 Completed [facility] Influenza Virus Vaccine 2010-08-09 00:00:00 Completed [facility] Pneumococcal Polysaccharide, PPSV23 (PNEUMOVAX) 2010-08-09 00:00:00 Completed [facility] Influenza Virus Vaccine 2010-08-09 00:00:00 Completed [facility] Pneumococcal Polysaccharide, PPSV23 (PNEUMOVAX) 2010-08-09 00:00:00 Completed [facility] Influenza Virus Vaccine 2010-08-09 00:00:00 Completed [facility] Pneumococcal Polysaccharide, PPSV23 (PNEUMOVAX) 2010-08-09 00:00:00 Completed [facility] Influenza Virus Vaccine 2010-08-09 00:00:00 Completed [facility] Pneumococcal Polysaccharide, PPSV23 (PNEUMOVAX) 2010-08-09 00:00:00 Completed [facility] Influenza Virus Vaccine 2010-08-09 00:00:00 Completed [facility] Pneumococcal Polysaccharide, PPSV23 (PNEUMOVAX) 2010-08-09 00:00:00 Completed [facility] Influenza Virus Vaccine 2010-08-09 00:00:00 Completed [facility] Pneumococcal Polysaccharide, PPSV23 (PNEUMOVAX) 2010-08-09 00:00:00 Completed [facility] Influenza Virus Vaccine 2010-08-09 00:00:00 Completed [facility] Pneumococcal Polysaccharide, PPSV23 (PNEUMOVAX) 2010-08-09 00:00:00 Completed [facility] Influenza Virus Vaccine 2010-08-09 00:00:00 Completed [facility] Pneumococcal Polysaccharide, PPSV23 (PNEUMOVAX) 2010-08-09 00:00:00 Completed [facility] Influenza Virus Vaccine 2010-08-09 00:00:00 Completed [facility] Pneumococcal Polysaccharide, PPSV23 (PNEUMOVAX) 2010-08-09 00:00:00 Completed [facility] Influenza Virus Vaccine 2010-08-09 00:00:00 Completed Pneumococcal Polysaccharide, PPSV23 (PNEUMOVAX) Unknown Completed [facility] Influenza Virus Vaccine Unknown Completed [facility] TDAP Unknown Completed [facility] SARS-COV-2 COVID-19 MODERNA 12+ YRS VACCINE Unknown Completed [facility] SARS-COV-2 COVID-19 MODERNA 0.25ML BOOSTER VACCINE Unknown Completed [facility] Pneumococcal Polysaccharide, PPSV23 (PNEUMOVAX) Unknown Completed [facility] Influenza Virus Vaccine Unknown Completed [facility] TDAP Unknown Completed [facility] SARS-COV-2 COVID-19 MODERNA 12+ YRS VACCINE Unknown Completed [facility] SARS-COV-2 COVID-19 MODERNA 0.25ML BOOSTER VACCINE Unknown Completed [facility] Pneumococcal Polysaccharide, PPSV23 (PNEUMOVAX) Unknown Completed [facility] Influenza Virus Vaccine Unknown Completed [facility] TDAP Unknown Completed [facility] SARS-COV-2 COVID-19 MODERNA 12+ YRS VACCINE Unknown Completed [facility] SARS-COV-2 COVID-19 MODERNA 0.25ML BOOSTER VACCINE Unknown Completed [facility] Pneumococcal Polysaccharide, PPSV23 (PNEUMOVAX) Unknown Completed [facility] Influenza Virus Vaccine Unknown Completed [facility] TDAP Unknown Completed [facility] SARS-COV-2 COVID-19 MODERNA 12+ YRS VACCINE Unknown Completed [facility] SARS-COV-2 COVID-19 MODERNA 0.25ML BOOSTER VACCINE Unknown Completed [facility] Pneumococcal Polysaccharide, PPSV23 (PNEUMOVAX) Unknown Completed [facility] Influenza Virus Vaccine Unknown Completed [facility] TDAP Unknown Completed [facility] SARS-COV-2 COVID-19 MODERNA 12+ YRS VACCINE Unknown Completed [facility] SARS-COV-2 COVID-19 MODERNA 0.25ML BOOSTER VACCINE Unknown Completed [facility] Pneumococcal Polysaccharide, PPSV23 (PNEUMOVAX) Unknown Completed [facility] Influenza Virus Vaccine Unknown Completed [facility] TDAP Unknown Completed [facility] SARS-COV-2 COVID-19 MODERNA 12+ YRS VACCINE Unknown Completed [facility] SARS-COV-2 COVID-19 MODERNA 0.25ML BOOSTER VACCINE Unknown Completed [facility] Pneumococcal Polysaccharide, PPSV23 (PNEUMOVAX) Unknown Completed [facility] Influenza Virus Vaccine Unknown Completed [facility] TDAP Unknown Completed [facility] SARS-COV-2 COVID-19 MODERNA 12+ YRS VACCINE Unknown Completed [facility] SARS-COV-2 COVID-19 MODERNA 0.25ML BOOSTER VACCINE Unknown Completed [facility] Pneumococcal Polysaccharide, PPSV23 (PNEUMOVAX) Unknown Completed [facility] Influenza Virus Vaccine Unknown Completed [facility] TDAP Unknown Completed [facility] SARS-COV-2 COVID-19 MODERNA 12+ YRS VACCINE Unknown Completed [facility] SARS-COV-2 COVID-19 MODERNA 0.25ML BOOSTER VACCINE Unknown Completed [facility] Pneumococcal Polysaccharide, PPSV23 (PNEUMOVAX) Unknown Completed [facility] Influenza Virus Vaccine Unknown Completed [facility] TDAP Unknown Completed [facility] SARS-COV-2 COVID-19 MODERNA 12+ YRS VACCINE Unknown Completed [facility] SARS-COV-2 COVID-19 MODERNA 0.25ML BOOSTER VACCINE Unknown Completed [facility] Pneumococcal Polysaccharide, PPSV23 (PNEUMOVAX) Unknown [facility] Influenza Virus Vaccine Unknown Completed [facility] TDAP Unknown Completed [facility] SARS-COV-2 COVID-19 MODERNA 12+ YRS VACCINE Unknown Completed [facility] SARS-COV-2 COVID-19 MODERNA 0.25ML BOOSTER VACCINE Unknown Completed [facility] Pneumococcal Polysaccharide, PPSV23 (PNEUMOVAX) Unknown Completed [facility] Influenza Virus Vaccine Unknown Completed [facility] TDAP Unknown Completed [facility] SARS-COV-2 COVID-19 MODERNA 12+ YRS VACCINE Unknown Completed [facility] SARS-COV-2 COVID-19 MODERNA 0.25ML BOOSTER VACCINE Unknown Completed [facility] Pneumococcal Polysaccharide, PPSV23 (PNEUMOVAX) Unknown Completed [facility] Influenza Virus Vaccine Unknown Completed [facility] TDAP Unknown Completed [facility] SARS-COV-2 COVID-19 MODERNA 12+ YRS VACCINE Unknown Completed [facility] SARS-COV-2 COVID-19 MODERNA 0.25ML BOOSTER VACCINE Unknown Completed [facility] Pneumococcal Polysaccharide, PPSV23 (PNEUMOVAX) Unknown Completed [facility] Influenza Virus Vaccine Unknown Completed [facility] TDAP Unknown Completed [facility] SARS-COV-2 COVID-19 MODERNA 12+ YRS VACCINE Unknown Completed [facility] SARS-COV-2 COVID-19 MODERNA 0.25ML BOOSTER VACCINE Unknown Completed [facility] Pneumococcal Polysaccharide, PPSV23 (PNEUMOVAX) Unknown Completed [facility] Influenza Virus Vaccine Unknown Completed [facility] TDAP Unknown Completed [facility] SARS-COV-2 COVID-19 MODERNA 12+ YRS VACCINE Unknown Completed [facility] SARS-COV-2 COVID-19 MODERNA 0.25ML BOOSTER VACCINE Unknown Completed [facility] Pneumococcal Polysaccharide, PPSV23 (PNEUMOVAX) Unknown Completed [facility] Influenza Virus Vaccine Unknown Completed [facility] TDAP Unknown Completed [facility] SARS-COV-2 COVID-19 MODERNA 12+ YRS VACCINE Unknown Completed [facility] SARS-COV-2 COVID-19 MODERNA 0.25ML BOOSTER VACCINE Unknown Completed [facility] Pneumococcal Polysaccharide, PPSV23 (PNEUMOVAX) Unknown Completed [facility] Influenza Virus Vaccine Unknown Completed [facility] TDAP Unknown Completed [facility] SARS-COV-2 COVID-19 MODERNA 12+ YRS VACCINE Unknown Completed [facility] SARS-COV-2 COVID-19 MODERNA 0.25ML BOOSTER VACCINE Unknown Completed [facility] Vital Signs Vital Name Observation Time Observation Value Comments Mary pendleton Systolic blood pressure 2023-12-10 22:15:00 157 mm[Hg] [facility] Diastolic blood pressure 2023-12-10 22:15:00 72 mm[Hg] [facility] Heart rate 2023-12-10 22:15:00 74 /min [facility] Respiratory rate 2023-12-10 22:15:00 16 /min [facility] Oxygen saturation in Arterial blood by Pulse oximetry 2023-12-10 22:15:00 97 /min [facility] Body height 2023-12-10 16:22:26 172.7 cm [facility] Body weight 2023-12-10 14:00:00 87.544 kg [facility] BMI 2023-12-10 14:00:00 29.35 kg/m2 [facility] Systolic blood pressure 2023-12-10 16:55:19 131 mm[Hg] [facility] Diastolic blood pressure 2023-12-10 16:55:19 68 mm[Hg] [facility] Respiratory rate 2023-12-10 16:55:19 20 /min [facility] Oxygen saturation in Arterial blood by Pulse oximetry 2023-12-10 16:55:19 97 /min [facility] Heart rate 2023-12-10 16:32:00 82 /min [facility] Body height 2023-12-10 16:22:26 172.7 cm [facility] Body weight 2023-12-10 14:00:00 87.544 kg [facility] BMI 2023-12-10 14:00:00 29.35 kg/m2 [facility] Systolic blood pressure 2023-11-08 13:09:00 200 mm[Hg] [facility] Diastolic blood pressure 2023-11-08 13:09:00 105 mm[Hg] [facility] Heart rate 2023-11-08 13:09:00 75 /min [facility] Body temperature 2023-11-08 13:09:00 35.67 [place] [facility] Respiratory rate 2023-11-08 13:09:00 18 /min [facility] Body height 2023-11-08 13:09:00 172.7 cm [facility] Body weight 2023-11-08 13:09:00 87.952 kg [facility] BMI 2023-11-08 13:09:00 29.48 kg/m2 [facility] Oxygen saturation in Arterial blood by Pulse oximetry 2023-11-08 13:09:00 99 /min [facility] Systolic blood pressure 2023-10-20 16:09:00 179 mm[Hg] [facility] Diastolic blood pressure 2023-10-20 16:09:00 90 mm[Hg] [facility] Heart rate 2023-10-20 16:09:00 73 /min [facility] Oxygen saturation in Arterial blood by Pulse oximetry 2023-10-20 16:09:00 98 /min [facility] Respiratory rate 2023-10-20 16:05:00 16 /min [facility] Body height 2023-10-20 16:05:00 172.7 cm [facility] Body weight 2023-10-20 16:05:00 85.866 kg [facility] BMI 2023-10-20 16:05:00 28.78 kg/m2 [facility] Systolic blood pressure 2023-07-13 20:25:00 166 mm[Hg] [facility] Diastolic blood pressure 2023-07-13 20:25:00 101 mm[Hg] [facility] Heart rate 2023-07-13 20:25:00 101 /min [facility] Oxygen saturation in Arterial blood by Pulse oximetry 2023-07-13 20:25:00 98 /min [facility] Respiratory rate 2023-07-13 20:23:00 17 /min [facility] Body height 2023-07-13 20:23:00 172.7 cm [facility] Body weight 2023-07-13 20:23:00 87.363 kg [facility] BMI 2023-07-13 20:23:00 29.28 kg/m2 [facility] Procedures Procedure Date / Time Performed Performing Clinician Source CT [facility]ORAX WO CONTRAST 2023-12-10 [facility] CATH PROCEDURE LOG 2023-12-10 18:03:14 [facility] CATH PROCEDURE LOG 2023-12-10 18:03:14 [facility] CARDIAC CATHETERIZATION 2023-12-10 17:40:00 [facility] CARDIAC CATHETERIZATION 2023-12-10 17:40:00 [facility] BASIC METABOLIC PANEL (NA, K, CL, CO2, GLUCOSE, BUN, CREATININE, CA) 2023-12-10 14:36:00 [facility] CBC WITH DIFF 2023-12-10 14:36:00 [facility] GLYCOSYLATED HEMOGLOBIN (A1C) 2023-12-10 14:36:00 [facility] PROTHROMBIN TIME / INR 2023-12-10 14:36:00 Graciela Mojica faq [facility] BASIC METABOLIC PANEL (NA, K, CL, CO2, GLUCOSE, BUN, CREATININE, CA) 2023-12-10 14:36:00 [facility] CBC WITH DIFF 2023-12-10 14:36:00 [facility] GLYCOSYLATED HEMOGLOBIN (A1C) 2023-12-10 14:36:00 [facility] PROTHROMBIN TIME / INR 2023-12-10 14:36:00 Graciela Mojica faq [facility] INSURANCE CORRESPONDENCE 2023-07-26 06:01:00 Doc tor Unassigned, [place] [facility] HB ECG ROUTINE & RHYTHM STRIP 2023-07-13 20:24:48 ScottStuartdrea [facility] CONSENT/REFUSAL FOR DIAGNOSIS AND TREATMENT 2023-07-13 20:12:01 Doctor Unassigned, [place] [facility] INSURANCE CORRESPONDENCE 2023-06-14 06:01:00 Doc daniel Unassigned, [place] [facility] ASSIGNMENT OF BENEFITS 2022-07-23 23:27:01 Docconsuelo evans Unassigned, [place] [facility] INSURANCE CORRESPONDENCE 2022-07-09 06:01:00 Doc tor Unassigned, [place] [facility] SARS-COV-2 COVID-19 VACCINE BOOSTER,0.25ML,IM (MODERNA) 2021-12-17 18:43:07 Doctor Unassigned, [place] [facility] ASSIGNMENT OF BENEFITS 2021-07-17 15:51:36 Docconsuelo evans Unassigned, [place] [facility] Encounters Start Date/Time End Date/Time Encounter Type Admission Type Attending [facility] Facility Care Department Encounter ID Source 2018-10-12 09:04:30 Inpatient [facility] [id number] [facility] 2024-03-31 00:00:00 2024-03-31 11:38:38 Letter (Out) Forrest Chan [facility] 1..840.114 350.1.13.10 4.2.7.2.686 [id number] [facility] 2024-03-27 08:30:00 2024-03-27 08:30:00 Outpatient OPAL MEYER [facility] [id number] [facility] 2023-12-17 00:00:00 2023-12-28 09:56:54 Telephone Adam CampuzanoNIE [facility] 1..840.114 350.1.13.10 4.2.7.2.686 [id number] [facility] 2023-12-17 00:00:00 2023-12-17 09:33:55 Letter (Out) [facility] , Cardiovascu lar [facility] 1.2.840.114 350.1.13.10 4.2.7.2.686 [id number] [facility] 2023-12-10 08:46:00 2023-12-10 17:30:00 Outpatient R OPAL MOJICA [facility] [id number] [facility] 2023-12-10 08:46:00 2023-12-10 17:30:00 Hospital Encounter [facility] 1.2.840.114 350.1.13.10 4.2.7.2.686 [id number] [facility] 2023-12-10 11:00:00 2023-12-10 12:00:00 Surgery [facility] 1.2.840.114 350.1.13.10 4.2.7.2.686 [id number] [facility] 2023-11-16 00:00:00 2023-11-16 11:03:01 Telephone [facility] 1.2.840.114 350.1.13.10 4.2.7.2.686 [id number] [facility] 2023-11-08 00:00:00 2023-11-09 10:58:11 Telephone [facility] 1.2.840.114 350.1.13.10 4.2.7.2.686 [id number] [facility] 2023-11-08 08:00:00 2023-11-08 09:09:48 Outpatient R YUNIOR [facility] [id number] [facility] 2023-11-08 08:00:00 2023-11-08 09:09:48 [facility] 1.2.840.114 350.1.13.10 4.2.7.2.686 [id number] [facility] 2023-10-20 11:00:00 2023-10-20 11:24:30 [facility] [id number] [facility] 2023-10-20 11:00:00 2023-10-20 11:24:30 Office Visit [facility] BUILDING 1.2.840.114 350.1.13.10 4.2.7.2.686 [id number] [facility] 2023-10-11 10:40:00 2023-10-11 10:40:00 [facility] [id number] [facility] 2023-09-23 00:00:00 2023-09-23 00:00:00 Telephone [facility] BUILDING 1.2.840.114 350.1.13.10 4.2.7.2.686 [id number] [facility] 2023-09-22 16:00:00 2023-09-22 16:00:00 Outpatient R EDEL ESCALANTE [facility]ID[facility] [id number] [facility] 2023-09-09 00:00:00 2023-09-09 00:00:00 [facility] 1.2.840.114 350.1.13.10 4.2.7.2.686 [id number] [facility] 2023-09-07 15:22:00 2023-09-07 23:59:00 Hospital Encounter Scott [facility] BUILDING 1.2.840.114 350.1.13.10 4.2.7.2.686 [id number] [facility] 2023-09-07 15:00:00 2023-09-07 15:21:00 Out[facility] [id number] [facility] 2023-09-07 14:42:36 2023-09-07 15:21:00 Hospital Encounter Scott [facility] 1.2.840.114 350.1.13.10 4.2.7.2.686 [id number] [facility] 2023-08-10 15:00:00 2023-08-10 15:00:00 Outpatient R SCOTT [facility] [id number] [facility] 2023-07-29 14:00:00 2023-07-29 14:00:00 Outpatient R SCOTT [facility] [id number] [facility] 2023-07-26 00:00:00 2023-07-26 00:00:00 Orders Only Doctor Unassigned, [place] [facility] 1.840.114 350.1.13.10 4.2.7.2.686 [id number] [facility] 2023-07-13 14:20:00 2023-07-13 14:52:41 Outpatient R SCOTT [facility] [id number] [facility] 2023-07-13 14:20:00 2023-07-13 14:52:41 Office Visit Scott [facility] 1.2.840.114 350.1.13.10 4.2.7.2.686 [id number] [facility] 2023-07-13 00:00:00 2023-07-13 00:00:00 Orders Only Doctor Unassigned, [place] [facility] 1.2.840.114 350.1.13.10 4.2.7.2.686 [id number] [facility] 2023-06-14 00:00:00 2023-06-14 00:00:00 Orders Only Doctor Unassigned, [place] [facility] 1.2.840.114 350.1.13.10 4.2.7.2.686 [id number] [facility] 2022-09-25 00:00:00 2022-09-25 00:00:00 Telephone Gamilla-Cru , Sarai N [facility] 1.2.840.114 350.1.13.10 4.2.7.2.686 [id number] [facility] 2022-09-22 00:00:00 2022-09-22 00:00:00 Letter (Out) Inder Mar [facility] 1.2.840.114 350.1.13.10 4.2.7.2.686 [id number] [facility] 2022-09-21 00:00:00 2022-09-21 00:00:00 Telephone Gamilla-Cru , Sar[facility] 1.2.840.114 350.1.13.10 4.2.7.2.686 [id number] [facility] 2022-09-21 00:00:00 2022-09-21 00:00:00 Telephone SGBilla-Cru , Sarai [facility] 1.2.840.114 350.1.13.10 4.2.7.2.686 [id number] [facility] 2022-09-17 00:00:00 2022-09-17 00:00:00 Telephone Gamilla-Cru do, Sarai [facility] 1.2.840.114 350.1.13.10 4.2.7.2.686 [id number] [facility] 2022-09-16 00:00:00 2022-09-16 00:00:00 Telephone Kamille Barajas [facility] 1..114 350.1.13.10 4.2.7.2.686 [id number] [facility] 2022-09-14 00:00:00 2022-09-14 00:00:00 [facility] 1.114 350.1.13.10 4.2.7.2.686 [id number] [facility] 2022-07-31 15:15:00 2022-07-31 15:15:00 Outpatient MEREDITH MOHAMUD [facility] [id number] [facility] 2022-07-29 00:00:00 2022-07-29 00:00:00 Telephone Provider, [facility] BUILD[facility] 1.114 350.1.13.10 4.2.7.2.686 [id number] [facility] 2022-07-24 00:00:00 2022-07-24 00:00:00 Letter (Out) Evert Posada [facility] 1.114 350.1.13.10 4.2.7.2.686 [id number] [facility] 2022-07-23 17:15:00 2022-07-23 17:30:00 Laboratory Only Only, Ang Db Test Unknown, Attending [facility] OFF[facility] BUILDING 1.114 350.1.13.10 4.2.7.2.686 [id number] [facility] 2022-07-23 17:15:00 2022-07-23 17:15:00 Outpatient BUTCH KEY III [facility] [id number] [facility] 2022-07-23 00:00:00 2022-07-23 00:00:00 Orders Only Doctor Unassigned, [place] [facility] 1.2.840.114 350.1.13.10 4.2.7.2.686 [id number] [facility] 2022-07-09 00:00:00 2022-07-09 00:00:00 Orders Only Doctor Unassigned, [place] [facility] 1.2.840.114 350.1.13.10 4.2.7.2.686 [id number] [facility] 2021-12-17 14:00:00 2021-12-17 14:10:00 Imm/Inj Visit Vaccine, [facility] Cornelio Lambert [facility] 1..840.114 350.1.13.10 4.2.7.2.686 [id number] [facility] 2021-12-17 14:00:00 2021-12-17 14:00:00 Outpatient CORNELIO ANDRADE [facility] [id number] [facility] 2021-07-17 09:45:00 2021-07-17 10:00:00 Laboratory Only Only, [facility] 1..840.114 350.1.13.10 4.2.7.2.686 [id number] [facility] 2021-07-17 09:45:00 2021-07-17 09:45:00 Outpatient Jono PAK EILEEN [facility] [id number] [facility] 2021-07-17 09:15:00 2021-07-17 09:15:00 Outpatient Jono PAK EILEEN [facility] [id number] [facility] 2021-07-17 00:00:00 2021-07-17 00:00:00 Letter (Out) Doctor Unassigned, [place] [facility] 1.2.840.114 350.1.13.10 4.2.7.2.686 [id number] [facility] 2021-07-17 00:00:00 2021-07-17 00:00:00 Orders Only Doctor Unassigned, [place] [facility] 1.2.840.114 350.1.13.10 4.2.7.2.686 [id number] [facility] 2019-01-27 07:07:00 2019-01-27 07:07:00 Outpatient [id number] 2019-01-26 13:47:00 2019-01-26 13:47:00 Outpatient [id number] 2018-11-11 08:17:00 2018-11-11 08:17:00 Outpatient [id number] 2018-10-05 07:19:00 2018-10-05 07:19:00 Outpatient [id number] Results Test Description Test Time Test Comments Results Result Comments Source CT THORAX WO CONTRAST 2023-12 03:49:0 5 PROCEDURE: CT CHEST WITHOUT CONTRAST - CHEST PROTOCOL CLINICAL INDICATION: 63 years-old Male; PMH of PAD, VHD, ESRD, DM-2, HTN,HLD, vision loss who p/w SOB. TTE showed severe and severe MS. Reasonfor exam states "Chest pain, nonspecific". Comparison: Chest radiograph dated 10/04/2013 TECHNIQUE: Volumetric images of the chest were acquired (from lung apicesto bases).Images were reconstructed at 2.5 mm slice thickness. MIP axialimages, coronal and sagittal reformats were also submitted forinterpretation. FINDINGS: LUNGS AND PLEURA: Normal lung volumes. Respiratory motion limits evaluationthe findings. Mid to lower lung band atelectasis in the degree ofreticulation/distortion, likely due to postinflammatory scarring. No focal opacities are identified. Less than 4 mm scattered solid nodules,annotated on series 301, one of the largest in the left lower lobe imageimage 71 series 301. No dominant discrete nodules. Calcified granuloma inthe right middle lobe. A few lymph nodes along the right major and minorfissures. No pleural abnormalities detected. LYMPH NODES: Multi stationary lymphadenopathy including lower cervical,paratracheal, prevascular, and bilateral hilar stations. One of the largestnodes in the right lower paratracheal station up to 14 mm, howevercontaining fatty alisha. Right infrahilar nodes are at least 11 mm. Calcifiedsmall lymph nodes in the left hilum MEDIASTINUM AND LOWER NECK: No central airway lesions are detected.Patulous esophagus with mild circumferential thickening of the distalesophagus and a small hiatal hernia. The included thyroid gland is slightlynodular with a small hypodense subcentimeter focus in the posterior leftlobe and eccentric minimal calcification. HEART AND GREAT VESSELS: Borderline heart size. Trace pericardialeffusion/thickening . Severe mitral and aortic valve and annularcalcifications. There are severe calcifications of the coronary vessels involving all 3vessels. The thoracic aorta is normal in caliber, with moderate to severeatherosclerotic plaque. Common origin of the brachiocephalic and leftcommon carotid artery. The pulmonary trunk measures 3.8 cm. Some of the central pulmonary arteriesdemonstrate calcified coppola. VISUALIZED UPPER ABDOMEN: Nonspecific bilateral adrenal gland diffusethickness. Nonspecific perinephric fat stranding. Bilateral renal atrophy. OSSEOUS STRUCTURES AND SOFT TISSUES: Moderate compression deformities atT4, T6, T10 and more severe at T7 and T8 with widening of the correspondingintervertebral discs. This changes were not evident in the previous chestradiograph dated 10/04/2013 Small benign-appearing lucent area along the lateral aspect of the lefteighth rib with surrounding sclerosis, benign. No other suspicious osseouslesions. The soft tissues appear normal. A few collateral vessels are noted along the anterior chest wall.Attenuated right innominate vein and medial left innominate vein near theSVC junction containing punctate calcifications. [facility] (A1C)2023-12-10 20:25:55* Test Item Value Reference Range Interpretation Comme nts HGB A1C (test code = 4548-4) 5.7 % 4.0-5.7 AZAM (test code = AZAM) Reference RangesNormal: <5.7%Prediabetes: 5.7 - 6.4%Diabetes: > 6.5% Lab Interpretation (test code = 10207-9) Normal [facility] [id number] 19:54:11? ?Right/Left Heart Cath/Coronary Angiography Date of Service: 12/10/2023 ?1:02 PM Indication/Diagnosis: 63 y M with PMH of PAD, VHD, ESRD, DM-2, HTN, HLD, vision loss who p/w SOB. TTE showed severe ASand severe MS. Fellow: Dr Ashwin Canales Time out completed: yes Aseptic technique: Chlorprep Local Anesthesia: 1% lidocaine without epinephrine Sedation: fentanyl 50 mcg, Versed 2 mg Access site: RFA, RFV Closure Method: Manual Compression and Mynx Complications: none Findings: Right Heart Catheterization: RA RV 86/0/14PA 78/33/51PCWP // RA 69 sat %PA sat 66 % CO/CI (Ezekiel): 6.73 /3.34CO/CI (Thermodilution): 5.03/2.5 MS study (PCWP/LV)MG 14.1, MVA 2 studyMG 68 DANIELA 0.72 Coronary dominance: right Left main: Angiographically normal LAD: Prox LAD 80% (calcified nodule) Mid LAD50% D1: Mild athero LCX: Mild athero OM1: Ostial 50% OM2: Mild athero LPL 1/2/3: Mild athero RCA: Mid RCA 50- 60% diffuse PDA: Mild athero LVEDP: 16 - 20 Right External Iliac angiogram: CHICLE GRINDER FEEDER mod calcified disease Procedure Details: RHC 7 Fr RFVTD swan LHC6 Fr RFA5 Fr Jr4 to LV (LVEDP and pullback across aortic valve), 6 Fr [place] MS study (Wedge/LV) study (LV/AO) 5 Fr JR4 to RCA5 Fr JL4 to LM Mynx. 62 cc contrast Post-Procedure Sedation AddendumImmediately prior to start of sedation, the linsey ent was evaluated and there was no change from the pre-procedure evaluation. I was present and directed medical care.The patient underwent moderate sedation ?for the procedure. The medications administered were recorded in the MAR; oxygenation, ventilation and circulation were monitored continuously and were recorded in the EMR. I evaluated the patient after the procedure.The patient was evaluated immediately as recovering from sedation. Complications: none Impression:Prox LAD 80% (calcified nodule)Severe (MG 68, DANIELA 0.72)Mildly elevated left and right sided filling pressuresSevere PHNormal cardiac index Plan:Bedrest 4 hoursAggressive medical RxConsult CV surgery for CABG (MARTÍNEZ) + SAVRIfnot a candidate for surgery, will plan for PCI of LAD with rotational atherectomy followed by TAVIFindings and plan discussed with pt and primary team as well as ?CV surgery (DR Hyman). I performed this procedure and supervised the fellow. I was present for the entire duration of the procedure. MD [facility]UnHouston [facility] HospitalProthrombin Time / [id number] 15:55:49* Test Item Value Reference Range Interpretation Comme nts PROTIME PATIENT (test code = 5964-2) 12.5 10.1-12.6 INR (test code = 6301-6) 1.1 Normal INR <1.1; Warfarin Therapeutic range 2.0 to 3.0 or 2.5 to 3.5, depending upon the indications. Lab Interpretation (test code = 72953-3) Normal [facility] Time / [id number] 15:55:49* Test Item Value Reference Range Interpretation Comme nts PROTIME PATIENT (test code = 5964-2) 12.5 10.1-12.6 INR (test code = 6301-6) 1.1 Normal INR <1.1; Warfarin Therapeutic range 2.0 to 3.0 or 2.5 to 3.5, depending upon the indications. Lab Interpretation (test code = 29394-8) Normal [facility] Met[facility] Panel (NA, K, CL, CO2, GLUCOSE, BUN, CREATININE, CA)2023-12-10 15:34:28* Test Item Value Reference Range Interpretation Comme nts NA (test code = 4204782888) 141 mmol/L 135-145 K (test code = 3634869342) 4.9 mmol/L 3.5-5.0 CL (test code = 0017884992) 99 mmol/L 98-108 CO2 TOTAL (test code = 9504025362) 32 mmol/L 23-31 H AGAP (test code = 7925442625) 10 2-16 BUN (test code = 7073365284) 40 mg/dL 7-23 H GLUCOSE (test code = 2182810241) 115 mg/dL 70-110 H CREATININE (test code = 2160-0) 8.23 mg/dL 0.60-1.25 H CALCIUM (test code = 0644568517) 8.1 mg/dL 8.6-10.6 L eGFR (test code = 46333-7) 6.8 mL/min/1.73m2 CKD-EPI eGFR (2020). Assuming creatinine has been stable day-to-day for at least three months, the eGFR indicates Category G5 (<= 14mL/min/1.73 m2) Lab Interpretation (test code = 28187-4) Abnormal [facility] Metabolic Panel (NA, K, CL, CO2, GLUCOSE, BUN, CREATININE, CA)2023-12-10 15:34:28* Test Item Value Reference Range Interpretation Comme nts NA (test code = 1539186760) 141 mmol/L 135-145 K (test code = 5572212115) 4.9 mmol/L 3.5-5.0 CL (test code = 5900671061) 99 mmol/L 98-108 CO2 TOTAL (test code = 1833071529) 32 mmol/L 23-31 H AGAP (test code = 9840819902) 10 2-16 BUN (test code = 1752180285) 40 mg/dL 7-23 H GLUCOSE (test code = 2621162370) 115 mg/dL 70-110 H CREATININE (test code = 2160-0) 8.23 mg/dL 0.60-1.25 H CALCIUM (test code = 7240174718) 8.1 mg/dL 8.6-10.6 L eGFR (test code = 42227-3) 6.8 mL/min/1.73m2 CKD-EPI eGFR (2020). Assuming creatinine has been stable day-to-day for at least three months, the eGFR indicates Category G5 (<= 14mL/min/1.73 m2) Lab Interpretation (test code = 93436-1) Abnormal [facility] with [id number] 15:12:30* Test Item Value Reference Range Interpretation Comme nts WBC (test code = 6690-2) 8.34 4.20-10.70 RBC (test code = 789-8) 3.86 4.26-5.52 L HGB (test code = 718-7) 11.7 g/dL 12.2-16.4 L HCT (test code = 4544-3) 36.7 % 38.4-49.3 L MCV (test code = 787-2) 95.1 fL 81.7-95.6 MCH (test code = 785-6) 30.3 pg 26.1-32.7 MCHC (test code = 786-4) 31.9 g/dL 31.2-35.0 RDW-SD (test code = 99921-6) 49.1 fL 38.5-51.6 RDW-CV (test code = 788-0) 14.0 % 12.1-15.4 PLT (test code = 777-3) 210 150-328 MPV (test code = 77089-7) 11.5 fL 9.8-13.0 NRBC/100 WBC (test code = 5806688628) 0.0 0.0-10.0 NRBC x10^3 (test code = 2157751618) See_Comment [Automated messa ge] The system which generated this result transmitted reference range: 10*3/?L. The reference range was not used to interpret this result as normal/abnormal. GRAN MAT (NEUT) % (test code = 770-8) 70.7 % IMM GRAN % (test code = 4899425813) 0.50 % LYMPH % (test code = 736-9) 15.6 % MONO % (test code = 5905-5) 9.8 % EOS % (test code = 713-8) 2.6 % BASO % (test code = 706-2) 0.8 % GRAN MAT x10^3(ANC) (test code = 8407544013) 5.89 10*3/uL 1.99-6.95 IMM GRAN x10^3 (test code = 8375839842) 0.04 10*3/uL 0.00-0.06 LYMPH x10^3 (test code = 731-0) 1.30 10*3/uL 1.09-3.23 MONO x10^3 (test code = 742-7) 0.82 10*3/uL 0.36-1.02 EOS x10^3 (test code = 711-2) 0.22 10*3/uL 0.06-0.53 BASO x10^3 (test code = 704-7) 0.07 10*3/uL 0.01-0.09 Lab Interpretation (test code = 55019-9) Abnormal [facility] with [id number] 15:12:30* Test Item Value Reference Range Interpretation Comme nts WBC (test code = 6690-2) 8.34 4.20-10.70 RBC (test code = 789-8) 3.86 4.26-5.52 L HGB (test code = 718-7) 11.7 g/dL 12.2-16.4 L HCT (test code = 4544-3) 36.7 % 38.4-49.3 L MCV (test code = 787-2) 95.1 fL 81.7-95.6 MCH (test code = 785-6) 30.3 pg 26.1-32.7 MCHC (test code = 786-4) 31.9 g/dL 31.2-35.0 RDW-SD (test code = 40341-8) 49.1 fL 38.5-51.6 RDW-CV (test code = 788-0) 14.0 % 12.1-15.4 PLT (test code = 777-3) 210 150-328 MPV (test code = 62227-1) 11.5 fL 9.8-13.0 NRBC/100 WBC (test code = 5993966694) 0.0 0.0-10.0 NRBC x10^3 (test code = 4905269487) See_Comment [Automated messa ge] The system which generated this result transmitted reference range: 10*3/?L. The reference range was not used to interpret this result as normal/abnormal. GRAN MAT (NEUT) % (test code = 770-8) 70.7 % IMM GRAN % (test code = 0108735794) 0.50 % LYMPH % (test code = 736-9) 15.6 % MONO % (test code = 5905-5) 9.8 % EOS % (test code = 713-8) 2.6 % BASO % (test code = 706-2) 0.8 % GRAN MAT x10^3(ANC) (test code = 1876353926) 5.89 10*3/uL 1.99-6.95 IMM GRAN x10^3 (test code = 9486271104) 0.04 10*3/uL 0.00-0.06 LYMPH x10^3 (test code = 731-0) 1.30 10*3/uL 1.09-3.23 MONO x10^3 (test code = 742-7) 0.82 10*3/uL 0.36-1.02 EOS x10^3 (test code = 711-2) 0.22 10*3/uL 0.06-0.53 BASO x10^3 (test code = 704-7) 0.07 10*3/uL 0.01-0.09 Lab Interpretation (test code = 50831-4) Abnormal [facility] History and Physical Notes Date/Time Note Provider Source 2023-12-10 10:54:11 Pre-Procedure Sedation Evaluation HPI 63 y M with PMH of PAD follows with vascular surgery, VHD (, MS), ESRD, DM-2, HTN, HLD, Vision loss. Seen in clinic for bilateral hip pain with walking, especially on the sides. He also reports left small finger has numbness with exertion. Presenting today for RHC/LHC/AV valve assessment Allergies were reviewed. NPO Status Solids: >6 hours Clear liquids: >2 hours History History of anesthesia/sedation complications: No History of difficult airway: No History of neck problems, craniofacial abnormalities, head/neck surgery: No Increased risk for airway obstruction, sleep apnea, morbid obesity: No Focused Physical Exam Heart: documented in H&P Normal Lung: documented in H&P Normal Airway Mallampati: III (only soft palate and only base of uvula) Mouth opening: Normal Range of motion neck: Normal Dentition: Normal Assessment: ASA 3 Plan: Moderate sedation The risks, benefits, and treatment options of sedation were discussed with the patient/guardian and they desire to proceed. The consent form was completed and signed. Associated attestation - Opal Mojica MD - 12/10/2023 11:34 AM CDT Agree with pre procedure assessment. IM-CARDIOVASCULAR DISEASE [facility] Procedure Notes Date/Time Note Provider Source 2023-12-10 13:02:09 Right/Left Heart Cath/Coronary Angiography Date of Service: 12/10/2023 1:02 PM Indication/Diagnosis: 63 y M with PMH of PAD, VHD, ESRD, DM-2, HTN, HLD, vision loss who p/w SOB. TTE showed severe and severe MS. Fellow: Dr Margot Canales Time out completed: yes Aseptic technique: Chlorprep Local Anesthesia: 1% lidocaine without epinephrine Sedation: fentanyl 50 mcg, Versed 2 mg Access site: RFA, RFV Closure Method: Manual Compression and Mynx Complications: none Findings: Right Heart Catheterization: RA / RV 86/0/14 PA 78/33/51 PCWP 27/21/20 RA 69 sat % PA sat 66 % CO/CI (Ezekiel): 6.73/3.34 CO/CI (Thermodilution): 5.03/2.5 MS study (PCWP/LV) MG 14.1, MVA 2 study MG 68 DANIELA 0.72 Coronary dominance: right Left main: Angiographically normal LAD: Prox LAD 80% (calcified nodule) Mid LAD 50% D1: Mild athero LCX: Mild athero OM1: Ostial 50% OM2: Mild athero LPL 1/2/3: Mild athero RCA: Mid RCA 50-60% diffuse PDA: Mild athero LVEDP: 16 - 20 Right External Iliac angiogram: 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 62 cc contrast Post-Procedure Sedation Addendum Immediately prior to start of sedation, the patient was evaluated and there was no change from the pre-procedure evaluation. I was present and directed medical care. The patient underwent moderate sedation for the procedure. The medications administered were recorded in the MAR; oxygenation, ventilation and circulation were monitored continuously and were recorded in the EMR. I evaluated the patient after the procedure. The patient was evaluated immediately as recovering from sedation. Complications: none Impression: Prox LAD 80% (calcified nodule) Severe (MG 68, DANIELA 0.72) Mildly elevated left and right sided filling pressures Severe PH Normal cardiac index Plan: Bedrest 4 hours Aggressive medical Rx Consult CV surgery for CABG (MARTÍNEZ) + SAVR If not a candidate for surgery, will plan for PCI of LAD with rotational atherectomy followed by ALEXANDRA Findings and plan discussed with pt and primary team as well as CV surgery (DR Hyman). I performed this procedure and supervised the fellow. I was present for the entire duration of the procedure. Opal Mojica MD 12/10/2023 1:02 PM [facility] Notes Date/Time Note Provider Source 2023-12-28 09:56:12 Left message for patient to return my call. [facility] Conchita Obrien RN [facility] 2023-12-17 10:25:20 Left message for patient to call me at [phone] regarding a cardiology appointment regarding his Aortic Valve. T [facility] 2023-12-10 18:01:09 Patient dc instructions given. Iv removed. Site check done. Right groin c/d/I. Patient to lobby in . No distress noted. T [facility] 2023-12-10 14:50:[address] at this time. [facility] 2023-12-07 15:02:56 [facility] CARDIAC CATH PRE-CALL INSTRUCTIONS Cardiac Cath Instructions were sent to patient via: Other telephone Your physician has determined that you need to undergo a(n) LHC procedure. Listed below are some instructions for you to follow prior to the procedure. Do not eat or drink anything after midnight the night before the procedure, except for enough water to take your medications if so directed. For Carotid stenting procedures, do not take blood pressure medications the morning prior to the procedure. For Carotid angiogram procedures, do not stop taking your blood pressure medications. Take all medications except do not take metformin (Glucophage) 2 days prior to the procedure and do not take insulin or furosemide (lasix) the day of the procedure. If you are on blood thinners stop taking them 5 days prior to the procedure, unless otherwise instructed. If you are allergic to iodine or shellfish, take pre-treatment medications as directed. Please call your referring physician for prescription. Bring a list of all current medications. Bring one adult family member or friend with you to drive you home, as you will be unable to drive for 48 hours after the procedure. Due to limited space and patient privacy, only one (1) visitor is permitted with the patient while they are recovering in the recovery area. No children under the age of 14 years will be allowed in recovery area. Please park in the Hospital Garage via [address] from either [address] or [address]. Bring your parking ticket with you to be validated, only one parking ticket may be validated per patient. There may be a possibility of hospital admission or late evening discharge; therefore, bring leisure reading and an overnight bag. On the day of your procedure, come directly to the [facility] bilingual medical receptionist desk, located on the 6th floor of [facility] ([phone] You will be escorted to the Cardiac Cath recovery room. Please call the [facility] at if you have any questions regarding your procedure. Date of Procedure: 12/10/2023 Time of Procedure: 0900 For peripheral procedures, have you had an JOAQUIN or arterial duplex? not applicable For ASD/PFO procedures, have you had:Not Applicable Instructions given to patient: yes Patient provided with preferred teaching of verbal information on 12/07/2023. Shows readiness to learn. Verbal instruction teaching provided. Individual is able to read and verbalizes understanding of teaching provided. T [facility] 2023-11-16 11:00:59 Called patient to schedule left voicemail, pts daughter called back - agreed to schedule for 12/09. Zaira Pinedo [facility] 2023-11-09 10:57:34 Attempted to call pt. No answer. Detailed message left with info and to return call to clinic if he has questions. Criss Araujo RN [facility] 2023-11-08 15:04:42 Attempted to contact the patient, no answer. LMOR for patient to return call to the clinic Rekha Barnett RN [facility] 2023-11-08 13:13:43 Please call and let pt know it is okay to walk 1 mile (or more) daily, as much as he is able to tolerate. If he gets SOB or dizziness or chest pain, would stop and rest and take a break. [facility] 2023-11-08 09:10:33 Patient was seen in clinic today by Dr. Mojica. He forgot to ask if it was ok for him to continue walking 1 mile per day? He also wanted to inform Dr. Mojica that he is taking a blood thinner. Does not know the name. Not sure if he is referring to the Plavix or if something new he is taking. Advised patient to check his medicines and call back with the name/dose of medication. Kim Mayer RN [facility] 2023-09-23 11:18:16 Images from the original note were not included. Patient was notified of the results below, She verbally understood and agreed to the plan. Patient was scheduled. Thank you Valdez Chavez MD P Cardiology Nurse; P [facility] Pob Cardiology Pss Holter monitor showed mild sinus tachycardia. Increase atenolol to 25 mg twice daily. Previously I requested to schedule appointment with interventional cardiology. However, an appointment with Dr. Escalante EP was scheduled. Please schedule appointment with [facility] interventional clinic Dr. Mojica or Dr. Shields. Cancel appt with Dr. Escalante. Melinda Pacheco MA [facility] 2023-09-10 10:41:13 Patient has been scheduled to see Dr. Hoffmann. He will review the results when goes to the appointment. Deidra Sanders [facility] 2023-09-10 10:07:10 VM left to call office back for results and new referral appt needed. Valdez Chavez MD 09/08/2023 8:38 AM CDT Echocardiogram showed severe aortic stenosis and mitral stenosis. Please make appointment with [facility] interventional clinic. [facility] 2023-09-09 10:58:19 Patient is requesting a call back in regards to the echo results. Please advise. [facility] 2023-09-07 16:00:00 24 hour holter (SEER 1000, #1) applied to patient, tolerated well. Wear, care, diary entry and monitor return teaching given, understanding verbalized. Monitor to be returned on Wed09/08/2023 by 4:45 PM, return letter acknowledged and signed. STO Bush MA [facility] 2023-07-13 14:20:00 Addended by: MARIANA BUSH on: 07/13/2023 03:43 PM Modules accepted: Orders AL DISPLAY MANAGER Mariana Bush MA [facility] 2023-07-13 14:20:00 Addended by: VALDEZ CHAVEZ MD on: 09/08/2023 08:37 AM Modules accepted: Orders T [facility]
--- NOTE | 2024-04-15 15:52 | ER ---
Nurse's Notes [facility] Name: Toni Duncan Age: 64 yrs Sex: Male : 1960 Arrival Date: 04/15/2024 Time: 14:07 Bed 6 Private MD: Diagnosis: Bleeding from dialysis fistula Presentation: 04/15 14:20 Chief complaint: Patient states: Pt states he has oozing bleeding from his dialysis tl4 fistula in his left arm x approx 1 hour. Pt states no complications with dialysis today. Pt takes low dose aspirin and blood thinner. Coronavirus screen: At this time, the client does not indicate any symptoms associated with coronavirus-19. Ebola Screen: No symptoms or risks identified at this time. Initial Sepsis Screen: Does the patient meet any 2 criteria? No. Patient's initial sepsis screen is negative. Does the patient have a suspected source of infection? No. Patient's initial sepsis screen is negative. Risk Assessment: Do you want to hurt yourself or someone else? Patient reports no desire to harm self or others. Onset of symptoms was April 15, 2024 at 13:30. 14:20 Method Of Arrival: Ambulatory tl4 14:20 Acuity: MIKE 3 tl4 Triage Assessment: 14:23 General: Appears in no apparent distress. Behavior is calm, cooperative. Pain: Denies tl4 pain. EENT: No signs and/or symptoms were reported regarding the EENT system. Neuro: Level of Consciousness is awake, alert, obeys commands, Oriented to person, place, time, situation. Cardiovascular: Capillary refill < 3 seconds Patient's skin is warm and dry. Respiratory: Airway is patent Respiratory effort is even, unlabored, Respiratory pattern is regular, symmetrical. GI: No signs and/or symptoms were reported involving the gastrointestinal system. : No signs and/or symptoms were reported regarding the genitourinary system. Derm: controlled bleeding left upper arm at site of dialysis fistula. Musculoskeletal: No signs and/or symptoms reported regarding the musculoskeletal system. Historical: - Allergies: 14:23 No Known Allergies; tl4 - PMHx: 14:23 Diabetes - NIDDM; dialyis; ESRD; Hypertension; tl4 - Immunization history:: Adult Immunizations unknown. - Infectious Disease History:: Denies. - Social history:: Smoking status: Patient denies any tobacco usage or history of. - Family history:: not pertinent. Screenin:44 [facility] ED Fall Risk Assessment (Adult) History of falling in the last 3 months, ko1 including since admission No falls in past 3 months (0 pts) Confusion or Disorientation No (0 pts) Intoxicated or Sedated No (0 pts) Impaired Gait No (0 pts) Mobility Assist Device Used No (0 pt) Altered Elimination No (0 pt) Score/Fall Risk Level 0 - 2 = Low Risk Oriented to surroundings, Maintained a safe environment, Educated pt \T\ family on fall prevention, incl call for assistance when getting out of bed, Assessed \T\ reinforced patient's understanding of fall precautions, Hourly rounding (assess needs \T\ fall precautionary measures) done. Abuse screen: Denies threats or abuse. Denies injuries from another. Nutritional screening: No deficits noted. Tuberculosis screening: No symptoms or risk factors identified. Assessment: 14:25 Neuro: Level of Consciousness is awake, alert, obeys commands, Oriented to person, aa5 place, time, situation. Respiratory: Airway is patent Respiratory effort is even, unlabored, Respiratory pattern is regular, symmetrical. Derm: Skin is dry, Skin is normal, Skin temperature is warm. 14:25 Reassessment: Pt holding pressure with gauze to left upper arm dialysis fistula, aa5 bleeding controlled. . General: Appears comfortable, Behavior is calm, cooperative. Pain: Denies pain. 14:45 General: Appears in no apparent distress. Behavior is calm, cooperative, appropriate ko1 for age. Pain: Denies pain. Neuro: No deficits noted. Cardiovascular: No deficits noted. Respiratory: No deficits noted. GI: No deficits noted. : No deficits noted. EENT: No deficits noted. Derm: No deficits noted. Musculoskeletal: No deficits noted. 15:05 Reassessment: Pressure dressing + surgiseal applied to LUE. hb 15:45 Reassessment: Bleeding to left dialysis fistula has stopped, notified. . aa5 15:55 Neuro: Level of Consciousness is awake, alert, obeys commands, Oriented to person, aa5 place, time, situation. Respiratory: Airway is patent Respiratory effort is even, unlabored, Respiratory pattern is regular, symmetrical. Derm: Skin is dry, Skin is normal, Skin temperature is warm. 15:55 Reassessment: No active bleeding to left dialysis fistula site, gauze and adilene bandage aa5 dressing re-applied to LUE per VO. . Vital Signs: 14:20 BP 188 / 86; Pulse 69; Resp 18; Temp 97.8(O); Pulse Ox 99% ; Weight 85.73 kg; Height 5 tl4 ft. 8 in. ; Pain 0/10; 15:29 BP 174 / 82; Pulse 74; Resp 16; Pulse Ox 100% on R/A; ko1 14:20 Body Mass Index 28.74 (85.73 kg, 172.72 cm) tl4 14:20 Pain Scale: Adult tl4 ED Course: 14:11 Patient arrived in ED. ra3 14:13 Josr Monae MD is Attending Physician. rt 14:23 Triage completed. tl4 14:24 Arm band placed on right wrist. tl4 14:33 Veronica Kumar, RN is Primary Nurse. aa5 14:44 Patient has correct armband on for positive identification. Bed in low position. Call ko1 light in reach. Side rails up X 1. Provided Education on: bleeding control. Pulse ox on. NIBP on. Door closed. Noise minimized. Lights dimmed. 14:44 No provider procedures requiring assistance completed. ko1 15:29 Patient did not have IV access during this emergency room visit. ko1 Administered Medications: No medications were administered Medication: 14:44 VIS not applicable for this client. ko1 Outcome: 15:51 Discharge ordered by MD. rt 15:55 Discharged to home ambulatory, with significant other, aa5 15:55 Condition: improved 15:55 Discharge instructions given to patient, Instructed on discharge instructions, follow up and referral plans. Demonstrated understanding of instructions, follow-up care, 15:58 Patient left the ED. aa5 Signatures: Veronica Kumar, ABELARDO RN aa5 Alisson Mace RN RN hb Oliver, Kathy, RN RN ko1 Josr Monae MD MD rt Aurelio Carballo RN RN tl4 Martha Lares ra3
--- NOTE | 2024-04-15 15:52 | EDPHYS ---
Physician Documentation [facility] Name: Toni Duncan Age: 64 yrs Sex: Male : 1960 Arrival Date: 04/15/2024 Time: 14:07 Bed 6 Private MD: ED Physician Josr Monae HPI: 04/15 17:22 This 64 yrs old Black Male presents to ER via Ambulatory with complaints of left arm rt bleeding post Dialysis. 17:22 Patient presents to the ED with bleeding from dialysis fistula. He finished dialysis rt today without any problems. States that the clamp was not secured. Did put a dressing on it. Denies of acute complaints at this time, symptoms are moderate severity, no other aggravating or elevating factors.. Historical: - Allergies: 14:23 No Known Allergies; tl4 - PMHx: 14:23 Diabetes - NIDDM; dialyis; ESRD; Hypertension; tl4 - Immunization history:: Adult Immunizations unknown. - Infectious Disease History:: Denies. - Social history:: Smoking status: Patient denies any tobacco usage or history of. - Family history:: not pertinent. ROS: 17:22 Constitutional: Negative for fever, chills, and weight loss, Cardiovascular: Negative rt for chest pain, palpitations, and edema, Respiratory: Negative for shortness of breath, cough, wheezing, and pleuritic chest pain, Abdomen/GI: Negative for abdominal pain, nausea, vomiting, diarrhea, and constipation, 17:22 MS/extremity: Positive for Dialysis fistula bleeding, Exam: 17:22 Constitutional: This is a well developed, well nourished patient who is awake, alert, rt and in no acute distress. Head/Face: Normocephalic, atraumatic. Skin: Warm, dry with normal turgor. Normal color with no rashes, no lesions, and no evidence of cellulitis. Neuro: Awake and alert, GCS 15, oriented to person, place, time, and situation. Cranial nerves II-XII grossly intact. Motor strength 5/5 in all extremities. Sensory grossly intact. Cerebellar exam normal. Normal gait. 17:22 Musculoskeletal/extremity: Very minimal bleeding from fistula, good thrill. Vital Signs: 14:20 BP 188 / 86; Pulse 69; Resp 18; Temp 97.8(O); Pulse Ox 99% ; Weight 85.73 kg; Height 5 tl4 ft. 8 in. ; Pain 0/10; 15:29 BP 174 / 82; Pulse 74; Resp 16; Pulse Ox 100% on R/A; ko1 14:20 Body Mass Index 28.74 (85.73 kg, 172.72 cm) tl4 14:20 Pain Scale: Adult tl4 MDM: 14:22 Medical Screening Exam initiated rt 17:22 Differential Diagnosis Dialysis fistula bleed. Data reviewed: vital signs, nurses rt notes. Test considered but Not performed: Other Details Bleeding only minimal at time of evaluation in the ED, stable vital signs, no signs suggestive of anemia, CBC is not decayed. Counseling: I had a detailed discussion with the patient and/or guardian regarding the historical points, exam findings, and any diagnostic results supporting the discharge/admit diagnosis, the need for outpatient follow up. ED course: Pressure was held, bleeding is completely stopped, patient is stable for outpatient care.. Administered Medications: No medications were administered Disposition Summary: 04/15/24 15:51 Discharge Ordered Notes: Location: Home rt Problem: new rt Symptoms: have improved rt Condition: Stable rt Diagnosis - Bleeding from dialysis fistula rt Followup: rt - With: Private Physician - When: 2 - 3 days - Reason: Discharge Instructions: - Discharge Summary Sheet rt - Dialysis Vascular Access Malfunction rt Forms: - Medication Reconciliation Form rt - Antibiotic Education rt - Prescription Opioid Use rt - Patient Portal Instructions rt - Leadership Thank You Letter rt Signatures: Josr Monae MD MD rt Aurelio Carballo RN RN tl4
[2024-04-15 16:02] VITALS: TEMP 97.8
[2024-04-15 16:03] VITALS: BP 174/82; O2SAT 100
== END 2024-04-15 15:58 | disposition home or self-care (01) ==
LOC: ER 14:07
DX: T82.838A Hemorrhage due to vascular prosthetic devices, implants and grafts, initial encounter (principal); E11.22 Type 2 diabetes mellitus with diabetic chronic kidney disease; I12.0 Hypertensive chronic kidney disease with stage 5 chronic kidney disease or end stage renal disease; N18.6 End stage renal disease; Z99.2 Dependence on renal dialysis
CPT/HCPCS: 99283